=== PATIENT | female | born 1965 | race Two or more races ===

== ENCOUNTER → 2022-06-16 13:52 | Outpatient (BNVA) | payer OTHER, SELFPAY | PROVIDERS: Visit Provider Physician Assistant | DX: E66.9 Obesity, unspecified (principal); Z68.37 Body mass index [BMI] 37.0-37.9, adult; I10 Essential (primary) hypertension; E78.5 Hyperlipidemia, unspecified; E03.9 Hypothyroidism, unspecified; K76.0 Fatty (change of) liver, not elsewhere classified; G47.33 Obstructive sleep apnea (adult) (pediatric) | CPT/HCPCS: 99202 ==

== ENCOUNTER 2022-06-27 09:23 | Outpatient (REF) | payer OTHER, SELFPAY ==
[2022-06-27 09:43] LABS: MANUAL DIFF FLAG NO
[2022-06-27 10:23] LABS: Basophils Percent Auto 0.5 % (0-2); Eosinophils Absolute Auto 0.1 X10*3/uL (0.0-0.4); Eosinophils Percent Auto 1.4 % (0-4); Hematocrit 32.4 % (37.0-47.0); Hemoglobin 10.8 g/dl (12.0-16.0); Imm Gran Abs Auto 0.01 X10*3/uL (0.00-0.03); Imm Gran Pct Auto 0.2 % (0.0-0.4); Lymphocytes Absolute Auto 2.3 X10*3/uL (1.2-4.9); Lymphocytes Percent Auto 39.7 % (20-40); Mean Corpuscular HGB Conc 33.3 g/dl (31.0-35.0); Mean Corpuscular Hemoglobin 30.8 pg (27.0-33.0); Mean Corpuscular Volume 92.3 fL (80.0-98.0); Mean Platelet Volume 9.7 fL (9.4-12.3); Monocytes Absolute Auto 0.4 X10*3/uL (0.1-1.2); Monocytes Percent Auto 7.4 % (2-11); Neutrophils Percent Auto 50.8 % (45-73); Platelet Count 225 X10*3/uL (160-400); Red Blood Count 3.51 X10*6/uL (4.20-5.50); Red Cell Distribution Width 12.3 % (11.0-16.0); White Blood Count 5.8 X10*3/uL (4.8-10.8)
[2022-06-27 10:35] LABS: Estimated Average Glucose 94 mg/dL; Hemoglobin A1c % 4.9 %
[2022-06-27 10:57] LABS: Alanine Aminotransferase 47 U/L (0-31); Albumin Level 4.5 g/dL (3.5-5.0); Alkaline Phosphatase 89 U/L (39-117); Anion Gap 15 (12-20); Aspartate Amino Transferase 40 U/L (5-31); Blood Urea Nitrogen 11 mg/dL (9-16); C Reactive Protein 0.22 mg/dL (< or = 0.50); Calcium 10.1 mg/dL (8.4-10.2); Carbon Dioxide 26 mmol/L (22-29); Chloride 106 mmol/L (96-108); Cholesterol 271 mg/dL; Estimated Glomerular Filt Rate > 60; Glucose Random 92 mg/dL (60-115); HDL Cholesterol 38 mg/dL; Iron 109 mcg/dL (30-160); LDL Cholesterol Calculated 200 mg/dl; Percent Iron Saturation 31 % (15-50); Sodium 143 mmol/L (135-145); Total Iron Binding Capacity 352 mcg/dL (228-428); Triglycerides 167 mg/dL; Unsaturated Iron Binding 243 ug/dL
[2022-06-27 11:30] LABS: Ferritin 322 ng/mL (10-250); TSH reflex Free T4 4.76 uIU/mL (0.32-4.0); Vitamin D 25-OH Total 13.6 ng/mL (>30)
[2022-06-27 11:38] LABS: Folate > 20.0 ng/mL (> or = 4.0); Vitamin B12 380 pg/mL (200-900)
[2022-06-27 12:02] LABS: Free T4 (Free Thyroxine) 0.96 ng/dL (0.71-1.85); Insulin 24 uU/mL (2-29)
[2022-06-29 12:37] LABS: Calcium (PTHI) 10.3 mg/dL (8.6-10.4); PTHI 61 pg/mL (16-77)
[2022-06-30 05:02] LABS: Zinc 102 mcg/dL (60-130)
[2022-07-01 17:36] LABS: Vitamin A 32 mcg/dL (38-98)
[2022-07-02 07:12] LABS: Vitamin B1 9 nmol/L (8-30)
== END 2022-06-27 09:24 | disposition home or self-care (01) ==
LOC: HO.LAB 09:23
PROVIDERS: Visit Provider Physician Assistant
DX: I10 Essential (primary) hypertension (principal); E66.9 Obesity, unspecified; G47.33 Obstructive sleep apnea (adult) (pediatric)
CPT/HCPCS: 36415; 80053; 80061; 82306; 82607; 82728; 82746; 83036; 83525; 83540; 83970; 84425; 84439; 84443; 84590; 84630; 85025; 86140

== ENCOUNTER → 2022-07-25 09:44 | Outpatient (BNVA) | payer OTHER, SELFPAY | PROVIDERS: Visit Provider Physician Assistant | DX: Z11.0 Encounter for screening for intestinal infectious diseases (principal); E66.9 Obesity, unspecified; E78.5 Hyperlipidemia, unspecified; E03.9 Hypothyroidism, unspecified; E50.9 Vitamin A deficiency, unspecified; E55.9 Vitamin D deficiency, unspecified; D64.9 Anemia, unspecified; G47.33 Obstructive sleep apnea (adult) (pediatric) | CPT/HCPCS: 99211; 99212 ==

== ENCOUNTER 2022-07-26 15:09 | Outpatient (REF) | payer OTHER, SELFPAY ==
[2022-07-27 12:16] LABS: H Pylori Breath Test Positive (Negative)
== END 2022-07-26 15:10 | disposition home or self-care (01) ==
LOC: HO.LNP 15:09
PROVIDERS: Visit Provider Physician Assistant
DX: E66.01 Morbid (severe) obesity due to excess calories (principal)
CPT/HCPCS: 83013

== ENCOUNTER → 2022-07-27 10:12 | Outpatient (BNVA) | payer OTHER, SELFPAY | PROVIDERS: Visit Provider Dietitian, Registered | DX: E66.9 Obesity, unspecified (principal) | CPT/HCPCS: 97802 ==

== ENCOUNTER → 2022-08-15 09:41 | Outpatient (BNVA) | payer OTHER, SELFPAY | PROVIDERS: Visit Provider Physician Assistant | DX: Z11.0 Encounter for screening for intestinal infectious diseases (principal); E66.9 Obesity, unspecified; Z68.35 Body mass index [BMI] 35.0-35.9, adult | CPT/HCPCS: 99211; 99212 ==

== ENCOUNTER 2022-08-15 14:36 | Outpatient (REF) | payer OTHER, SELFPAY ==
[2022-08-19 11:04] LABS: H Pylori Breath Test Negative (Negative)
== END 2022-08-15 14:37 | disposition home or self-care (01) ==
LOC: HO.LNP 14:36
PROVIDERS: Visit Provider Physician Assistant
DX: Z01.818 Encounter for other preprocedural examination (principal)
CPT/HCPCS: 83013

== ENCOUNTER → 2022-09-06 15:01 | Outpatient (BNVA) | payer OTHER, SELFPAY | PROVIDERS: Visit Provider Dietitian, Registered | DX: E66.9 Obesity, unspecified (principal); Z68.35 Body mass index [BMI] 35.0-35.9, adult; Z71.3 Dietary counseling and surveillance | CPT/HCPCS: 97803 ==

== ENCOUNTER → 2022-09-12 09:26 | Outpatient (BNVA) | payer OTHER, SELFPAY | PROVIDERS: Visit Provider Physician Assistant | DX: E66.9 Obesity, unspecified (principal); G47.33 Obstructive sleep apnea (adult) (pediatric); I10 Essential (primary) hypertension; Z68.34 Body mass index [BMI] 34.0-34.9, adult | CPT/HCPCS: 99212 ==

== ENCOUNTER → 2022-09-14 12:16 | Outpatient (BNVA) | payer OTHER, SELFPAY | PROVIDERS: Visit Provider Counselor Mental Health | DX: F33.0 Major depressive disorder, recurrent, mild (principal); E66.9 Obesity, unspecified | CPT/HCPCS: 90791 ==

== ENCOUNTER 2022-10-03 11:20 | Outpatient (REF) | payer OTHER, SELFPAY | END 2022-10-03 11:21 | disposition home or self-care (01) | LOC: HO.XRAY 11:20 | PROVIDERS: Visit Provider Physician Assistant | DX: E66.9 Obesity, unspecified (principal); E78.5 Hyperlipidemia, unspecified; E03.9 Hypothyroidism, unspecified; K76.0 Fatty (change of) liver, not elsewhere classified; G47.33 Obstructive sleep apnea (adult) (pediatric); I10 Essential (primary) hypertension; Z79.899 Other long term (current) drug therapy; Z71.3 Dietary counseling and surveillance; Z68.35 Body mass index [BMI] 35.0-35.9, adult | CPT/HCPCS: 99212 ==

== ENCOUNTER → 2022-10-13 09:40 | Outpatient (REF) | payer OTHER, SELFPAY ==
--- NOTE | ~2022-10-13 | XR_ITS ---
EXAMINATION: XR chest 2V CLINICAL INFORMATION: Reason for Exam E66.9 - Obesity, unspecified COMPARISON: None TECHNIQUE: 2 views of the chest FINDINGS: Clear lungs. No pneumothorax or pleural effusion. Normal cardiomediastinal silhouette. XR/XR chest 2V IMPRESSION: * Clear lungs.
--- NOTE | 2022-10-13 10:13 | ECG_ITS ---
Test Reason : E66.9 Obesity Blood Pressure : / mmHG Vent. Rate : 067 BPM Atrial Rate : 067 BPM P-R Int : 162 ms QRS Dur : 086 ms QT Int : 400 ms P-R-T Axes : 030 025 069 degrees QTc Int : 422 ms Normal sinus rhythm Normal ECG No previous ECGs available Referred By: Clary Dietz Electronically Signed By:CLINTON ARANGO MD
== END ==
LOC: HO.CARD 09:40
PROVIDERS: Visit Provider Physician Assistant
DX: E66.9 Obesity, unspecified (principal)
CPT/HCPCS: 71046; 93005; 97803

== ENCOUNTER → 2022-11-03 14:03 | Outpatient (BNVA) | payer OTHER, SELFPAY | PROVIDERS: Visit Provider Physician Assistant | DX: E66.9 Obesity, unspecified (principal); Z68.35 Body mass index [BMI] 35.0-35.9, adult | CPT/HCPCS: 99212 ==

== ENCOUNTER 2022-12-02 09:27 | Outpatient (REF) | payer OTHER, SELFPAY ==
--- NOTE | ~2022-12-02 | US_ITS ---
EXAMINATION: US COMPLETE ABDOMEN WITH LIVER ELASTOGRAPHY CLINICAL INFORMATION: Obesity COMPARISON: None. TECHNIQUE: Real-time imaging of the abdominal viscera. Noninvasive ultrasound liver fibrosis assessment is performed using Yuliya ElastPQ point quantification shear wave elastography (2D-SWE) with a C5-2 MHz transducer. Multiple elastography samples are obtained. FINDINGS: PANCREAS: Normal. The visualized pancreatic head and body are normal in appearance. The remainder of the pancreas is obscured from visualization by the overlying bowel gas. ABDOMINAL AORTA: The proximal, middle, and distal aortic segments are normal in caliber. INFERIOR VENA CAVA: Visualized portions are normal. LIVER: Normal. The liver demonstrates normal size, contour and echogenicity. No focal lesion or intrahepatic biliary duct dilatation. The right lobe measures 15.6 cm in length. The left lobe measures 10.8 cm in length. Portal flow is hepatopedal Shear wave liver elastography median stiffness is 1.86 m/s (reference: normal median stiffness is 1.3 m/s or less). IQR/median stiffness to assess sampling precision is 0.34 (reference: good quality data set is IQR/median stiffness of 0.15 or less). GALLBLADDER: Normal. The gallbladder is physiologically distended without evidence of stones, sludge, polyps, wall thickening or pericholecystic fluid. COMMON BILE DUCT: Normal in caliber measuring 0.6 cm in diameter. RIGHT KIDNEY: Normal. No hydronephrosis. No renal calculi or focal parenchymal lesions. The kidney measures 13.1 cm in maximum dimension. LEFT KIDNEY: Normal. No hydronephrosis. No renal calculi or focal parenchymal lesions. The kidney measures 11.9 cm in maximum dimension. SPLEEN: Normal. The spleen measures 10.2 cm in maximum dimension. FREE FLUID: None. US/US abdomen comp w elastography IMPRESSION: 1. Hepatic steatosis without focal lesion. 2. Liver elastography: Median liver stiffness measures 1.86 m/s corresponding to cACLD (suggestive) REFERENCE: Society of Radiologists in Ultrasound Liver Stiffness Thresholds (2019): LIVER STIFFNESS THRESHOLDS: *Liver Stiffness equal or less than 1.3 m/s: High probability of being normal. *Liver Stiffness less than 1.7 m/s: In the absence of other known clinical signs, rules out compensated advanced chronic liver disease. *Liver Stiffness 1.7-2.1 m/s: Suggestive of compensated advanced chronic liver disease but need further test for confirmation. *Liver Stiffness over 2.1 m/s: Rules in compensated advanced chronic liver disease. *Liver Stiffness over 2.4 m/s: Suggestive of clinically significant portal hypertension. QUALITY OF DATA SET: *IQR/Median value equal or less than 0.15 implies a quality data set. *IQR/Median value over 0.15 implies a poor quality data set. SIGNIFICANT CHANGE FROM PRIOR EXAM: Significant change if liver stiffness measurement is 10% or greater from prior exam. OTHER CONSIDERATIONS: The stage of liver fibrosis may be overestimated in the setting of acute hepatitis, liver inflammation, elevated liver function tests, hepatic vascular congestion, obstructive cholestasis, non-fasting state, and infiltrative diseases such as amyloidosis and lymphoma. In some patients with NAFLD, the liver stiffness thresholds for compensated advanced chronic liver disease may be lower. In causes other than viral hepatitis and NAFLD, liver stiffness thresholds are not well established.
== END 2022-12-02 09:28 | disposition home or self-care (01) ==
LOC: HO.XRAY 09:27
PROVIDERS: Visit Provider Physician Assistant
DX: E66.9 Obesity, unspecified (principal)
CPT/HCPCS: 76705; 76981

== ENCOUNTER 2022-12-13 12:02 | Outpatient (REF) | payer OTHER, SELFPAY ==
[2022-12-13 12:59] LABS: MANUAL DIFF FLAG NO
[2022-12-13 13:18] LABS: Basophils Percent Auto 0.4 % (0-2); Eosinophils Absolute Auto 0.2 X10*3/uL (0.0-0.4); Eosinophils Percent Auto 1.8 % (0-4); Hematocrit 35.1 % (37.0-47.0); Hemoglobin 11.4 g/dl (12.0-16.0); Imm Gran Abs Auto 0.04 X10*3/uL (0.00-0.03); Imm Gran Pct Auto 0.4 % (0.0-0.4); Lymphocytes Absolute Auto 2.7 X10*3/uL (1.2-4.9); Lymphocytes Percent Auto 25.6 % (20-40); Mean Corpuscular HGB Conc 32.5 g/dl (31.0-35.0); Mean Corpuscular Hemoglobin 29.6 pg (27.0-33.0); Mean Corpuscular Volume 91.2 fL (80.0-98.0); Mean Platelet Volume 9.9 fL (9.4-12.3); Monocytes Absolute Auto 0.7 X10*3/uL (0.1-1.2); Monocytes Percent Auto 6.6 % (2-11); Neutrophils Absolute Auto 6.9 x10*3/uL (2.0-8.3); Neutrophils Percent Auto 65.2 % (45-73); Platelet Count 293 X10*3/uL (160-400); Red Blood Count 3.85 X10*6/uL (4.20-5.50); Red Cell Distribution Width 12.2 % (11.0-16.0); White Blood Count 10.5 X10*3/uL (4.8-10.8)
[2022-12-13 14:32] LABS: Vitamin D 25-OH Total 15.7 ng/mL (>30)
== END 2022-12-13 12:03 | disposition home or self-care (01) ==
LOC: HO.LAB 12:02
PROVIDERS: Visit Provider Physician Assistant
DX: E66.9 Obesity, unspecified (principal); I10 Essential (primary) hypertension; E78.5 Hyperlipidemia, unspecified; E03.9 Hypothyroidism, unspecified; K76.0 Fatty (change of) liver, not elsewhere classified; G47.33 Obstructive sleep apnea (adult) (pediatric); D64.9 Anemia, unspecified; E50.9 Vitamin A deficiency, unspecified; E55.9 Vitamin D deficiency, unspecified; Z71.3 Dietary counseling and surveillance; Z68.34 Body mass index [BMI] 34.0-34.9, adult
CPT/HCPCS: 36415; 82306; 84443; 84590; 85025; 99212

== ENCOUNTER → 2022-12-22 12:54 | Outpatient (BNVA) | payer OTHER, SELFPAY | PROVIDERS: Visit Provider Dietitian, Registered | DX: E66.9 Obesity, unspecified (principal); Z68.34 Body mass index [BMI] 34.0-34.9, adult | CPT/HCPCS: 97803 ==

== ENCOUNTER 2023-01-03 10:20 | Outpatient (REF) | payer OTHER, SELFPAY ==
--- NOTE | ~2023-01-03 | FL_ITS ---
PROCEDURE: XR FLUOROSCOPY UPPER GI WITH AIR CLINICAL INFORMATION: Preop. Morbid obesity. COMPARISON: None available. TECHNIQUE: Routine upper GI air-contrast study was performed in upright and lying position. FINDINGS: Following oral administration of thick barium and effervescent granules there is normal propagation of bolus from the oral cavity through the pharynx, esophagus into stomach without any evidence of obstruction, narrowing or stricture. On placing patient lying there is moderate gastroesophageal reflux without hiatal hernia. Rest of the course of the stomach, duodenal bulb and the sweep is normal. The mucosal pattern of stomach and the duodenum is normal. FLUOROSCOPY TIME: 1.2 minutes DOSE AREA PRODUCT: 33.155 uGy-m2 (microgray-meter squared) FL/FL upper GI w air IMPRESSION: Moderate gastroesophageal reflux without hiatal hernia.
== END 2023-01-03 10:21 | disposition home or self-care (01) ==
LOC: HO.XRAY 10:20
PROVIDERS: Visit Provider Physician Assistant
DX: G93.2 Benign intracranial hypertension (principal); E66.9 Obesity, unspecified
CPT/HCPCS: 74246

== ENCOUNTER → 2023-01-16 13:25 | Outpatient (BNVA) | payer OTHER, SELFPAY | PROVIDERS: Visit Provider Physician Assistant | DX: E66.9 Obesity, unspecified (principal); E78.5 Hyperlipidemia, unspecified; E03.9 Hypothyroidism, unspecified; I10 Essential (primary) hypertension; G47.33 Obstructive sleep apnea (adult) (pediatric); Z68.34 Body mass index [BMI] 34.0-34.9, adult | CPT/HCPCS: 99212 ==

== ENCOUNTER → 2023-01-18 14:04 | Outpatient (BNVA) | payer OTHER, SELFPAY | PROVIDERS: Visit Provider Surgery | DX: E66.9 Obesity, unspecified (principal); E55.9 Vitamin D deficiency, unspecified; E50.9 Vitamin A deficiency, unspecified; E78.5 Hyperlipidemia, unspecified; F33.0 Major depressive disorder, recurrent, mild; D64.9 Anemia, unspecified; G47.33 Obstructive sleep apnea (adult) (pediatric); K76.0 Fatty (change of) liver, not elsewhere classified; I10 Essential (primary) hypertension; A04.8 Other specified bacterial intestinal infections; Z68.34 Body mass index [BMI] 34.0-34.9, adult | CPT/HCPCS: 99212 ==

== ENCOUNTER → 2023-01-24 10:49 | Outpatient (BNVA) | payer OTHER, SELFPAY | PROVIDERS: Visit Provider Surgery | DX: E66.9 Obesity, unspecified (principal); D64.9 Anemia, unspecified; I10 Essential (primary) hypertension; E78.5 Hyperlipidemia, unspecified; E03.9 Hypothyroidism, unspecified; K76.0 Fatty (change of) liver, not elsewhere classified; G47.33 Obstructive sleep apnea (adult) (pediatric); A04.8 Other specified bacterial intestinal infections; E50.9 Vitamin A deficiency, unspecified; E55.9 Vitamin D deficiency, unspecified; F33.0 Major depressive disorder, recurrent, mild; Z99.89 Dependence on other enabling machines and devices | CPT/HCPCS: 99211; 99212 ==

== ENCOUNTER 2023-01-24 18:26 | Outpatient (REF) | payer OTHER, SELFPAY ==
[2023-01-27 11:17] LABS: H Pylori Breath Test Negative (Negative)
== END 2023-01-24 18:27 | disposition home or self-care (01) ==
LOC: HO.LNP 18:26
PROVIDERS: Visit Provider Surgery
DX: A04.8 Other specified bacterial intestinal infections (principal)
CPT/HCPCS: 83013

== ENCOUNTER 2023-01-26 08:43 | Outpatient (REF) | payer OTHER, SELFPAY ==
[2023-01-26 09:06] LABS: MANUAL DIFF FLAG NO
[2023-01-26 09:49] LABS: Basophils Absolute Auto 0.1 X10*3/uL (0.0-0.2); Eosinophils Absolute Auto 0.1 X10*3/uL (0.0-0.4); Hematocrit 30.2 % (37.0-47.0); Hemoglobin 10.2 g/dl (12.0-16.0); Imm Gran Abs Auto 0.02 X10*3/uL (0.00-0.03); Imm Gran Pct Auto 0.3 % (0.0-0.4); Lymphocytes Absolute Auto 2.3 X10*3/uL (1.2-4.9); Lymphocytes Percent Auto 37.7 % (20-40); Mean Corpuscular HGB Conc 33.8 g/dl (31.0-35.0); Mean Corpuscular Hemoglobin 30.3 pg (27.0-33.0); Mean Corpuscular Volume 89.6 fL (80.0-98.0); Mean Platelet Volume 9.7 fL (9.4-12.3); Monocytes Absolute Auto 0.5 X10*3/uL (0.1-1.2); Monocytes Percent Auto 8.9 % (2-11); Neutrophils Percent Auto 50.1 % (45-73); Platelet Count 256 X10*3/uL (160-400); Red Blood Count 3.37 X10*6/uL (4.20-5.50); Red Cell Distribution Width 12.8 % (11.0-16.0); White Blood Count 6.1 X10*3/uL (4.8-10.8)
[2023-01-26 09:54] LABS: INTERNATIONAL NORM RATIO 1.1 (0.9-1.1); Prothrombin Time 12.1 SEC (10.0-13.1)
[2023-01-26 09:57] LABS: Partial Thromboplastin Time 35.3 SEC (26.0-36.4)
[2023-01-26 10:01] LABS: Estimated Average Glucose 94 mg/dL; Hemoglobin A1c % 4.9 %
[2023-01-26 10:29] LABS: Alanine Aminotransferase 30 U/L (0-31); Albumin Level 4.1 g/dL (3.5-5.0); Alkaline Phosphatase 94 U/L (39-117); Anion Gap 12 (12-20); Aspartate Amino Transferase 29 U/L (5-31); Bilirubin Total 1.8 mg/dL (0.0-1.0); Blood Urea Nitrogen 12 mg/dL (9-16); C Reactive Protein 0.15 mg/dL (< or = 0.50); Calcium 9.5 mg/dL (8.4-10.2); Carbon Dioxide 24 mmol/L (22-29); Chloride 109 mmol/L (96-108); Cholesterol 182 mg/dL; Estimated Glomerular Filt Rate > 60; Glucose Random 93 mg/dL (60-115); HDL Cholesterol 39 mg/dL; Iron 170 mcg/dL (30-160); LDL Cholesterol Calculated 121 mg/dl; Percent Iron Saturation 63 % (15-50); Potassium 4.2 mmol/L (3.3-5.1); Sodium 141 mmol/L (135-145); Total Iron Binding Capacity 272 mcg/dL (228-428); Total Protein 7.2 g/dL (6.5-8.0); Triglycerides 112 mg/dL; Unsaturated Iron Binding 102 ug/dL
[2023-01-26 10:55] LABS: Ferritin 489 ng/mL (10-250); TSH reflex Free T4 3.06 uIU/mL (0.32-4.0); Vitamin B12 560 pg/mL (200-900); Vitamin D 25-OH Total 15.2 ng/mL (>30)
[2023-01-30 15:24] LABS: Calcium (PTHI) 9.7 mg/dL (8.6-10.4); PTHI 59 pg/mL (16-77)
[2023-01-31 05:39] LABS: Zinc 79 mcg/dL (60-130)
[2023-02-02 01:14] LABS: Vitamin A 32 mcg/dL (38-98)
[2023-02-02 12:03] LABS: Vitamin B1 22 nmol/L (8-30)
== END 2023-01-26 08:44 | disposition home or self-care (01) ==
LOC: HO.LAB 08:43
PROVIDERS: Visit Provider Surgery
DX: I10 Essential (primary) hypertension (principal); A04.8 Other specified bacterial intestinal infections; D64.9 Anemia, unspecified; E03.9 Hypothyroidism, unspecified; E50.9 Vitamin A deficiency, unspecified; E55.9 Vitamin D deficiency, unspecified; E66.9 Obesity, unspecified; E78.5 Hyperlipidemia, unspecified; F33.0 Major depressive disorder, recurrent, mild; G47.33 Obstructive sleep apnea (adult) (pediatric); K76.0 Fatty (change of) liver, not elsewhere classified
CPT/HCPCS: 36415; 80053; 80061; 82306; 82607; 82728; 83036; 83540; 83970; 84425; 84443; 84590; 84630; 85025; 85610; 85730; 86140

== ENCOUNTER → 2023-02-01 12:19 | Outpatient (BNVA) | payer OTHER, SELFPAY | PROVIDERS: Visit Provider Physician Assistant | DX: E66.9 Obesity, unspecified (principal); D64.9 Anemia, unspecified; I10 Essential (primary) hypertension; G47.33 Obstructive sleep apnea (adult) (pediatric); E03.9 Hypothyroidism, unspecified; Z68.33 Body mass index [BMI] 33.0-33.9, adult | CPT/HCPCS: 99212 ==

== ENCOUNTER → 2023-02-08 09:13 | Outpatient (BNVA) | payer OTHER, SELFPAY | PROVIDERS: Visit Provider Physician Assistant | DX: D64.9 Anemia, unspecified (principal); E66.9 Obesity, unspecified; I10 Essential (primary) hypertension; E78.5 Hyperlipidemia, unspecified; E03.9 Hypothyroidism, unspecified; K76.0 Fatty (change of) liver, not elsewhere classified; G47.33 Obstructive sleep apnea (adult) (pediatric); A04.8 Other specified bacterial intestinal infections; F33.0 Major depressive disorder, recurrent, mild; E55.9 Vitamin D deficiency, unspecified; E50.9 Vitamin A deficiency, unspecified ==

== ENCOUNTER → 2023-03-01 12:44 | Outpatient (BNVA) | payer OTHER, SELFPAY | PROVIDERS: Visit Provider Physician Assistant | DX: E66.9 Obesity, unspecified (principal); Z68.34 Body mass index [BMI] 34.0-34.9, adult; D64.9 Anemia, unspecified | CPT/HCPCS: 99212 ==

== ENCOUNTER → 2023-03-29 10:31 | Outpatient (BNVA) | payer OTHER, SELFPAY | PROVIDERS: Visit Provider Physician Assistant | DX: E66.9 Obesity, unspecified (principal); D64.9 Anemia, unspecified; D57.1 Sickle-cell disease without crisis; I10 Essential (primary) hypertension; E78.5 Hyperlipidemia, unspecified; G47.33 Obstructive sleep apnea (adult) (pediatric); E55.9 Vitamin D deficiency, unspecified; Z68.34 Body mass index [BMI] 34.0-34.9, adult; Z99.89 Dependence on other enabling machines and devices | CPT/HCPCS: 99212 ==

== ENCOUNTER 2023-05-25 10:03 | Outpatient (REF) | payer OTHER, SELFPAY ==
[2023-05-25 10:57] LABS: MANUAL DIFF FLAG NO
[2023-05-25 11:30] LABS: Basophils Absolute Auto 0.1 X10*3/uL (0.0-0.2); Basophils Percent Auto 0.7 % (0-2); Eosinophils Absolute Auto 0.1 X10*3/uL (0.0-0.4); Eosinophils Percent Auto 1.5 % (0-4); Hematocrit 32.1 % (37.0-47.0); Hemoglobin 10.7 g/dl (12.0-16.0); Imm Gran Abs Auto 0.02 X10*3/uL (0.00-0.03); Imm Gran Pct Auto 0.3 % (0.0-0.4); Lymphocytes Percent Auto 44.8 % (20-40); Mean Corpuscular HGB Conc 33.3 g/dl (31.0-35.0); Mean Corpuscular Hemoglobin 29.8 pg (27.0-33.0); Mean Corpuscular Volume 89.4 fL (80.0-98.0); Mean Platelet Volume 9.3 fL (9.4-12.3); Monocytes Absolute Auto 0.4 X10*3/uL (0.1-1.2); Monocytes Percent Auto 6.6 % (2-11); Neutrophils Absolute Auto 3.1 x10*3/uL (2.0-8.3); Neutrophils Percent Auto 46.1 % (45-73); Platelet Count 252 X10*3/uL (160-400); Red Blood Count 3.59 X10*6/uL (4.20-5.50); Red Cell Distribution Width 12.6 % (11.0-16.0); White Blood Count 6.7 X10*3/uL (4.8-10.8)
[2023-05-25 12:55] LABS: Vitamin D 25-OH Total 39.3 ng/mL (>30)
== END 2023-05-25 10:04 | disposition home or self-care (01) ==
LOC: HO.LAB 10:03
PROVIDERS: Visit Provider Physician Assistant
DX: E66.9 Obesity, unspecified (principal); G47.33 Obstructive sleep apnea (adult) (pediatric); I10 Essential (primary) hypertension; E55.9 Vitamin D deficiency, unspecified; D64.9 Anemia, unspecified; Z90.3 Acquired absence of stomach [part of]
CPT/HCPCS: 36415; 82306; 85025; 99212

== ENCOUNTER 2023-05-25 10:03 | Outpatient (AMB) | payer OTHER, SELFPAY ==
--- NOTE | 2023-05-25 10:09 | A.OFFVIS_ITS ---
Intake VS Expanded 05/25/23 10:22 Height 5 ft 1 in Weight 187 lb 12.8 oz BMI 35.5 BP 110/54 L Blood Pressure Location Rt radial Blood Pressure Position Sitting Pulse 82 Pulse Source Pulse Oximeter Temp 96.2 F L Temperature Source Tympanic Pulse Oximetry 96 Oxygen Delivery Method Room Air Body Fat 86.0 Body Fat Percentage 45.8 Free Fat Mass 101.6 Muscle Mass 96.6 Visceral Mass 13.0 Water Mass 72.0 BMR 1,433 Intake Visit Reasons: (OV) F/U SWL Allergies No Known Allergies Allergy (Verified 05/25/23 10:25) HPI HPI Comments History of Present Illness Details SWL follow up, has finished all pre-operative work up but was found to be anemic (10.2, despite po iron therapy) in January on repeat lab studies. Vit D level was 14.4 - given 50, k uints weekly for 3 months. No retest done yet. 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 Colonoscopy - normal in February 2017. Saw hematolgoist in April for iron therapy treatment. Labs drawn 2 times - no iron therapy ordered. Follow up in September - [phone]. Nelson has gained 7 lbs since last appt in February - stopped exercise. Will restart doing videos. Living at her daughters house now and harder to stick with the meal plan. PFSH Surgical History Hx of section Family History Mother High cholesterol Father No problems noted. Social History Alcohol intake: never Patient Tobacco Use Status: Never used Tobacco Assessment & Plan Assessment & Plan (1) Obesity: Code(s): E66.9 - Obesity, unspecified Plan: We still do not have an answer regarding the etiology behnd her anemia. Will call the hematology office today to obtain the office notes. Will get repeat Vit D today. Once I have this (GI notes in chart from February) will discuss next steps with Dr Esposito. She will restart her exercise videos. Meal plan of 2 shake, 1 meal and either 1 bar or yogurt or 2 hb eggs per day. Next appt with me in 1 month. Patient is morbidly obese and is not considered stable at this time. I spent 20 minutes in total with patient reviewing/updating records, examining the patient and counseling the patient on weight management as detailed above. (2) Vitamin D deficiency: Code(s): E55.9 - Vitamin D deficiency, unspecified (3) Anemia: Code(s): D64.9 - Anemia, unspecified Orders: Orders Vitamin D 25-OH Total Today Z90.3 - Acquired absence of stomach [part of] Coding Level of Care Code Est Pt Level 3 (76177) Diagnoses Obesity E66.9 Vitamin D deficiency E55.9 Anemia D64.9
[2023-05-25 10:22] VITALS: BP 110/54; PULSE 82; TEMP 35.7; O2SAT 96; BMI 35.5
== END 2023-05-25 10:38 | disposition home or self-care (01) ==
PROVIDERS: Visit Provider Physician Assistant
DX: E66.9 Obesity, unspecified (principal); Z68.35 Body mass index [BMI] 35.0-35.9, adult; E55.9 Vitamin D deficiency, unspecified; D64.9 Anemia, unspecified
CPT/HCPCS: 99213

== ENCOUNTER 2023-06-13 11:37 | Outpatient (AMB) | payer OTHER, SELFPAY ==
--- NOTE | 2023-06-13 11:37 | MHC.OFFVISWM ---
Intake VS Expanded 06/13/23 11:43 Height 5 ft 1 in Weight 187 lb 9.6 oz BMI 35.4 BP 113/53 L Blood Pressure Location Rt brachial Blood Pressure Position Sitting Pulse 80 Pulse Source Pulse Oximeter Temp 96.3 F L Temperature Source Tympanic Pulse Oximetry 96 Oxygen Delivery Method Room Air Body Fat 86.2 Body Fat Percentage 46.0 Free Fat Mass 101.2 Muscle Mass 96.2 Visceral Mass 13.0 Water Mass 71.6 BMR 1,428 Intake Visit Reasons: (OV) F/U SWL (Clary) Allergies No Known Allergies Allergy (Verified 05/25/23 10:25) HPI HPI Comments History of Present Illness Details The patient is a 57-year-old woman who began experiencing obesity and comorbidities later in life after giving to her children. She reports a history of obstructive sleep apnea requiring CPAP, hypertension, hyperlipidemia and had previously been enrolled at [facility]'s surgical weight loss program. Limited records from [facility] GI indicate h/o cirrhosis & Sickle Cell trait. She reports trying different diets, unsuccessfully and has always experienced weight regain after transitioning back to her regular diet. Today, the patient has a weight of 187.6 lb/BMI 35.4 and notes over 10 lb of weight gain. She is having difficulty with the current diet due to living with her daughter. The patient has required iron therapy due to ongoing anemia from unclear etiology. Colonoscopy record from [facility] indicates a history of cirrhosis and follow-up with colonoscopy was recommended in 10 years. Unfortunately, I do not have all of the [facility] records on her anemia workup. At this time, the patient notes that due to family/life stressors she is not currently following the diet and not exercising. Previously, her extent of exercise includes walking around the block occasionally. Patient transferred her care from [facility] and entered the surgical weight loss program May, with a weight of 199 lb/BMI 37.7. During her workup, she was noted to have H pylori in addition to vitamin-A and vitamin-D deficiency. ROMA 1 ESS 10 GERD 1 QOL 106 Pre op work up completed as follows: SWL classes -? 05/02 appts - 08/01 - rescheduled to 08/24 , now initial appt is on , cleared? ? ? RD appts? - 07/27, seen twice, recommends more time in program, now cleared H pylori - negative Labs - anemia, Vit A and D deficiency, elevated TSH and hypercholesteremia CXR, ECG - both normal UGI - ordered on October 03, done 01/03 - moderate reflux, no HH ULS - done at [facility] [place], records reviewed and scanned into chart, steatosis only. Liver elastography done Oct 2022 - steatosis only. [facility] Surgical History Hx of section Family History Mother High cholesterol Father No problems noted. Social History Alcohol intake: never Patient Tobacco Use Status: Never used Tobacco Review of Systems Const All systems reviewed & are unremarkable except as noted in HPI and below Reports as per HPI Physical Exam On exam, she is anicteric and nontoxic She is in no acute respiratory distress Abdomen is soft with no tenderness Results Reviewed Results Reviewed: Repeat urease breath test is neegative Labs from 05/25/2023 Slight anemia at Hb 10.7 noted; white blood cell count 6.7, platelet count 252K Chemistries 06/27/2022 Vitamin-A and vitamin-D deficiency is noted Liver function tests show AST elevated at 40, ALT elevated at 47 Hemoglobin A1c 4.9 Patient's H pylori was positive on 07/26/2022 Retest H pylori negative on 08/15/2022 Diagnostic imaging UGI: no HH, Moderate GERD Abd U/S: NAFLD & hepatic fibrosis CXR: NAD Assessment & Plan Assessment & Plan (1) Obesity: Code(s): E66.9 - Obesity, unspecified (2) Steatosis, liver: Code(s): K76.0 - Fatty (change of) liver, not elsewhere classified (3) HTN (hypertension), benign: Code(s): I10 - Essential (primary) hypertension (4) Hyperlipidemia: Code(s): E78.5 - Hyperlipidemia, unspecified (5) Anemia: Code(s): D64.9 - Anemia, unspecified (6) Obstructive sleep apnea: Comment: uses CPAP nightly Code(s): G47.33 - Obstructive sleep apnea (adult) (pediatric) (7) Major depressive disorder, recurrent, mild: Code(s): F33.0 - Major depressive disorder, recurrent, mild (8) Sickle cell anemia: Code(s): D57.1 - Sickle-cell disease without crisis Plan The importance of healthy diet and increased activity/exercise to the augment surgical weight loss was reviewed with the patient. She noted that she has a follow-up with Clary Dietz PA-C next month and is trying to focus on making healthy lifestyle changes. Patient has requested that we obtain information regarding her anemia workup from [facility]. Explained that at this time, I do not have enough information regarding her anemia or other possible comorbidities to recommend operative intervention. Addition, explained that she would likely have weight regain based on her current diet and lack of exercise, consequently, she will refocus her efforts. Coding Level of Care Code Est Pt Level 4 (29860) Diagnoses Obesity E66.9 Steatosis, liver K76.0 HTN (hypertension), benign I10 Hyperlipidemia E78.5 Anemia D64.9 Obstructive sleep apnea G47.33 Major depressive disorder, recurrent, mild F33.0 Sickle cell anemia D57.1
[2023-06-13 11:43] VITALS: BP 113/53; PULSE 80; TEMP 35.7; O2SAT 96; BMI 35.4
== END 2023-06-13 12:08 | disposition home or self-care (01) ==
LOC: HO.HBS 11:37
PROVIDERS: Visit Provider Surgery
DX: E66.9 Obesity, unspecified (principal); Z68.35 Body mass index [BMI] 35.0-35.9, adult
CPT/HCPCS: 99213

== ENCOUNTER → 2023-06-13 11:37 | Outpatient (BNVA) | payer OTHER, SELFPAY | PROVIDERS: Visit Provider Surgery ==

== ENCOUNTER 2023-06-20 15:31 | Outpatient (AMB) | payer OTHER, SELFPAY ==
--- NOTE | 2023-06-20 15:32 | MHC.OFFVISWM ---
Intake VS Expanded 06/20/23 15:37 Height 5 ft 1 in Weight 181 lb 9.6 oz BMI 34.3 BP 119/64 Blood Pressure Location Rt brachial Blood Pressure Position Sitting Pulse 86 Pulse Source Pulse Oximeter Temp 96.7 F L Temperature Source Tympanic Pulse Oximetry 95 Oxygen Delivery Method Room Air Body Fat 83.8 Body Fat Percentage 46.2 Free Fat Mass 97.6 Muscle Mass 92.6 Visceral Mass 12.0 Water Mass 69.2 BMR 1,383 Intake Visit Reasons: follow up Allergies No Known Allergies Allergy (Verified 06/20/23 15:40) HPI HPI Comments History of Present Illness Details The patient is a 57-year-old woman who began experiencing obesity and comorbidities later in life after giving to her children. She reports a history of obstructive sleep apnea requiring CPAP, hypertension, hyperlipidemia and had previously been enrolled at [facility]'s surgical weight loss program. Limited records from [facility] GI indicate h/o cirrhosis & Sickle Cell trait. She reports trying different diets, unsuccessfully and has always experienced weight regain after transitioning back to her regular diet. Today, the patient has a weight of 181.6 lb/BMI 34.3. She was having difficulty with the current diet due to living with her daughter, but notes she is living with her son and her diet is improved.. The patient has required iron therapy due to ongoing anemia from unclear etiology. Colonoscopy record from [facility] indicates a history of cirrhosis and follow-up with colonoscopy was recommended in 10 years. Unfortunately, I do not have all of the [facility] records on her anemia workup. At this time, the patient notes that due to family/life stressors she is trying to follow her diet but is not regularly exercising. Previously, her extent of exercise includes walking around the block occasionally. She was congratulated on her interval weight loss since last appointment with me. I was able to obtain hematology notes from Dianna Fisher NP dated 03/07/23 & Robin George MD from 05/03/23 from Hematology at [facility]. I explained to the patient that the February note indicated the patient may not follow through with bariatric surgery if it would make her anemia worse; Dr. George's note from 05/03/2023 indicates that the patient is likely at risk, but up to a 3 fold worsening of anemia can occur after bariatric surgery. The possible need for ongoing supplementation and possible iron infusion was discussed with the patient. She requested some time to consider this and is unsure whether she should have surgery. She is in agreement to follow-up with me in 1 month and will see Clary Dietz PA-C net week. Patient transferred her care from [facility] and entered the surgical weight loss program May, with a weight of 199 lb/BMI 37.7. During her workup, she was noted to have H pylori in addition to vitamin-A and vitamin-D deficiency. ROMA 1 ESS 10 GERD 1 QOL 106 Pre op work up completed as follows: SWL classes -? 05/02 [facility] appts - 08/01 - rescheduled to 08/24 , now initial appt is on , cleared? ? ? RD appts? - 07/27, seen twice, recommends more time in program, now cleared H pylori - negative Labs - anemia, Vit A and D deficiency, elevated TSH and hypercholesteremia CXR, ECG - both normal UGI - ordered on October 03, done 01/03 - moderate reflux, no HH ULS - done at [facility] [place], records reviewed and scanned into chart, steatosis only. Liver elastography done Oct 2022 - steatosis only. [facility] Surgical History Hx of section Family History Mother High cholesterol Father No problems noted. Social History Alcohol intake: never Patient Tobacco Use Status: Never used Tobacco Review of Systems Const All systems reviewed & are unremarkable except as noted in HPI and below Reports as per HPI Physical Exam Vital Signs: Last Vital Signs Temp 96.7 F L 06/20/23 15:37 Pulse 86 06/20/23 15:37 BP 119/64 06/20/23 15:37 Pulse Ox 95 06/20/23 15:37 Oxygen Delivery Method Room Air 06/20/23 15:37 BMI result Body Mass Index 34.3 On exam, she is anicteric and nontoxic She is in no acute respiratory distress Abdomen is soft with no tenderness Results Reviewed Results Reviewed: Repeat urease breath test is neegative Labs from 05/25/2023 Slight anemia at Hb 10.7 noted; white blood cell count 6.7, platelet count 252K Chemistries 06/27/2022 Vitamin-A and vitamin-D deficiency is noted Liver function tests show AST elevated at 40, ALT elevated at 47 Hemoglobin A1c 4.9 Patient's H pylori was positive on 07/26/2022 Retest H pylori negative on 08/15/2022 Diagnostic imaging UGI: no HH, Moderate GERD Abd U/S: NAFLD & hepatic fibrosis CXR: NAD Assessment & Plan Assessment & Plan (1) Obesity: Code(s): E66.9 - Obesity, unspecified (2) HTN (hypertension), benign: Code(s): I10 - Essential (primary) hypertension (3) Hyperlipidemia: Code(s): E78.5 - Hyperlipidemia, unspecified (4) Hypothyroidism (acquired): Code(s): E03.9 - Hypothyroidism, unspecified (5) Steatosis, liver: Code(s): K76.0 - Fatty (change of) liver, not elsewhere classified (6) Obstructive sleep apnea: Comment: uses CPAP nightly Code(s): G47.33 - Obstructive sleep apnea (adult) (pediatric) (7) Anemia: Code(s): D64.9 - Anemia, unspecified (8) Vitamin A deficiency: Code(s): E50.9 - Vitamin A deficiency, unspecified (9) Vitamin D deficiency: Code(s): E55.9 - Vitamin D deficiency, unspecified (10) Major depressive disorder, recurrent, mild: Code(s): F33.0 - Major depressive disorder, recurrent, mild (11) Sickle cell anemia: Code(s): D57.1 - Sickle-cell disease without crisis Plan The patient requested some time to process the information. It is unclear that she understands the importance of follow-up based on today's conversation. She states that she was unaware she had follow-up appointments with [facility] hematology but would like to follow-up with medical/surgical weight loss options while she considers whether not she wishes to proceed with surgery. No changes were made to her meal plan in the importance of following the meal plan and exercising to augment surgical weight loss was again reviewed. Patient notes ongoing difficulty but has made improvements over the past few weeks. Patient will follow-up with me in 1 month. Coding Level of Care Code Est Pt Level 4 (22390) Diagnoses Obesity E66.9 HTN (hypertension), benign I10 Hyperlipidemia E78.5 Hypothyroidism (acquired) E03.9 Steatosis, liver K76.0 Obstructive sleep apnea G47.33 Anemia D64.9 Vitamin A deficiency E50.9 Vitamin D deficiency E55.9 Major depressive disorder, recurrent, mild F33.0 Sickle cell anemia D57.1
[2023-06-20 15:37] VITALS: BP 119/64; PULSE 86; TEMP 35.9; O2SAT 95; BMI 34.3
== END 2023-06-20 16:45 | disposition home or self-care (01) ==
PROVIDERS: Visit Provider Surgery
DX: E66.9 Obesity, unspecified (principal); Z68.34 Body mass index [BMI] 34.0-34.9, adult; E78.5 Hyperlipidemia, unspecified; E03.9 Hypothyroidism, unspecified; K76.0 Fatty (change of) liver, not elsewhere classified; G47.33 Obstructive sleep apnea (adult) (pediatric); D64.9 Anemia, unspecified; E50.9 Vitamin A deficiency, unspecified; E55.9 Vitamin D deficiency, unspecified; F33.0 Major depressive disorder, recurrent, mild; D57.1 Sickle-cell disease without crisis
CPT/HCPCS: 99214

== ENCOUNTER → 2023-06-20 15:31 | Outpatient (BNVA) | payer OTHER, SELFPAY | PROVIDERS: Visit Provider Surgery | DX: E66.9 Obesity, unspecified (principal); K76.0 Fatty (change of) liver, not elsewhere classified; I10 Essential (primary) hypertension; E03.9 Hypothyroidism, unspecified; E78.00 Pure hypercholesterolemia, unspecified; E50.9 Vitamin A deficiency, unspecified; E55.9 Vitamin D deficiency, unspecified; D64.9 Anemia, unspecified; D57.1 Sickle-cell disease without crisis; F33.0 Major depressive disorder, recurrent, mild; G47.33 Obstructive sleep apnea (adult) (pediatric); Z68.34 Body mass index [BMI] 34.0-34.9, adult; Z99.89 Dependence on other enabling machines and devices | CPT/HCPCS: 99212 ==

== ENCOUNTER 2023-06-28 10:17 | Outpatient (AMB) | payer OTHER, SELFPAY ==
--- NOTE | 2023-06-28 10:22 | MHC.OFFVISWM ---
Intake VS Expanded 06/28/23 10:32 BP 105/56 L Blood Pressure Location Rt brachial Blood Pressure Position Sitting Pulse 74 Pulse Source Pulse Oximeter Temp 96.4 F L Temperature Source Tympanic Pulse Oximetry 97 Oxygen Delivery Method Room Air Height 5 ft 1 in Weight 186 lb 6.4 oz BMI 35.2 Body Fat % 46.2 Body Fat Mass 86.0 Fat Free Mass 100.4 Visceral Fat Rating 13.0 Body Water % 38.2 Body Water Mass 71.2 Muscle Mass/Score 95.2 Basal Metabolic Rate/Score 1,418 Intake Visit Reasons: (OV) F/U SWL Communication Assistant Required: No Allergies No Known Allergies Allergy (Verified 06/28/23 10:23) Medication List - Last Reconciled 06/28/23 by JESSE Davis-Yuan aspirin 81 mg PO DAILY B complex-vitamin C-folic acid 400 mcg ER 1 tab PO DAILY bupropion HCl 150 mg PO DAILY cholecalciferol (vitamin D3) 25 mcg PO DAILY docusate sodium (Colace) 100 mg PO BID ferrous sulfate 325 mg PO DAILY fluoxetine 40 mg PO DAILY levothyroxine 300 mcg PO DAILY topiramate 25 mg PO QPM HPI HPI Comments History of Present Illness Details SWL follow up. Pt has been seeing Dr Esposito also re: work up of chronic anemia. Unsure is she is appropriate surgical candidate but wants ot continue with weight loss. [employer] weigh of 201.8 lbs, lowest weight in our program was 178 lbs, with recent 8 lb weight gain. Appt with hematology at [facility] [place] in September for follow up. Only takes iron supplements 3d/week due to constipation. Finished bottle 1 week ago. Normally takes in the morning. Has not been consistent with her meal plan. Stopped exercising a few weeks ago due to being tired. She can not tell me the name of the videos she used to do. [facility] Surgical History Hx of section Family History Mother High cholesterol Father No problems noted. Social History Alcohol intake: never Patient Tobacco Use Status: Never used Tobacco Physical Exam Vital Signs: Last Vital Signs Temp 96.4 F L 06/28/23 10:32 Pulse 74 06/28/23 10:32 BP 105/56 L 06/28/23 10:32 Pulse Ox 97 06/28/23 10:32 Oxygen Delivery Method Room Air 06/28/23 10:32 BMI result Body Mass Index 35.2 Assessment & Plan Assessment & Plan (1) Obesity: Code(s): E66.9 - Obesity, unspecified Plan: Has gained 8 lbs recently from her original weight loss of 23 lbs. We discussed her restarting regular exercise and adherence to our meal plan for continued weight loss. Meal plan: 10 am - shake 1 pm - shake 4pm - yogurt or bar 7 pm- chicken or pork with beans and salad or vegetables Exercise - LS 2 miles or TBP videos - 5d/ week Next appt with Dr Esposito later this month. (2) Anemia: Code(s): D64.9 - Anemia, unspecified Plan: Sickle cell trait Not using iron supplements regualry - refilled today. Reminded to take at bedtime with Vit C. (3) HTN (hypertension), benign: Code(s): I10 - Essential (primary) hypertension (4) Hyperlipidemia: Code(s): E78.5 - Hyperlipidemia, unspecified (5) Hypothyroidism (acquired): Code(s): E03.9 - Hypothyroidism, unspecified (6) Steatosis, liver: Code(s): K76.0 - Fatty (change of) liver, not elsewhere classified (7) Obstructive sleep apnea: Comment: uses CPAP nightly Code(s): G47.33 - Obstructive sleep apnea (adult) (pediatric) Medications: New ascorbic acid (vitamin C) 500 mg PO BEDTIME 30 caps 5RF Refilled ferrous sulfate 325 mg PO DAILY 30 tabs 6RF Coding Level of Care Code Est Pt Level 4 (93708) Diagnoses Obesity E66.9 Anemia D64.9 HTN (hypertension), benign I10 Hyperlipidemia E78.5 Hypothyroidism (acquired) E03.9 Steatosis, liver K76.0 Obstructive sleep apnea G47.33
[2023-06-28 10:32] VITALS: BP 105/56; PULSE 74; TEMP 35.8; O2SAT 97; BMI 35.2
== END 2023-06-28 11:00 | disposition home or self-care (01) ==
PROVIDERS: Visit Provider Physician Assistant
DX: E66.9 Obesity, unspecified (principal); Z68.35 Body mass index [BMI] 35.0-35.9, adult; D64.9 Anemia, unspecified; I10 Essential (primary) hypertension; E78.5 Hyperlipidemia, unspecified; E03.9 Hypothyroidism, unspecified; K76.0 Fatty (change of) liver, not elsewhere classified; G47.33 Obstructive sleep apnea (adult) (pediatric)
CPT/HCPCS: 99214

== ENCOUNTER → 2023-06-28 10:17 | Outpatient (BNVA) | payer OTHER, SELFPAY | PROVIDERS: Visit Provider Physician Assistant | DX: E66.9 Obesity, unspecified (principal); K76.0 Fatty (change of) liver, not elsewhere classified; D64.9 Anemia, unspecified; I10 Essential (primary) hypertension; E03.9 Hypothyroidism, unspecified; E78.5 Hyperlipidemia, unspecified; G47.33 Obstructive sleep apnea (adult) (pediatric); Z68.35 Body mass index [BMI] 35.0-35.9, adult; Z90.3 Acquired absence of stomach [part of] | CPT/HCPCS: 99212 ==

== ENCOUNTER 2023-08-09 07:57 | Outpatient (AMB) | payer OTHER, SELFPAY ==
[2023-08-09 07:57] VITALS: BP 122/59; PULSE 83; TEMP 35.8; O2SAT 96; BMI 35.5
--- NOTE | 2023-08-09 07:57 | A.OFFVIS_ITS ---
Intake VS Expanded 08/09/23 07:57 BP 122/59 L Blood Pressure Location Rt brachial Blood Pressure Position Sitting Pulse 83 Pulse Source Pulse Oximeter Temp 96.5 F L Temperature Source Tympanic Pulse Oximetry 96 Oxygen Delivery Method Room Air Height 5 ft 1 in Weight 187 lb 12.8 oz BMI 35.5 Body Fat % 47.1 Body Fat Mass 88.4 Fat Free Mass 99.2 Visceral Fat Rating 13.0 Body Water % 37.5 Body Water Mass 88.4 Muscle Mass/Score 94.2 Basal Metabolic Rate/Score 1,409 Intake Visit Reasons: F/U SWL Allergies No Known Allergies Allergy (Verified 08/09/23 08:00) HPI HPI Comments History of Present Illness Details The patient is a 57-year-old woman who began experiencing obesity and comorbidities later in life after giving to her children. She reports a history of obstructive sleep apnea requiring CPAP, hypertension, hyperlipidemia and had previously been enrolled at [facility]'s surgical weight loss program. Limited records from [facility] indicate h/o cirrhosis & Sickle Cell trait. She reports trying different diets, unsuccessfully and has always experienced weight regain after transitioning back to her regular diet. Today, the patient reports a weight of 181.6 lb/BMI 34.3. She was having difficulty with the current diet due to living with her daughter, but notes she is living with her son and her diet is improved. Televisit to [phone] was performed today. Pt reports 10 lb weight gain since she was last seen in the office and intermittent, inconsistent exercise. She is trying to follow the meal plan recommended but notes difficulty. Patient expressed concerns regarding finances of purchasing exercise equipment. The patient has required iron therapy due to ongoing anemia from unclear etio logy. Colonoscopy record from [facility] indicates a history of cirrhosis and follow-up with colonoscopy was recommended in 10 years. Unfortunately, I do not have all of the [facility] records on her anemia workup. At this time, the patient notes that due to family/life stressors she is trying to follow her diet but is not regularly exercising. Previously, her extent of exercise includes walking around the block occasionally. She was congratulated on her interval weight loss since last appointment with me. I was able to obtain hematology notes from Dianna Fisher NP dated 03/07/23 & Robin George MD from 05/03/23 from Hematology at [facility]. I explained to the patient that the February note indicated the patient may not follow through with bariatric surgery if it would make her anemia worse; Dr. George's note from 05/03/2023 indicates that the patient is likely at risk, but up to a 3 fold worsening of anemia can occur after bariatric surgery. The possible need for ongoing supplementation and possible iron infusion was discussed with the patient. She requested some time to consider this and is unsure whether she should have surgery. She is in agreement to follow-up with me in 1 month and will see Clary Dietz PA-C net week. Patient transferred her care from [facility] and entered the surgical weight loss program May, with a weight of 199 lb/BMI 37.7. During her workup, she was noted to have H pylori in addition to vitamin-A and vitamin-D deficiency. ROMA 1 ESS 10 GERD 1 QOL 106 Pre op work up completed as follows: SWL classes -? 05/02 appts - 08/01 - rescheduled to 08/24 , now initial appt is on , cleared? ? ? RD appts? - 07/27, seen twice, recommends more time in program, now cleared H pylori - negative Labs - anemia, Vit A and D deficiency, elevated TSH and hypercholesteremia CXR, ECG - both normal UGI - ordered on October 03, done 01/03 - moderate reflux, no HH ULS - done at [facility], records reviewed and scanned into chart, steatosis only. Liver elastography done Oct 2022 - steatosis only. [facility] Surgical History Hx of section Family History Mother High cholesterol Father No problems noted. Social History Alcohol intake: never Patient Tobacco Use Status: Never used Tobacco Physical Exam Vital Signs: Last Vital Signs Temp 96.5 F L 08/09/23 07:57 Pulse 83 08/09/23 07:57 BP 122/59 L 08/09/23 07:57 Pulse Ox 96 08/09/23 07:57 Oxygen Delivery Method Room Air 08/09/23 07:57 BMI result Body Mass Index 35.5 televisit Results Reviewed Results Reviewed: Repeat urease breath test is negative Labs from 05/25/2023 Slight anemia at Hb 10.7 noted; white blood cell count 6.7, platelet count 252K Chemistries 06/27/2022 Vitamin-A and vitamin-D deficiency is noted Liver function tests show AST elevated at 40, ALT elevated at 47 Hemoglobin A1c 4.9 Patient's H pylori was positive on 07/26/2022 Retest H pylori negative on 08/15/2022 Diagnostic imaging UGI: no HH, Moderate GERD Abd U/S: NAFLD & hepatic fibrosis CXR: NAD Assessment & Plan Assessment & Plan (1) Obesity: Code(s): E66.9 - Obesity, unspecified (2) HTN (hypertension), benign: Code(s): I10 - Essential (primary) hypertension (3) Hyperlipidemia: Code(s): E78.5 - Hyperlipidemia, unspecified (4) Hypothyroidism (acquired): Code(s): E03.9 - Hypothyroidism, unspecified (5) Steatosis, liver: Code(s): K76.0 - Fatty (change of) liver, not elsewhere classified (6) Obstructive sleep apnea: Comment: uses CPAP nightly Code(s): G47.33 - Obstructive sleep apnea (adult) (pediatric) (7) Anemia: Code(s): D64.9 - Anemia, unspecified (8) Vitamin A deficiency: Code(s): E50.9 - Vitamin A deficiency, unspecified (9) Vitamin D deficiency: Code(s): E55.9 - Vitamin D deficiency, unspecified (10) Major depressive disorder, recurrent, mild: Code(s): F33.0 - Major depressive disorder, recurrent, mild (11) H. pylori infection: Code(s): A04.8 - Other specified bacterial intestinal infections (12) Sickle cell anemia: Code(s): D57.1 - Sickle-cell disease without crisis Plan The patient voiced concerns regarding her weight gain, and in conversation with her, it is not clear that she is consistently exercising. She is not tracking calories. During review of her meal plan, she noted she has trying to follow it but stated that she is not sure why she is gaining weight. We discussed her anemia and the fact that it could be worse by bariatric surgery. She remains interested in trying to commit to weight loss and qualifying for surgery. She requested an office visit in August which will be done with Clary Dietz PA-C. The importance of following the meal plan and tracking calories burned with exercise was reviewed, however I am not clear that the patient understands. Telehealth Telehealth Location of provider rendering services: practice address Location of patient: address on file Patient Identification confirmed using: Name, : Yes Telehealth method: voice only Patient verbally consented to treatment: Yes Patient verbally consented to billing insurance company: Yes Minutes spent on Phone/Video with Pt.: 18 Coding Level of Care Code Tele Est Pt Level 3 (70245) Diagnoses Obesity E66.9 HTN (hypertension), benign I10 Hyperlipidemia E78.5 Hypothyroidism (acquired) E03.9 Steatosis, liver K76.0 Obstructive sleep apnea G47.33 Anemia D64.9 Vitamin A deficiency E50.9 Vitamin D deficiency E55.9 Major depressive disorder, recurrent, mild F33.0 H. pylori infection A04.8 Sickle cell anemia D57.1
== END 2023-08-09 12:58 | disposition home or self-care (01) ==
LOC: HO.HBS 07:57
PROVIDERS: Visit Provider Surgery
DX: E66.9 Obesity, unspecified (principal); I10 Essential (primary) hypertension; E78.5 Hyperlipidemia, unspecified; E03.9 Hypothyroidism, unspecified; K76.0 Fatty (change of) liver, not elsewhere classified; G47.33 Obstructive sleep apnea (adult) (pediatric); D64.9 Anemia, unspecified; E50.9 Vitamin A deficiency, unspecified; E55.9 Vitamin D deficiency, unspecified; F33.0 Major depressive disorder, recurrent, mild; A04.8 Other specified bacterial intestinal infections; D57.1 Sickle-cell disease without crisis
CPT/HCPCS: 99213

== ENCOUNTER → 2023-08-09 07:57 | Outpatient (BNVA) | payer OTHER, SELFPAY | PROVIDERS: Visit Provider Surgery ==

== ENCOUNTER → 2023-12-11 11:01 | Outpatient (BNVA) | payer OTHER, SELFPAY | PROVIDERS: Visit Provider Physician Assistant | DX: E66.9 Obesity, unspecified (principal); Z68.35 Body mass index [BMI] 35.0-35.9, adult | CPT/HCPCS: 99212 ==

== ENCOUNTER 2023-12-11 11:02 | Outpatient (AMB) | payer OTHER, SELFPAY ==
--- NOTE | 2023-12-11 11:06 | A.OFFVIS_ITS ---
Intake VS Expanded 12/11/23 11:13 BP 112/57 L Blood Pressure Location Rt brachial Blood Pressure Position Sitting Pulse 86 Pulse Source Pulse Oximeter Temp 95.3 F L Pulse Oximetry 96 Oxygen Delivery Method Room Air Height 5 ft 1 in Weight 188 lb 12.8 oz BMI 35.7 Body Fat % 47.0 Body Fat Mass 88.6 Fat Free Mass 100.0 Visceral Fat Rating 13.0 Body Water % 37.6 Body Water Mass 71.0 Muscle Mass/Score 95.0 Basal Metabolic Rate/Score 1,420 Intake Visit Reasons: (OV) F/U SWL Allergies No Known Allergies Allergy (Verified 12/11/23 11:09) HPI HPI Comments History of Present Illness Details 58 yo woman who started our SWL program at 201.8 lbs and lowest weight was 178 lbs, she had surgical consultation with Dr Esposito and due to her chronic anemia was asked to have hematology follow up before bariatric surgery. All pre operative work up has been completed. Pt was last seen by me June 2023, then by Dr Esposito 08/09/23 and at that time she was not following our meal or exercise plans anymore and was still considering bariatric surgery. She was supposed to follow up with me in August. After regain her TBWL is now 13 lbs or 6.4%. She says she saw her artificial breeding distributor (does not know name) in October and had repeat CBC at [facility]. She states that they told her everything is OK and she could have bariatric surgery. Patients wants to continue with SWL. Meal plan: stopped for one month. Restarted 2 weeks ago. 11 am - Visual IQ shake- protein 16 gra ms and 325 calories. 2 pm - 2 eggs with 2 slices wheat bread dry.water 4 pm - - snack bar doesnt' know name, p rotein or calories. 6pm - salad with chicken breast and singleton s, water 9pm - yogurt (does not know brand or nut rition) before bed. Exercise - none PFSH Surgical History Hx of section Family History Mother High cholesterol Father No problems noted. Social History Alcohol intake: never Patient Tobacco Use Status: Never used Tobacco Assessment & Plan Assessment & Plan (1) Obesity: Code(s): E66.9 - Obesity, unspecified Plan: Weight gain pre op. Not sure if she is an appropriate candidate fro bariatric surgery - may switch to MWL as needed. 1, Need hematology note and CBC result from [facility]. Anselmo in obtaining these. 2 Needs to redo the SWL claseses -does not know how to read nutrition labels or buy appropriate products 3. Meal plan: 8am - powdered 30 gram shake with water 12 pm- same shake 3pm - bar from our list 6pm - 4 oz (8 forks) each protein and vegetable 4. Exercise - restart LS videos 2 miles - 4d/week Next appt with Kristy in [address] Esposito returns. Patient is obese and is not considered stable at this time. I spent 30 minutes in total with patient reviewing/updating records, examining the patient and counseling the patient on weight management as detailed above. Coding Level of Care Code Est Pt Level 4 (16064) Diagnoses Obesity E66.9
[2023-12-11 11:13] VITALS: BP 112/57; PULSE 86; TEMP 35.2; O2SAT 96; BMI 35.7
== END 2023-12-11 11:42 | disposition home or self-care (01) ==
PROVIDERS: Visit Provider Physician Assistant
DX: E66.9 Obesity, unspecified (principal); Z68.35 Body mass index [BMI] 35.0-35.9, adult
CPT/HCPCS: 99214

== ENCOUNTER 2024-02-01 11:21 | Outpatient (AMB) | payer OTHER, SELFPAY ==
--- NOTE | 2024-02-01 11:25 | MHC.OFFVISWM ---
VS Expanded 02/01/24 11:32 BP 119/59 L Blood Pressure Location Rt brachial Blood Pressure Position Sitting Pulse 98 Pulse Source Pulse Oximeter Temp 96.9 F Temperature Source Temporal Artery Scan Pulse Oximetry 95 Oxygen Delivery Method Room Air Height 5 ft 1 in Weight 192 lb 6.4 oz BMI 36.3 Body Fat % 47.9 Body Fat Mass 92.2 Fat Free Mass 100.0 Visceral Fat Rating 14.0 Body Water % 36.9 Body Water Mass 71.0 Muscle Mass/Score 95 Basal Metabolic Rate/Score 1,426 Intake Visit Reasons: (OV) f/u SWL Allergies No Known Allergies Allergy (Verified 02/01/24 11:28) Medication List - Last Reconciled 02/01/24 by JESSE Le ascorbic acid (vitamin C) 500 mg PO BEDTIME aspirin 81 mg PO DAILY B complex-vitamin C-folic acid 400 mcg ER 1 tab PO DAILY bupropion HCl XL 150 mg PO DAILY cholecalciferol (vitamin D3) 25 mcg PO DAILY docusate sodium (Colace) 100 mg PO BID ferrous sulfate 325 mg PO DAILY fluoxetine 40 mg PO DAILY levothyroxine 300 mcg PO DAILY topiramate 25 mg PO QPM HPI Comments Details: 58 yo woman who started our SWL program at 201.8 lbs and lowest weight was 178 lbs, she had surgical consultation with Dr Esposito and due to her chronic anemia was asked to have hematology follow up before bariatric surgery. All pre operative work up has been completed. Finished SWL classes. After regain her TBWL is now 8.6 lbs or 4.7%. Gained 3.6lbs since last OV. Pt reports I'm going through a lot right now. Had some family deaths, brother was diagnosed with cancer. She says she saw her cooker pie filling (does not know name) in October and had repeat CBC at [facility]. She states that they told her everything is OK and she could have bariatric surgery. Patients wants to continue with SWL. Meal plan: 8am- powdered 30 gram shake with water 12 pm- same shake 3pm- bar from our list 6pm- 4 oz (8 forks) each protein and vegetable Exercise- restart LS videos 2 miles - 4d/week sometimes does the videos PFSH Surgical History Hx of section Family History Mother High cholesterol Father No problems noted. Social History Alcohol intake: never Patient Tobacco Use Status: Never used Tobacco Physical Exam Vital Signs: Last Vital Signs Temp 96.9 F 02/01/24 11:32 Pulse 98 02/01/24 11:32 BP 119/59 L 02/01/24 11:32 Pulse Ox 95 02/01/24 11:32 Oxygen Delivery Method Room Air 02/01/24 11:32 BMI result Body Mass Index 36.3 Assessment & Plan Assessment & Plan (1) Obesity: Code(s): E66.9 - Obesity, unspecified Category: Medical (2) HTN (hypertension), benign: Code(s): I10 - Essential (primary) hypertension Category: Medical (3) Hyperlipidemia: Code(s): E78.5 - Hyperlipidemia, unspecified Category: Medical (4) Hypothyroidism (acquired): Code(s): E03.9 - Hypothyroidism, unspecified Category: Medical (5) Steatosis, liver: Code(s): K76.0 - Fatty (change of) liver, not elsewhere classified Category: Medical (6) Obstructive sleep apnea: Comment: uses CPAP nightly Code(s): G47.33 - Obstructive sleep apnea (adult) (pediatric) Category: Medical (7) Anemia: Code(s): D64.9 - Anemia, unspecified Category: Medical (8) Vitamin A deficiency: Code(s): E50.9 - Vitamin A deficiency, unspecified Category: Medical (9) Vitamin D deficiency: Code(s): E55.9 - Vitamin D deficiency, unspecified Category: Medical (10) Major depressive disorder, recurrent, mild: Code(s): F33.0 - Major depressive disorder, recurrent, mild Category: Medical (11) H. pylori infection: Code(s): A04.8 - Other specified bacterial intestinal infections Category: Medical (12) Sickle cell anemia: Code(s): D57.1 - Sickle-cell disease without crisis Category: Medical Plan Pt to focus on meal plan and exercise, finances sometimes an issue, she will text me if she finds less expensive protein powder or bar options and we can adjust meal plan. I recommended Pure protein bars at [employer] as an option. We discussed the importance of adherence to meal plan after surgery as she will not have the option to cook/eat whatever I have at the house. RTC 1 month, texted pt and encouraged her to reach out between visits with any questions. Patient is obese and is not considered stable at this time. I spent a total of 30 minutes reviewing/updating records, examining the patient and counseling the patient on weight management as detailed above.
[2024-02-01 11:32] VITALS: BP 119/59; PULSE 98; TEMP 36.1; O2SAT 95; BMI 36.3
== END 2024-02-01 12:00 | disposition home or self-care (01) ==
PROVIDERS: Visit Provider Physician Assistant Surgical
DX: E66.9 Obesity, unspecified (principal); Z68.36 Body mass index [BMI] 36.0-36.9, adult; D57.1 Sickle-cell disease without crisis; A04.8 Other specified bacterial intestinal infections
CPT/HCPCS: 99214

== ENCOUNTER → 2024-02-01 11:21 | Outpatient (BNVA) | payer OTHER, SELFPAY | PROVIDERS: Visit Provider Physician Assistant Surgical | DX: E66.9 Obesity, unspecified (principal); E78.5 Hyperlipidemia, unspecified; I10 Essential (primary) hypertension; E03.9 Hypothyroidism, unspecified; K76.0 Fatty (change of) liver, not elsewhere classified; G47.33 Obstructive sleep apnea (adult) (pediatric); D64.9 Anemia, unspecified; E50.9 Vitamin A deficiency, unspecified; E55.9 Vitamin D deficiency, unspecified; F33.0 Major depressive disorder, recurrent, mild; A04.8 Other specified bacterial intestinal infections; D57.1 Sickle-cell disease without crisis; Z68.36 Body mass index [BMI] 36.0-36.9, adult | CPT/HCPCS: 99212 ==

== ENCOUNTER 2024-03-07 13:00 | Outpatient (AMB) | payer OTHER, SELFPAY ==
--- NOTE | 2024-03-07 13:03 | MHC.OFFVISWM ---
VS Expanded 03/07/24 13:05 Height 5 ft 1 in Weight 190 lb BMI 35.9 Intake Visit Reasons: (TV) F/U SWL Allergies No Known Allergies Allergy (Verified 02/01/24 11:28) Medication List - Last Reconciled 03/07/24 by JESSE Le ascorbic acid (vitamin C) 500 mg PO BEDTIME aspirin 81 mg PO DAILY B complex-vitamin C-folic acid 400 mcg ER 1 tab PO DAILY bupropion HCl XL 150 mg PO DAILY cholecalciferol (vitamin D3) 25 mcg PO DAILY docusate sodium (Colace) 100 mg PO BID ferrous sulfate 325 mg PO DAILY fluoxetine 40 mg PO DAILY levothyroxine 300 mcg PO DAILY topiramate 25 mg PO QPM HPI Comments Details: 58 yo woman who started our SWL program at 201.8 lbs and lowest weight was 178 lbs, she had surgical consultation with Dr Esposito and due to her chronic anemia was asked to have hematology follow up before bariatric surgery. All pre operative work up has been completed. Finished SWL classes. After regain her TBWL is now 9.8 lbs or 4.9%. Lost 2lbs since last OV. She previously reported she saw her supervisor fabrication and assembly (does not know name) in October and had repeat CBC at [facility]. She states that they told her everything is OK and she could have bariatric surgery. Patients wants to continue with SWL. Meal plan: 8am- powdered Premier 1 scoop with 8oz UAM 12 pm- same shake 3pm- bar (last visit I suggested Pure as pt was looking for something more affordable)- pt using [employer] which has lower protein 6pm- 4 oz (8 forks) each protein and vegetable takes a shake at 9am and 2pm, 1 scoop each; 4pm takes a [employer] bar, 6pm has dinner- veg/salad, beans, sometimes will have pork chop or shrimp Exercise- videos 30 minutes - reports doing 5x/week PFSH Surgical History Hx of section Family History Mother High cholesterol Father No problems noted. Social History Alcohol intake: never Patient Tobacco Use Status: Never used Tobacco Telehealth Telehealth Telehealth Platform: Telephone Location of provider rendering services: practice address Location of patient: address on file Patient Identification confirmed using: Name, : Yes Telehealth method: voice only Patient verbally consented to treatment: Yes Patient verbally consented to billing insurance company: Yes Patient informed of any privacy concerns related to visit: Yes Minutes spent on Phone/Video with Pt.: 15 Assessment & Plan Assessment & Plan (1) Obesity: Code(s): E66.9 - Obesity, unspecified Category: Medical (2) HTN (hypertension), benign: Code(s): I10 - Essential (primary) hypertension Category: Medical (3) Hyperlipidemia: Code(s): E78.5 - Hyperlipidemia, unspecified Category: Medical (4) Hypothyroidism (acquired): Code(s): E03.9 - Hypothyroidism, unspecified Category: Medical (5) Steatosis, liver: Code(s): K76.0 - Fatty (change of) liver, not elsewhere classified Category: Medical (6) Obstructive sleep apnea: Comment: uses CPAP nightly Code(s): G47.33 - Obstructive sleep apnea (adult) (pediatric) Category: Medical (7) Anemia: Code(s): D64.9 - Anemia, unspecified Category: Medical (8) Vitamin A deficiency: Code(s): E50.9 - Vitamin A deficiency, unspecified Category: Medical (9) Vitamin D deficiency: Code(s): E55.9 - Vitamin D deficiency, unspecified Category: Medical (10) Major depressive disorder, recurrent, mild: Code(s): F33.0 - Major depressive disorder, recurrent, mild Category: Medical (11) Sickle cell anemia: Code(s): D57.1 - Sickle-cell disease without crisis Category: Medical Plan Pt likely not getting the appropriate amount of protein, using wrong bars, not getting adequate protein at dinner. Texted her the following plan: 9am- powdered Premier 1 scoop with 8oz UAM 12 pm- same shake 3pm- protein bar with 18-20g protein, recommended Pure- sent photo of protein bar options, circled Pure option 6pm- 4 oz (8 forks) each protein and vegetable RTC 1 month. Encouraged her to reach out between visits with any questions. Patient is obese and is not considered stable at this time. I spent a total of 30 minutes reviewing/updating records, examining the patient and counseling the patient on weight management as detailed above.
[2024-03-07 13:05] VITALS: BMI 35.9
== END 2024-03-07 13:30 | disposition home or self-care (01) ==
LOC: HO.HBS 13:40
PROVIDERS: Visit Provider Physician Assistant Surgical
DX: E66.9 Obesity, unspecified (principal); I10 Essential (primary) hypertension; E78.5 Hyperlipidemia, unspecified; E03.9 Hypothyroidism, unspecified; K76.0 Fatty (change of) liver, not elsewhere classified; G47.33 Obstructive sleep apnea (adult) (pediatric); D64.9 Anemia, unspecified; E50.9 Vitamin A deficiency, unspecified; E55.9 Vitamin D deficiency, unspecified; F33.0 Major depressive disorder, recurrent, mild; D57.1 Sickle-cell disease without crisis
CPT/HCPCS: 99214

== ENCOUNTER → 2024-03-07 13:00 | Outpatient (BNVA) | payer OTHER, SELFPAY | PROVIDERS: Visit Provider Physician Assistant Surgical | DX: E66.9 Obesity, unspecified (principal); I10 Essential (primary) hypertension; E78.5 Hyperlipidemia, unspecified; E03.9 Hypothyroidism, unspecified; K76.0 Fatty (change of) liver, not elsewhere classified; G47.33 Obstructive sleep apnea (adult) (pediatric); D64.9 Anemia, unspecified; E50.9 Vitamin A deficiency, unspecified; E55.9 Vitamin D deficiency, unspecified; F33.0 Major depressive disorder, recurrent, mild; D57.1 Sickle-cell disease without crisis ==

== ENCOUNTER 2024-04-09 15:00 | Outpatient (AMB) | payer OTHER, SELFPAY ==
--- NOTE | 2024-04-09 15:01 | MHC.OFFVISWM ---
VS Expanded 04/09/24 15:07 BP 129/87 Blood Pressure Location Rt brachial Blood Pressure Position Sitting Pulse 87 Pulse Source Pulse Oximeter Temp 96.1 F L Temperature Source Tympanic Pulse Oximetry 96 Oxygen Delivery Method Room Air Height 5 ft 1 in Weight 190 lb 12.8 oz BMI 36.0 Body Fat % 47.2 Body Fat Mass 90.0 Fat Free Mass 100.8 Visceral Fat Rating 13.0 Body Water % 47.2 Body Water Mass 71.4 Muscle Mass/Score 95.6 Basal Metabolic Rate/Score 1,430 Intake Visit Reasons: F/U MWL Allergies No Known Allergies Allergy (Verified 04/09/24 15:02) Medication List - Last Reconciled 04/09/24 by JESSE Le ascorbic acid (vitamin C) 500 mg PO BEDTIME aspirin 81 mg PO DAILY B complex-vitamin C-folic acid 400 mcg ER 1 tab PO DAILY bupropion HCl XL 150 mg PO DAILY cholecalciferol (vitamin D3) 25 mcg PO DAILY docusate sodium (Colace) 100 mg PO BID ferrous sulfate 325 mg PO DAILY fluoxetine 40 mg PO DAILY levothyroxine 300 mcg PO DAILY topiramate 25 mg PO QPM HPI Comments Details: 58 yo woman who started our SWL program at 201.8 lbs and lowest weight was 178 lbs, she had surgical consultation with Dr Esposito and due to her chronic anemia was asked to have hematology follow up before bariatric surgery. All pre operative work up has been completed. Finished SWL classes. After regain her TBWL is now 9 lbs with gain of 0.8lbs since last OV. She previously reported she saw her negative cleaner (does not know name) in October and had repeat CBC at [facility]. She states that they told her everything is OK and she could have bariatric surgery. Patients wants to continue with SWL. Meal plan: 9am- powdered Premier 1 scoop with 8oz UAM 12 pm- same shake 3pm- protein bar with 18-20g protein, recommended Pure 6pm- 4 oz (8 forks) each protein and vegetable Pt reports she has struggled to get the appropriate items for her meal plan. She has the shake powder but has not had the finances to get bars or some meat/veg items. Exercise- LS videos 30 minutes - reports doing 5x/week was exercising less recently [facility] Surgical History Hx of section Family History Mother High cholesterol Father No problems noted. Social History Alcohol intake: never Patient Tobacco Use Status: Never used Tobacco Assessment & Plan Assessment & Plan (1) Obesity: Code(s): E66.9 - Obesity, unspecified Category: Medical (2) HTN (hypertension), benign: Code(s): I10 - Essential (primary) hypertension Category: Medical (3) Hyperlipidemia: Code(s): E78.5 - Hyperlipidemia, unspecified Category: Medical (4) Steatosis, liver: Code(s): K76.0 - Fatty (change of) liver, not elsewhere classified Category: Medical (5) Obstructive sleep apnea: Comment: uses CPAP nightly Code(s): G47.33 - Obstructive sleep apnea (adult) (pediatric) Category: Medical Plan Meal plan adjusted, will use primarily protein powder rather than bars: 9-11am Premier shake 2 scoop 12-2pm Premier shake 1 scoop 3-5pm Premier shake 1 scoop 6pm meal with ~20g protein (can be 3oz meat or 3 eggs); can have veg/salad but does not need to, focus on protein Continue home exercise videos. RTC 1 month. I spent a total of 30 minutes reviewing/updating records, examining the patient and counseling the patient on weight management as detailed above.
[2024-04-09 15:07] VITALS: BP 129/87; PULSE 87; TEMP 35.6; O2SAT 96; BMI 36.0
== END 2024-04-09 15:24 | disposition home or self-care (01) ==
PROVIDERS: Visit Provider Physician Assistant Surgical
DX: E66.9 Obesity, unspecified (principal); Z68.36 Body mass index [BMI] 36.0-36.9, adult; E78.5 Hyperlipidemia, unspecified; I10 Essential (primary) hypertension
CPT/HCPCS: 99214

== ENCOUNTER → 2024-04-09 15:00 | Outpatient (BNVA) | payer OTHER, SELFPAY | PROVIDERS: Visit Provider Physician Assistant Surgical | DX: E66.9 Obesity, unspecified (principal); I10 Essential (primary) hypertension; E78.5 Hyperlipidemia, unspecified; K76.0 Fatty (change of) liver, not elsewhere classified; G47.33 Obstructive sleep apnea (adult) (pediatric); Z71.3 Dietary counseling and surveillance; Z68.36 Body mass index [BMI] 36.0-36.9, adult | CPT/HCPCS: 99212 ==

== ENCOUNTER 2024-06-19 09:43 | Outpatient (AMB) | payer OTHER, SELFPAY ==
--- NOTE | 2024-06-19 10:04 | MHC.OFFVISWM ---
VS Expanded 06/19/24 10:10 Height 5 ft 1 in Weight 187 lb BMI 35.3 Intake Visit Reasons: TV F/U SWL Allergies No Known Allergies Allergy (Verified 04/09/24 15:02) Medication List - Last Reconciled 06/19/24 by JESSE Le ascorbic acid (vitamin C) 500 mg PO BEDTIME aspirin 81 mg PO DAILY B complex-vitamin C-folic acid 400 mcg ER 1 tab PO DAILY bupropion HCl XL 150 mg PO DAILY cholecalciferol (vitamin D3) 25 mcg PO DAILY docusate sodium (Colace) 100 mg PO BID ferrous sulfate 325 mg PO DAILY fluoxetine 40 mg PO DAILY levothyroxine 300 mcg PO DAILY topiramate 25 mg PO QPM HPI Comments Details: 58 yo woman who started our SWL program at 201.8 lbs and lowest weight was 178 lbs, she had surgical consultation with Dr Esposito and due to her chronic anemia was asked to have hematology follow up before bariatric surgery. All pre operative work up has been completed. Finished SWL classes. After regain her TBWL is now 14.8 lbs with loss of 3.8 since last OV (190.8), 7.33% TBWL. She previously reported she saw her poultry farm manager (does not know name) in October and had repeat CBC at [facility]. She states that they told her everything is OK and she could have bariatric surgery. Patients wants to continue with SWL. Meal plan: 9-11am Premier shake 2 scoop 12-2pm Premier shake 1 scoop 3-5pm Premier shake 1 scoop 6pm meal with ~20g protein (can be 3oz meat or 3 eggs); can have veg/salad but does not need to, focus on protein adjusted at last visit due to finances and having difficulty getting bars I have kids in the house, they have their snacks, it's hard Exercise- videos 30 minutes - reports doing 5x/week was exercising less recently- was busy with her mom helping after surgery, who lives in [facility] Surgical History Hx of section Family History Mother High cholesterol Father No problems noted. Social History Alcohol intake: never Patient Tobacco Use Status: Never used Tobacco Telehealth Telehealth Telehealth Platform: Telephone Location of provider rendering services: other Location of patient: address on file Patient Identification confirmed using: Name, : Yes Telehealth method: voice only Patient verbally consented to treatment: Yes Patient verbally consented to billing insurance company: Yes Patient informed of any privacy concerns related to visit: Yes Minutes spent on Phone/Video with Pt.: 15 Assessment & Plan Assessment & Plan (1) Obesity: Code(s): E66.9 - Obesity, unspecified Category: Medical Plan Pt likes new meal plan. Increase exercise. Will forward me email from hematology that she has received, clearing her for surgery. Will discuss whether any workup needs to be repeated with Dr. Shah, once pt gets closer to 10% TBWL. RTC 6-8 weeks. I spent a total of 30 minutes reviewing/updating records, examining the patient and counseling the patient on weight management as detailed above.
[2024-06-19 10:10] VITALS: BMI 35.3
== END 2024-06-19 10:23 | disposition home or self-care (01) ==
LOC: HO.HBS 09:43
PROVIDERS: Visit Provider Physician Assistant Surgical
DX: E66.9 Obesity, unspecified (principal); Z68.35 Body mass index [BMI] 35.0-35.9, adult
CPT/HCPCS: 99214; G2211

== ENCOUNTER → 2024-06-19 09:43 | Outpatient (BNVA) | payer OTHER, SELFPAY | PROVIDERS: Visit Provider Physician Assistant Surgical ==

== ENCOUNTER 2024-08-16 08:18 | Outpatient (AMB) | payer OTHER, SELFPAY ==
--- NOTE | 2024-08-16 11:20 | A.OFFVIS_ITS ---
VS Expanded 08/16/24 11:22 Height 5 ft 1 in Weight 196 lb BMI 37.0 Intake Visit Reasons: TV Follow Up SWL/Consult Kristy Allergies No Known Allergies Allergy (Verified 08/16/24 11:23) Medication List - Last Reconciled 08/16/24 by Moe Paris MD ascorbic acid (vitamin C) 500 mg PO BEDTIME aspirin 81 mg PO DAILY atorvastatin 40 mg PO DAILY B complex-vitamin C-folic acid 400 mcg ER 1 tab PO DAILY bupropion HCl XL 150 mg PO DAILY cholecalciferol (vitamin D3) 25 mcg PO DAILY docusate sodium (Colace) 100 mg PO BID ferrous sulfate 325 mg PO DAILY fluoxetine 40 mg PO DAILY levothyroxine 300 mcg PO DAILY HPI HPI TV Follow Up SWL/Consult Kristy: Details: Start time: 11am, End time: 11.55am ?I spent 50 minutes speaking with the patient on the phone plus an additional 5 minutes reviewing and updating records for a total of 55 minutes HPI Comments Details: Wakes up: 8am, sleeps: 10pm Is using the Premier powder shake [facility] Medical History (Updated 08/16/24 @ 11:45 by Moe Paris MD) Back pain Depression Obstructive sleep apnea on CPAP Hypothyroidism BMI 38.0-38.9,adult Surgical History Hx of section Family History Mother High cholesterol Father No problems noted. Social History Alcohol intake: never Patient Tobacco Use Status: Never used Tobacco Telehealth Telehealth Telehealth Platform: Telephone Location of provider rendering services: practice address Location of patient: address on file Patient Identification confirmed using: Name, : Yes Telehealth method: voice only Patient verbally consented to treatment: Yes Patient verbally consented to billing insurance company: Yes Patient informed of any privacy concerns related to visit: Yes Minutes spent on Phone/Video with Pt.: 55 Assessment & Plan Assessment & Plan (1) Obesity: Code(s): E66.9 - Obesity, unspecified Category: Medical Qualifiers: Obesity type: due to excess calories Obesity classification: adult class 2 (BMI 35 - 39.9) Serious obesity comorbidity presence: with serious comorbidity Body mass index: BMI 38.0-38.9 Qualified Code(s): E66.812 - Obesity, class 2; E66.01 - Morbid (severe) obesity due to excess calories; Z68.38 - Body mass index [BMI] 38.0-38.9, adult Plan 1.? Plan for lap sleeve gastrectomy. If diaphragmatic or ventral hernias are present at time of surgery, these will be repaired laparoscopically as well. Risks and complications include possible conversion to an open procedure, anastomotic leak, bleeding requiring transfusion, small bowel obstruction, , DVT and pulmonary embolism, cardiac, or pulmonary complications, as shelter complications such as anastomotic ulcer, insufficient weight loss and vitamin deficiencies. I emphasized the importance of close follow-up, adherence to instructions and good communication. 2. Nutritional counseling. Start with one Premier powdered protein shake (HALF scoop in 8oz low fat unsweetened almond milk each) at 9am-11am, one Celebrate protein bar ( buy at [facility]) at 12pm-2pm, another Premier shake (HALF scoop in 8oz almond milk) at 3pm-5pm, dinner at 6pm (8 forks of protein and 8 forks of salad/vegetables) AND one more protein bar after dinner at 8pm-1 0pm. So you do 2 protein shakes, 2 protein bars and one meal per day. Meal to include lean meat (beef, fish, pork, turkey, chicken), or luxembourgish yogurt, or egg whites, or beans with a salad with olive oil and fruits (berries, pears, apples, kiwi). Avoid salt, breads, potatoes, rice, pasta, desserts. 3. Each shake would be drunk slowly, like coffee in a period of 2 hours. 4. Cut each bar in 4 pieces and eat each piece in 30min ?to make each bar last 2 hours. 5. I emphasized the importance of measuring accurately the food portion and measure it when serving the food in plate 6. The meal portions include 8 full-size forks of meat and 8 full-size forks of salad. You always eat the meat portion but you can replace up to 4 forks for salad/vegetables with rice, potatoes or pasta, or a fruit ?if you like. The less you do it the better weight loss will be. 7. One full-size fork is what it can be scooped on the fork without falling aside and not what can be bit with the fork. Use regular forks like those you find in a typical restaurant. 8.? Please send me weight measurements as soon as possible and then once a week. Always include your diet and exercise plan. 9. Start walking outside daily, tracking calories with a goal of 300 calories per day, daily. Goal is to burn 2000 calories per week on exercise, which means either 300 calories daily, or 400 calories 5 days per week, or 500 calories 4 days per week, or 650 calories 3 days per week. 10. The best choice would be to purchase a stationary bike at home that can track calories. Let me know if you do so I can give you an exercise plan. 11.?Goal is to lose at least 1.5-2lbs per week 12. Goal to lose 10% of your weight before surgery, which is about 20lbs. Ultimate weight goal: 180lbs before surgery 13. Please follow the diet plan exactly without any change. If you don't like something about the plan or you feel hungry you need to communicate with me so I can help you revise the plan. You should not change the plan yourself.
[2024-08-16 11:22] VITALS: BMI 37.0
== END 2024-08-16 11:57 | disposition home or self-care (01) ==
LOC: HO.HBS 08:18
PROVIDERS: Visit Provider Surgery
DX: E66.01 Morbid (severe) obesity due to excess calories (principal); E66.812 Obesity, class 2; Z68.38 Body mass index [BMI] 38.0-38.9, adult
CPT/HCPCS: 99215

== ENCOUNTER → 2024-08-19 13:23 | Outpatient (AMB) | payer OTHER, SELFPAY ==
--- NOTE | 2024-08-19 13:15 | A.OFFWM_ITS ---
Intake Intake Visit Reasons: VIDEO Intake *See Comments* Allergies No Known Allergies Allergy (Verified 08/16/24 11:23) [facility] Medical History (Updated 08/16/24 @ 11:45 by Moe Paris MD) Back pain Depression Obstructive sleep apnea on CPAP Hypothyroidism BMI 38.0-38.9,adult Surgical History Hx of section Family History Mother High cholesterol Father No problems noted. Social History Alcohol intake: never Patient Tobacco Use Status: Never used Tobacco Behavioral Health Assessment Weight Management Therapy Therapy Notes Details PT is a 59 years old female, who presents for a visit to complete BH assessment as part of surgical weight loss program. PT had BH assessment back in 08/2022 however she has been on and off the program and is still interested in bariatric surgery. She needs a new assessment now since it's been almost 2 years since last seen by provider at this facility. PT started program in 05/2022 at 201Lbs, with initial goal to lose 20Lbs before surgery. She is currently 196Lbs and reports she is interested in having her surgery due to her health issues triggered by obesity. She would like not to continue using the CPAP machine for sleep apnea and to have overall less back pain. PT is aware she needs to eat healthy, learn to control urges for food and be consistent with exercise. Presenting Concerns Referral Source [facility]-Provider (Dr Shah) PT was seen by Dr Bello 08/16/2024. Reason for referral Completion of behavioral health assessment as part of process for weight-loss surgery. Precipitating Event Obesity. Struggles losing weight . Living Situation Current Living Situation Rent (Section 8.) At risk of losing current housing? No Satisfied with current living situation? No (Looking to move as rent is too expensive. ) Comments PT lives alone. Food/Weight/Diet Expectations of change PT started the program on at 199Lbs, at that time she had to consult with pass worker before moving forward with bariatric surgery. since then she has been on and off attending the program but interested in surgical weight-loss/ on 06/19/2024 she was 197lbs and at most recent visit with Dr Bello she reported to be 196Lbs. PT was expected to lose 20Lbs before bariatric surgery (ultimate weight before surgery: 181Lbs). PT reports she has not maintained a steady weight-loss due to multiple life and financial circumstances impeding her to buy the products or be consistent with exercise and/or meal plan. Current meal plan: 2 protein shakes, 2 protein bars and one meal per day. Exercise plan: Youtube videos. 3-4 days at week about 30 min. PT doesn't have how to keep track of calories. History/Relationship with food PT reports that when she feels stressed she tends to eat sweets Example of meals: Breakfast: Social History Family history and relationship PT is several years ago and has 3 adult children. Mother is alive, father . She has 7 siblings. PT reports she has good family relationships. 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 Developmental history and status None reported. Currently WNL. Social support Children, mother. Community support PCP. Quaker/Spirituality Protestant. Cultural/Ethnic information PT is from [facility]. Moved to the at age 16. PT is bi-lingual. Legal Involvement and History Current or historical involvement with the legal system? None reported. Education Highest grade completed 9th grade. Obtained a certificate in early education. Preferred learning style Written Currently enrolled in educational program? No Interested in further educational program? 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 Employment Employment Status Unemployed Wants help to find employment? No Meaningful activities Music, family time. Financial Situation Describe current financial situation Financial struggles are a major source of stress Financial assistance? Food [place], Contributions from your family/friends and [facility] Service Service? No Mental Health and Addiction Treatment Current/Past substance abuse? No Comments Alcohol: None. Cigarettes/Tobacco: none Cannabis/Edibles: None. Current/Past addictive behavior concerns? No Psychiatric history Couple years ago she was in counseling due to depression and anxiety. PT reports her PCP prescribes her with medication for depression. She takes bupropion 150mg, 1 at day and fluoxetine 40mg, 1 at day. PT reports she started having depression as a teen after moving out of the country she was born. She reports never been depressed for more than 3 consecutive days. She tends to feel depressed every 2-3 months, and it comes in waves and lapse are more than 3 days but less than 14 days at the time for 2 or 3 weeks (not consecutive). When feeling depressed she isolates, cries, doesn't want to talk to people and has no energy. When she is anxious she tends to feel with worry and stressed, this has been happening every couple weeks an can last 3 days. These sensations are triggered by stressful life events. PT denies ever been in crisis or inpatient for mental health. There is no history and/or current concern about SI/Sa and self-harm or other harm. Medical and Physical Health Summary Additional Medical History not covered in history None aditional Sexual History concerns None reported. Physical exam in the last year? Yes Pain Screening Current pain? Yes Pain in the last few months? Yes Comments back pain. Medications Is the patient compliant with medications? Yes Does the patient have Guzman Guardian in place? Not applicable Does the patient use complimentary health approaches? No Trauma/Abuse History History of trauma? No Questionnaires PHQ-9 Over the last 2 weeks, how often have you been bothered by any of the following problems? 1. Little interest or pleasure in doing things: several days 2. Feeling down, depressed, or hopeless: several days 3. Trouble falling or staying asleep, or sleeping too much: several days 4. Feeling tired or having little energy: several days 5. Poor appetite or overeating: not at all 6. Feeling bad about yourself - or that you are a failure or have let yourself or your family down: several days 7. Trouble concentrating on things, such as reading the newspaper or watching television: not at all 8. Moving or speaking so slowly that other people could have noticed. Or the opposite - being so fidgety or restless that you have been moving around a lot more than usual: several days 9. Thoughts that you would be better off or of hurting yourself in some way: not at all Total score: 6 Depression Screening Interpretation: Positive Depression Screening Done: Yes [id number] - PHQ-9 Billing: Yes Source: Developed by Drs. Mateus Stout, Tori Luis, Kvng Montiel and colleagues, with an educational maria m from [employer]. Assessment & Plan Assessment & Plan (1) Depression: Code(s): F32.A - Depression, unspecified Plan PT will be seen again in 3 weeks to complete assessment. She will also need support with habit building and decision making around stress eating. PT also, appeared to be in need to clarification and wuld benefit from written instructions in Maltese. Next roberta: 09/09/2024 at 12pm. Telehealth Telehealth Telehealth Platform: [employer] Location of provider rendering services: practice address Location of patient: address on file Patient Identification confirmed using: Name, : Yes Telehealth method: voice only Patient verbally consented to treatment: Yes Patient verbally consented to billing insurance company: Yes Patient informed of any privacy concerns related to visit: Yes Minutes spent on Phone/Video with Pt.: 75 Coding Level of Care Code New Pt Tele Psy Diag Eval (12769) Patient Type New Diagnoses Depression F32.A Additional Codes PHQ-9 - 28499 - PHQ-9 Billing: Yes ([id number]) Time Spent (min) 75
== END ==
PROVIDERS: Visit Provider Counselor Mental Health
DX: F32.1 Major depressive disorder, single episode, moderate (principal)
CPT/HCPCS: 90791

== ENCOUNTER → 2024-08-19 13:23 | Outpatient (BNVA) | payer OTHER, SELFPAY | PROVIDERS: Visit Provider Counselor Mental Health ==

== ENCOUNTER → 2024-09-06 12:21 | Outpatient (AMB) | payer OTHER, SELFPAY ==
--- NOTE | 2024-09-06 12:15 | MHC.WMTHER ---
Intake Intake Visit Reasons: VIDEO BH F/U Allergies No Known Allergies Allergy (Verified 08/16/24 11:23) [facility] Medical History (Updated 08/16/24 @ 11:45 by Moe Paris MD) Back pain Depression Obstructive sleep apnea on CPAP Hypothyroidism BMI 38.0-38.9,adult Surgical History Hx of section Family History Mother High cholesterol Father No problems noted. Social History Alcohol intake: never Patient Tobacco Use Status: Never used Tobacco Behavioral Health Assessment Weight Management Therapy Therapy Notes Details Patient is a 59-year-old female presenting for a behavioral health (BH) assessment as part of the surgical weight loss program. She previously completed a BH assessment in August 2022 but has had intermittent participation in the program. She remains interested in pursuing bariatric surgery and requires an updated assessment, as it has been nearly two years since her last visit with a BH provider at this facility. The patient re-engaged with the program in May 2022 at 201 lbs, with an initial goal of losing 20 lbs prior to surgery. She currently weighs 196 lbs and is motivated to proceed with surgery due to health issues associated with obesity. Specifically, she wishes to discontinue the use of her CPAP machine for sleep apnea and alleviate back pain. She recognizes the importance of healthy eating, controlling food urges, and maintaining consistency with exercise. The patient reports a history of depression and anxiety, for which she is currently taking prescribed medication from her primary care provider (PCP). She denies any history of mental health crises or inpatient care. There are no current concerns regarding suicidal ideation, self-harm, or harm to others, and substance use. The patient disclosed a history of stress eating but denies it being a significant issue at present. Her Binge Eating Scale (BES) scores suggest a low risk for binge eating behavior, and her PHQ-9 scores indicate no active symptoms of depression. The mental status exam was unremarkable, with no signs of impaired functioning. From a behavioral health perspective, the patient is cleared to proceed with the bariatric surgery process. She will be monitored post-surgery, with follow-up scheduled. However, the patient needs to discuss financial concerns with her provider, particularly regarding the cost of required products and her ability to continue the program if she is unable to purchase them regularly. Presenting Concerns Referral Source [facility]-Provider (Dr Shah) PT was seen by Dr Bello 08/16/2024. Reason for referral Completion of behavioral health assessment as part of process for weight-loss surgery. Precipitating Event Obesity. Struggles losing weight . Living Situation Current Living Situation Rent ([address] At risk of losing current housing? No Satisfied with current living situation? No (Looking to move as rent is too expensive. ) Comments PT lives alone. Food/Weight/Diet Expectations of change PT started the program on at 199Lbs, at that time she had to consult with prepared foods service team member before moving forward with bariatric surgery. since then she has been on and off attending the program but interested in surgical weight-loss/ on 06/19/2024 she was 197lbs and at most recent visit with Dr Bello she reported to be 196Lbs. PT was expected to lose 20Lbs before bariatric surgery (ultimate weight before surgery: 181Lbs). PT reports she has not maintained a steady weight-loss due to multiple life and financial circumstances impeding her to buy the products or be consistent with exercise and/or meal plan. . -Current meal plan: 2 protein shakes, 2 protein bars and one meal per day. - PT reports she is not always following the meal plan due to finances or transportation to come and get bars at the hospital. -Exercise plan: Youtube videos. 3-4 days at week about 30 min. PT doesn't have how to keep track of calories. History/Relationship with food PT reports that when she feels stressed she tends to eat sweets. She likes to drink juice, coffee and soda. PT reports she used to snack on candy/chocolate/cookies during the day and also she believes her thyroid issues makes her gain weight faster. At times she was finding herself eating when not hungry, specially when others were eating around her or offered food. And when skipped breakfast then portions at dinner were bigger or would snack more. . Example of meals: Breakfast: 1 cup of coffee. w/ sugar. Sometimes w/ milk. Lunch: @12 - Hodge sandwich, tuna fish, cereal w/ milk or oatmeal. pm Snack: yogurt. Dinner: style. Rice, beans, meat, salad. pm Snacks: crackers. Beverages: 1 cup of coffee. 1 can of soda at day. 1 glass of juice at day. History/Relationship with weight PT reports she always was skinny in childhood. Never had weight issues. Started gaining weight after pregnancies. PT doesn't remember the last time she was under 150mg. In the last 10 years, the patient's Lowest weight was 190Lbs and highest 20Lbs History/Relationship with dieting Self-diets. P in 2021 changes on eating choices, buying alternative foods like oils, sugars, organic options etc. Binge Eating Do you frequently eat large amounts of food in short periods of time, not feeling physically hungry? Yes Do you feel out of control when you eat a large amount of food in a short period of time? No Do you eat large amounts of food rapidly and typically alone? No Night Eating Do you wake up at least once during the night to eat? No If you wake up in the night, do you find that it is necessary to eat something in order to fall back asleep? No Do you have little or no appetite in the morning and feel very hungry in the evening, often overeating between dinner and when you go to bed? Yes Social History Family history and relationship PT is several years ago and has 3 adult children. Mother is alive, father . She has 7 siblings. PT reports she has good family relationships. 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 Developmental history and status None reported. Currently WNL. Social support Children, mother. Community support PCP. Restorationism/Spirituality Congregational. Cultural/Ethnic information PT is from [place]. [place]oved [place] the [place] at age 16. PT is bi-lingual. Legal Involvement and History Current or historical involvement with the legal system? None reported. Education Highest grade completed 9th grade. Obtained a certificate in early education. Preferred learning style Written Currently enrolled in educational program? No Interested in further educational program? 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 Employment Employment Status Unemployed Wants help to find employment? No Meaningful activities Music, family time. Financial Situation Describe current financial situation Financial struggles are a major source of stress Financial assistance? Food [place], Contributions from your family/friends and [facility] Service Service? No Mental Health and Addiction Treatment Current/Past substance abuse? No Comments Alcohol: None. Cigarettes/Tobacco: none Cannabis/Edibles: None. Current/Past addictive behavior concerns? No Psychiatric history Couple years ago she was in counseling due to depression and anxiety. PT reports her PCP prescribes her with medication for depression. She takes bupropion 150mg, 1 at day and fluoxetine 40mg, 1 at day. PT reports she started having depression as a teen after moving out of the country she was born. She reports never been depressed for more than 3 consecutive days. She tends to feel depressed every 2-3 months, and it comes in waves and lapse are more than 3 days but less than 14 days at the time for 2 or 3 weeks (not consecutive). When feeling depressed she isolates, cries, doesn't want to talk to people and has no energy. When she is anxious she tends to feel with worry and stressed, this has been happening every couple weeks an can last 3 days. These sensations are triggered by stressful life events. PT denies ever been in crisis or inpatient for mental health. There is no history and/or current concern about SI/Sa and self-harm or other harm. Medical and Physical Health Summary Additional Medical History not covered in history None aditional Sexual History concerns None reported. Physical exam in the last year? Yes Pain Screening Current pain? Yes Pain in the last few months? Yes Comments back pain. Medications Is the patient compliant with medications? Yes Does the patient have Guzman Guardian in place? Not applicable Does the patient use complimentary health approaches? No Trauma/Abuse History History of trauma? No Questionnaires PHQ-9 Over the last 2 weeks, how often have you been bothered by any of the following problems? 1. Little interest or pleasure in doing things: not at all 2. Feeling down, depressed, or hopeless: not at all 3. Trouble falling or staying asleep, or sleeping too much: not at all 4. Feeling tired or having little energy: several days 5. Poor appetite or overeating: several days (hungry at times. ) 6. Feeling bad about yourself - or that you are a failure or have let yourself or your family down: not at all 7. Trouble concentrating on things, such as reading the newspaper or watching television: more than half the days 8. Moving or speaking so slowly that other people could have noticed. Or the opposite - being so fidgety or restless that you have been moving around a lot more than usual: not at all 9. Thoughts that you would be better off or of hurting yourself in some way: not at all Total score: 4 Depression Screening Interpretation: Negative Depression Screening Done: Yes 06623 - PHQ-9 Billing: Yes Source: Developed by Drs. Mateus Stout, Tori Luis, Kvng Montiel and colleagues, with an educational maria m from [employer]. Binge Eating Scale Group 1 A. I don't feel self-conscious about my wt. or body size when I'm with others. B. I feel concerned about how I look to others, but it normally does not make me fell disappointed with myself C. I do get self-conscious about my appearance and wt. which makes me feel disappointed in myself. D. I feel very self-conscious about my wt. and frequently I feel intense shame and disgust for myself. I try to avoid social contacts because of my self-consciousness. Response Group 1: C Group 2 A. I don't have any difficulty eating slowly in the proper manner. B. Although I seem to gobble down foods, I don't end up feeling stuffed because of eating to much. C. At times, I tend to eat quickly and then, I feel uncomfortably full afterwards. D. I have the habit of bolting down my food, without really chewing it. When this happens I usually feel uncomfortably stuffed because I've eaten to much. Response Group 2: C Group 3 A. I feel capable to control my eating urges when I want to. B. I feel like I have failed to control my eating more than the average person. C. I feel utterly helpless when it comes to feeling in control of my eating urges. D. Because I feel so helpless about controlling my eating I have become very desperate about trying to get control. Response Group 3: A Group 4 A. I don't have the habit of eating when I'm bored. B. I sometimes eat when I'm bored, but often I'm able to get busy and get my mind off food. C. I have a regular habit of eating when I'm bored, but occasionally, I can use some other activity to get my mind off eating. D. I have a strong habit of eating when I'm bored. Nothing seems to help me breath the habit. Response Group 4: B Group 5 A. I'm usually physically hungry when I eat something. B. Occasionally, I eat something on impulse even though I really am not hungry. C. I have the regular habit of eating foods, that I might not really enjoy, to satisfy a hungry feeling even though physically, I don't need the food. D. Although I'm not physically hungry, I get a hungry feeling in my mouth that only seems to be satisfied when I eat a food, like sandwich, that fills my mouth. Sometimes, when I eat the food to satisfy my mouth hunger, I then spit the food out so I won't gain weight. Response Group 5: C Group 6 A. I don't feel any guilt or self-hate after I overeat. B. After I overeat, occasionally I feel guilt or self-hate. C. Almost all the time I experience strong guilt or self-hate after I overeat. Response Group 6: B Group 7 A. I don't lose total control of my eating when dieting even after periods when I overeat. B. Sometimes when I eat a forbidden food on a diet, I feel like I blew it and eat even more. C. Frequently, I have the habit of saying to myself, I've blown it now, why not go all the way, when I overeat on a diet. When that happens I eat more. D. I have a regular habit of starting a strict diets for myself but I break the diets by going on an eating binge. My life seems to be either a feast or famine. Response Group 7: B Group 8 A. I rarely eat so much food that I feel uncomfortably stuffed afterwards. B. Usually about once a month, I each such a quantity of food, I end up feeling very stuffed. C. I have regular periods during the month when I eat large amounts of food, either at mealtime or at snacks. D. I eat so much food that I regularly feel quite uncomfortable after eating and sometimes a bit nauseous. Response Group 8: C Group 9 A. My level of calorie intake does not go up very high or go down very low on a regular basis. B. Sometimes after I overeat, I will try to reduce my caloric intake to almost nothing to compensate for the excess calories I've eaten. C. I have a regular habit of overeating during the night. It seems that my routine is not to be hungry in the morning but overeat in the evening. D. In my adult years, I have had week-long periods where I practically starve myself. This follows periods when I overeat. It seems I live a life of either feast or famine. Response Group 9: B Group 10 A. I usually am able to stop eating when I want to. I know when enough is enough. B. Every so often, I experience a compulsion to eat which I can't seem to control. C. Frequently, I experience strong urges to eat which I seem unable to control, but at other times I can control my eating urges. D. I feel incapable of controlling urges to eat. I have a fear of not being able to stop eating voluntarily. Response Group 10: A Group 11 A. I don't have any problem stopping eating when I feel full. B. I usually can stop eating when I feel full but occasionally overeat leaving me feeling uncomfortably stuffed. C. I have a problem stopping eating once I start and usually I feel uncomfortably stuffed after I eat a meal. D. Because I have a problem not being able to stop eating when I want, I sometimes have to induce vomiting to relieve my stuffed feeling. Response Group 11: B Group 12 A. I seem to eat just as much when I'm with others, Family social gatherings as when I'm by myself. B. Sometimes, when I'm with other persons, I don't eat as much as I want to eat because I'm self-conscious about my eating. C. Frequently, I eat only a small amount of food when others are present, because I'm very embarrassed about my eating. D. I feel so ashamed about overeating that I pick times to overeat when I know no one will see me. I feel like a closet eater. Response Group 12: A Group 13 A. I eat three meals a day with only an occasional between meal snack. B. I eat 3 meals a day, but I also normally snack between meals. C. When I am snacking heavily, I get in the habit of skipping regular meals. D. There are regular periods when I seem to be continually eating, with no planned meals. Response Group 13: A Group 14 A. I don't think much about trying to control unwanted eating urges. B. At least some of the time, I feel my thoughts are pre-occupied with trying to control my eating urges. C. I feel that frequently I spend much time thinking about how much I ate or about trying not to eat anymore. D. It seems to me that most of my waking hours are pre-occupied by thoughts about eating or not eating. I feel like I'm constantly struggling not to eat. Response Group 14: A Group 15 A. I don't think about food a great deal. B. I have strong craving for food but they last only for brief periods of time. C. I have days when I can't seem to think about anything else but food. D. Most of my days seem to be pre-occupied with thoughts about food. I feel like I live to eat. Response Group 15: A Group 16 A. I usually know whether or not I'm physically hungry. I take the right portion of food to satisfy me. B. Occasionally, I feel uncertain about knowing whether or not I'm physically hungry. A these times it's hard to know how much food I should take to satisfy me. C. Even though I might know how many calories I should eat, I don't have any idea what is a normal amount of food for me. Response Group 16: A Binge Eating Score: 13 Score less than 17 Minimal Risk Score between 18-26 Moderate Risk Score between 27-46 High Risk Assessment & Plan Assessment & Plan (1) Depression: Code(s): F32.A - Depression, unspecified Plan From a behavioral health perspective, the patient is cleared to proceed with the bariatric surgery process. She will be monitored post-surgery, with follow-up scheduled. However, the patient needs to discuss financial concerns with her provider, particularly regarding the cost of required products and her ability to continue the program if she is unable to purchase them regularly. The patient requested a follow-up after the holidays for continued support. The next appointment is scheduled for 10/02/2024 at 9:00 AM. Telehealth Telehealth Telehealth Platform: [facility] Location of provider rendering services: practice address Location of patient: address on file Patient Identification confirmed using: Name, : Yes Telehealth method: voice only Patient verbally consented to treatment: Yes Patient verbally consented to billing insurance company: Yes Patient informed of any privacy concerns related to visit: Yes Minutes spent on Phone/Video with Pt.: 45 Coding Level of Care Code Established Pt Tele Psytx 45 mins ([id number]) Patient Type Established Diagnoses Depression F32.A Additional Codes PHQ-9 - 02902 - PHQ-9 Billing: Yes ([id number]) Time Spent (min) 45
== END ==
LOC: HO.HBST 12:21
PROVIDERS: Visit Provider Counselor Mental Health
DX: F32.1 Major depressive disorder, single episode, moderate (principal)
CPT/HCPCS: 90834

== ENCOUNTER 2024-10-02 09:25 | Outpatient (AMB) | payer OTHER, SELFPAY ==
--- NOTE | 2024-10-02 09:10 | A.OFFWM_ITS ---
Intake Intake Visit Reasons: VIDEO BH F/U Allergies No Known Allergies Allergy (Verified 10/24/24 16:22) [facility] Medical History (Updated 11/01/24 @ 00:01 by Background Daemon) H. pylori infection GERD (gastroesophageal reflux disease) Sickle cell trait Elevated cholesterol Back pain Depression Obstructive sleep apnea on CPAP Hypothyroidism BMI 38.0-38.9,adult Surgical History (Updated 11/01/24 @ 00:01 by Background Daemon) Hx of section Family History Mother High cholesterol Father No problems noted. Social History Household Members: Children Housing: House Are you a primary career specialist to a significant other at home: No Do you presently have visiting nurse or other home services: No Alcohol intake: never Patient Tobacco Use Status: Never used Tobacco Second Hand Smoke Exposure: No service: No Behavioral Health Assessment Weight Management Therapy Therapy Notes Details Subjective: PT reports she has bought new products and has been consistent at following meal plan and excercise routine. PT shared some sources of stress. Objective: PT presents for a follow up visit via Telehealth. The session focused on strengthening habit-building strategies and preparing the patient for surgery. Explored current stressors and collaborated on utilizing her support system and applying problem-solving techniques. Provided tailored coping strategies and offered feedback on making long-term lifestyle changes to support her weight-loss goals. Assessment/Response: * Mental status: WNL * Risk reported/identified: None The patient is making progress toward her weight loss goals and has shown commitment to the prescribed lifestyle changes. The patient appeared stable and active during the session. She responded well to interventions and demonstrated engagement in the therapeutic process. Functioning appeared intact, with no signs of impairment. Food/Weight/Diet Expectations of change Start weight - 08/16/2024: 196Lbs Most recent weight - 10/01/2024: 191Lbs Target weight before surgery: 181Lbs. . -Current meal plan: 2 protein shakes, 2 protein bars, and one meal per day. - Doing pure protein powder and quest mini bars, not using [employer] site. -Exercise plan: Youtube videos. 3-4 days at week about 30 min. PT doesn't have how to keep track of calories. Assessment & Plan Assessment & Plan (1) Depression: Code(s): F32.A - Depression, unspecified Plan PT has been submitted to insurance for approval. She was informed Maggie BoldenCyn will reach out to her once we get the response. She was given this provider # in case she wants an roberta before surgery, Otherwise she will be seen post-op 3-7 days post-op. Next roberta: Pre-op is PT requests OR 3-7 Days PO. Telehealth Telehealth Telehealth Platform: [facility] Location of provider rendering services: other Location of patient: address on file Patient Identification confirmed using: Name, : Yes Telehealth method: voice only Patient verbally consented to treatment: Yes Patient verbally consented to billing insurance company: Yes Patient informed of any privacy concerns related to visit: Yes Minutes spent on Phone/Video with Pt.: 45 Coding Level of Care Code Established Pt Tele Psytx 45 mins ([id number]) Patient Type Established Diagnoses Depression F32.A Time Spent (min) 45
--- NOTE | 2024-10-02 09:10 | MHC.WMTHER ---
Intake Intake Visit Reasons: VIDEO BH F/U Allergies No Known Allergies Allergy (Verified 08/16/24 11:23) [facility] Medical History (Updated 08/16/24 @ 11:45 by Moe Paris MD) Back pain Depression Obstructive sleep apnea on CPAP Hypothyroidism BMI 38.0-38.9,adult Surgical History Hx of section Family History Mother High cholesterol Father No problems noted. Social History Alcohol intake: never Patient Tobacco Use Status: Never used Tobacco Behavioral Health Assessment Weight Management Therapy Therapy Notes Details PT presents for a follow up visit. PT reports she has bought new products Food/Weight/Diet Expectations of change Start weight - 08/16/2024: 196Lbs Most recent weight - 10/01/2024: 191Lbs Target weight before surgery: 181Lbs. . -Current meal plan: 2 protein shakes, 2 protein bars, and one meal per day. - Doing pure protein powder and quest mini bars, not using [employer] site. -Exercise plan: Youtube videos. 3-4 days at week about 30 min. PT doesn't have how to keep track of calories. Assessment & Plan Assessment & Plan Plan PT has been submitted to insurance for approval. She was informed Maggie BoldenCyn will reach out to her once we get the response. She was given this provider # in case she wants an roberta before surgery, Otherwise she will be seen post-op 3-7 days post-op. Next roberta: Pre-op is PT requests OR 3-7 Days PO. Coding Level of Care Code Established Pt Tele Psytx 45 mins ([id number]) Patient Type Established Time Spent (min) 45
== END 2024-10-02 10:01 | disposition home or self-care (01) ==
LOC: HO.HBST 09:25
PROVIDERS: Visit Provider Counselor Mental Health
CPT/HCPCS: 90834

== ENCOUNTER → 2024-10-02 09:25 | Outpatient (BNVA) | payer OTHER, SELFPAY | PROVIDERS: Visit Provider Counselor Mental Health ==

== ENCOUNTER 2024-10-24 10:13 | Outpatient (REF) | payer OTHER, SELFPAY ==
[2024-10-24 12:33] LABS: MANUAL DIFF FLAG NO
[2024-10-24 13:10] LABS: Basophils Percent Auto 0.8 % (0-2); Eosinophils Absolute Auto 0.1 X10*3/uL (0.0-0.4); Eosinophils Percent Auto 1.2 % (0-4); Hematocrit 28.7 % (37.0-47.0); Hemoglobin 9.6 g/dl (12.0-16.0); Imm Gran Abs Auto 0.01 X10*3/uL (0.00-0.03); Imm Gran Pct Auto 0.2 % (0.0-0.4); Lymphocytes Absolute Auto 2.4 X10*3/uL (1.2-4.9); Lymphocytes Percent Auto 45.9 % (20-40); Mean Corpuscular HGB Conc 33.4 g/dl (31.0-35.0); Mean Corpuscular Hemoglobin 30.4 pg (27.0-33.0); Mean Corpuscular Volume 90.8 fL (80.0-98.0); Mean Platelet Volume 9.8 fL (9.4-12.3); Monocytes Absolute Auto 0.4 X10*3/uL (0.1-1.2); Monocytes Percent Auto 7.6 % (2-11); Neutrophils Absolute Auto 2.3 x10*3/uL (2.0-8.3); Neutrophils Percent Auto 44.3 % (45-73); Platelet Count 207 X10*3/uL (160-400); Red Blood Count 3.16 X10*6/uL (4.20-5.50); Red Cell Distribution Width 13.5 % (11.0-16.0); White Blood Count 5.1 X10*3/uL (4.8-10.8)
[2024-10-24 13:23] LABS: Prothrombin Time 11.2 SEC (10.9-12.4)
[2024-10-24 13:25] LABS: Partial Thromboplastin Time 33.1 SEC (26.0-36.8)
[2024-10-24 13:29] LABS: Estimated Average Glucose 94 mg/dL; Hemoglobin A1C 77.5701 umol/L; Hemoglobin A1c % 4.9 % (<6.0); Total Hemoglobin (HGBA1C) 2577.2882 umol/L
[2024-10-24 14:49] LABS: Alanine Aminotransferase 39 U/L (0-31); Albumin Level 4.4 g/dL (3.5-5.0); Alkaline Phosphatase 75 U/L (39-117); Anion Gap 9 (12-20); Aspartate Amino Transferase 35 U/L (5-31); Bilirubin Total 1.1 mg/dL (0.0-1.0); Blood Urea Nitrogen 12 mg/dL (9-16); Calcium 9.1 mg/dL (8.4-10.2); Carbon Dioxide 26 mmol/L (22-29); Chloride 110 mmol/L (96-108); Cholesterol 227 mg/dL (<200); Estimated Glomerular Filt Rate > 60; Glucose Random 85 mg/dL (60-115); HDL Cholesterol 43 mg/dL (>40); LDL Cholesterol Calculated 155 mg/dL (<100); Potassium 3.8 mmol/L (3.3-5.1); Sodium 141 mmol/L (135-145); Total Protein 7.7 g/dL (6.5-8.0); Triglycerides 148 mg/dL (<150)
[2024-10-24 14:50] LABS: Insulin 15 uU/mL (2-29)
[2024-10-24 18:06] LABS: Free T4 (Free Thyroxine) 0.53 ng/dL (0.71-1.85)
== END 2024-10-24 10:14 | disposition home or self-care (01) ==
LOC: HO.LAB 10:13
PROVIDERS: Visit Provider Surgery
DX: E66.812 Obesity, class 2 (principal); E66.01 Morbid (severe) obesity due to excess calories; Z68.38 Body mass index [BMI] 38.0-38.9, adult; E03.9 Hypothyroidism, unspecified; I10 Essential (primary) hypertension; E78.5 Hyperlipidemia, unspecified
CPT/HCPCS: 36415; 80053; 80061; 83036; 83525; 84439; 84443; 85025; 85610; 85730; 86140

== ENCOUNTER 2024-10-24 10:13 | Outpatient (AMB) | payer OTHER, SELFPAY ==
[2024-10-24 16:18] VITALS: BMI 35.2
--- NOTE | 2024-10-24 16:18 | A.OFFVIS_ITS ---
VS Expanded 10/24/24 16:18 Height 5 ft 1 in Weight 186 lb 8 oz BMI 35.2 Body Fat % 46.4 Body Fat Mass 86.6 Fat Free Mass 100 Visceral Fat Rating 17 Body Water % 36.8 Body Water Mass 86.7 Basal Metabolic Rate/Score 1,345 Intake Visit Reasons: TV Pre Op LSG 10/29/2024 Allergies No Known Allergies Allergy (Verified 10/24/24 16:22) Medication List - Last Reconciled 10/24/24 by Moe Paris MD ascorbic acid (vitamin C) 500 mg PO BEDTIME aspirin 81 mg PO DAILY atorvastatin 40 mg PO DAILY B complex-vitamin C-folic acid 400 mcg ER 1 tab PO DAILY bupropion HCl XL 150 mg PO DAILY cholecalciferol (vitamin D3) 25 mcg PO DAILY docusate sodium (Colace) 100 mg PO BID ferrous sulfate 325 mg PO DAILY fluoxetine 40 mg PO DAILY levothyroxine 300 mcg PO DAILY ondansetron 4 mg PO Q6H PRN pantoprazole 40 mg PO DAILY polyethylene glycol 3350 17 grams PO DAILY sucralfate 10 mL PO BID HPI HPI TV Pre Op LSG 10/29/2024: Details: Start time: 3.10pm, End time 3.40pm I spent 25 minutes discussing with the patient and 5 minutes to prepare my note HPI Comments Details: Overall weight loss: 13lbs, or 6.51% TBWL This is her preoperative appointment for the upcoming sleeve gastrectomy [facility] Medical History (Updated 10/23/24 @ 19:14 by Moe Paris MD) Back pain Depression Obstructive sleep apnea on CPAP Hypothyroidism BMI 38.0-38.9,adult Surgical History Hx of section Family History Mother High cholesterol Father No problems noted. Social History Alcohol intake: never Patient Tobacco Use Status: Never used Tobacco Telehealth Telehealth Telehealth Platform: Telephone Location of provider rendering services: practice address Location of patient: address on file Patient Identification confirmed using: Name, : Yes Telehealth method: voice only Patient verbally consented to treatment: Yes Patient verbally consented to billing insurance company: Yes Patient informed of any privacy concerns related to visit: Yes Minutes spent on Phone/Video with Pt.: 30 Assessment & Plan Assessment & Plan (1) Obesity: Code(s): E66.9 - Obesity, unspecified Category: Medical Qualifiers: Obesity type: due to excess calories Obesity classification: adult class 2 (BMI 35 - 39.9) Serious obesity comorbidity presence: with serious comorbidity Body mass index: BMI 38.0-38.9 Qualified Code(s): E66.812 - Obesity, class 2; E66.01 - Morbid (severe) obesity due to excess calories; Z68.38 - Body mass index [BMI] 38.0-38.9, adult Plan: 1. Plan for lap sleeve gastrectomy including upper GI endoscopy. All tests has been completed and reviewed and the patient is cleared for the surgery. If diaphragmatic or ventral hernias are present at time of surgery, these will be repaired laparoscopically as well. Risks and complications were discussed in detail including possible conversion to an open procedure, anastomotic leak, bleeding requiring transfusion, small bowel obstruction, , DVT and pulmon rocio embolism, cardiac, or pulmonary complications, as usp complications such as anastomotic ulcer, insufficient weight loss and vitamin deficiencies. I emphasized the importance of close follow-up, adherence to instructions and good communication. So far she has proven to be an excellent communicator and very compliant with all our directions accomplishing a great weight loss. I believe that she is an excellent candidate and she is ready. 2. Preop prescriptions were provided and explained the purpose of each one. Need to be purchased preop. Start Pantoprazole now as you get it from the pharmacy, 1 pill per day. Sucralfate and Zofran are for after surgery as needed. 3. Bowel prep: please do 7 packets of Miralax mixing each one with a an 8oz glass of water, crystal light, gatorade zero, or propel on 10/27/24 and the same amount on 10/28/24. The Miralax you begin with one packet at a time in 8oz water or crystal light, gatorade zero, or propel as early in the day as you can and you do them back to back until you finish them. Continue the protein shakes during the bowel prep. 4. Needs to purchase 1oz medicine cups . 5. Needs to purchase Children's liquid Tylenol for postop pain control. 6. She needs to stop the aspirin as of today. Avoid aspirin, motrin, Advil, Aleve, Ibuprofen, Naproxyn. Tylenol is OK. 7. She needs to purchase the Celebrate multivitamins from the hospital's gift shop. 8. Will do basic preop blood work-up by tomorrow Monday10/25/24 fasting for 12 hours and is scheduled to see the Anesthesiologist prior to the day of surgery. 9. Importance of adherence to postop folllow-up and recommendations was underscored and she understands that. 10. Continue to avoid food and bars and continue with 4 PREMIER protein shakes (mix 4oz of Premier with 4oz almond milk) at 9am-11am, 12pm-2pm, 3pm-5pm, 6pm- 8pm and one more Premier protein shake (mix 2oz Premier with 6oz of almond milk) at 8pm-10pm 11. No soups, broths or V8 12. The patient's medical history has been reviewed and they are considered low risk for post op DVT and therefore DVT prophylaxis is not considered necessary. Travel after surgery was reviewed. The patient has not disclosed any travel plans during the first 30 days after surgery and they have been advised that within the first 30 days after surgery any bus, plane, train or car travel over 2 hours in duration is contraindicated due to the possibility of developing blood clots from immobility. Any travel, needs to include periods of ambulation of 10 minutes in duration every 2 hours. Patient was instructed to discuss any plans for travel during this period with their bariatric surgeon. 13. Use your CPAP daily and bring it to the hospital with your mask 14. Please take at the day of surgery the following medications: NONE 15. Stop any control pills and don't use them for one month after surgery 16. Absolutely no smoking or vaping, or marijuana until the surgery and for at least the first 4 weeks. Only nicotine patches are allowed. 17. Send me weight measurements DAILY until the day of surgery before you go to the hospital. 18. Avoid any steroids by mouth for any reason. Let me know if someone prescrib es them to you 19. These instructions supersede anything else you read in the handbook, anything you watched in videos or classes or you were told by any other provider. If there is any conflict, you follow the above instructions and nothing else.
== END 2024-10-24 16:26 | disposition home or self-care (01) ==
PROVIDERS: Visit Provider Surgery
DX: E66.812 Obesity, class 2 (principal); E66.01 Morbid (severe) obesity due to excess calories; Z68.38 Body mass index [BMI] 38.0-38.9, adult
CPT/HCPCS: 99499

== ENCOUNTER 2024-10-29 06:17 | Inpatient (IN) | payer OTHER, SELFPAY ==
[2024-10-25 13:59] VITALS: BMI 36.1
--- NOTE | 2024-10-28 08:42 | P.CONAN_ITS ---
Documented by User: Alicia Wolf NP 10/28/24 08:43 HPI - Anesthesia Eval Consult details Narrative: 59yo F for Gastrectomy Sleeve - EGD, possible diaphragmatic hernia, possible ventral hernia, possible open PMFSH Active Problems Active Problems: All Active Problems BMI 35.0-35.9,adult (Acute) Sickle cell anemia (Acute) H. pylori infection (Acute) Major depressive disorder, recurrent, mild (Acute) Vitamin D deficiency (Acute) Vitamin A deficiency (Acute) Anemia (Acute) Obstructive sleep apnea (Acute) Steatosis, liver (Acute) Hypothyroidism (acquired) (Acute) Hyperlipidemia (Acute) HTN (hypertension), benign (Acute) Obesity (Acute) Back pain (Acute) Depression (Acute) Obstructive sleep apnea on CPAP (Acute) Hypothyroidism (Acute) BMI 38.0-38.9,adult (Acute) Past Medical History Medical History Sickle cell trait Elevated cholesterol Back pain Depression Obstructive sleep apnea on CPAP Hypothyroidism BMI 38.0-38.9,adult Family History Family History Mother High cholesterol Father No problems noted. 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 If so, by whom?: No Are you DNR?: No Advance Directives: No Advance Directives Information Provided: Yes Advance Directives on File: No Recently lost weight without trying: No Eating poorly because of decreased appetite: No Nutrition Risks: No Nutritional Risk Patient : No : No Poor oral hygiene: Yes (missing teeth, ? bridge) Meds Allergies Allergy/AdvReac Type Severity Reaction Status Date / Time No Known Allergies Allergy Verified 10/24/24 16:22 Home Medications ?Medication ?Instructions ?Recorded ?Confirmed ?Last Taken ?Type docusate sodium 100 mg capsule 100 mg PO BID 06/16/22 10/25/24 10/28/24 History (Colace) levothyroxine 300 mcg tablet 300 mcg PO DAILY 06/16/22 10/25/24 10/28/24 History bupropion HCl 150 mg 24 hr tablet, 150 mg PO DAILY 08/15/22 10/25/24 10/28/24 History extended release cholecalciferol (vitamin D3) 25 25 mcg PO DAILY 10/03/22 10/25/24 10/28/24 History mcg (1,000 unit) capsule fluoxetine 40 mg capsule 40 mg PO DAILY 10/03/22 10/25/24 10/28/24 History atorvastatin 40 mg tablet 40 mg PO DAILY 08/16/24 10/25/24 10/28/24 History Exam Height,Weight and Vital Signs: Height 5 ft 1 in Weight 86.636 kg Pertinent Lab Results Pertinent Lab Results: Laboratory Tests 10/24/24 12:21 Blood Type B Positive Antibody Screen NEGATIVE Laboratory Tests 10/24/24 12:31 WBC 5.1 Hgb 9.6 L Hct 28.7 L Plt Count 207 Sodium 141 Potassium 3.8 Chloride 110 H Carbon Dioxide 26 BUN 12 Creatinine 0.58 Narrative Narrative: EKG 2022 Vent. Rate : 067 BPM Atrial Rate : 067 BPM P-R Int : 162 ms QRS Dur : 086 ms QT Int : 400 ms P-R-T Axes : 030 025 069 degrees QTc Int : 422 ms Normal sinus rhythm Normal ECG No previous ECGs available Assessment and Plan Assessment Anesthesia Assessment: Chart Reviewed Documented by User: Guerda Guillen MD 10/29/24 07:37 [facility] Past Medical History Medical History Sickle cell trait Elevated cholesterol Back pain Depression Obstructive sleep apnea on CPAP Hypothyroidism BMI 38.0-38.9,adult Family History Family History Mother High cholesterol Father No problems noted. 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 If so, by whom?: No Are you DNR?: No Advance Directives: No Advance Directives Information Provided: Yes Advance Directives on File: No Recently lost weight without trying: No Eating poorly because of decreased appetite: No Nutrition Risks: No Nutritional Risk Patient : No : No Poor oral hygiene: Yes (missing teeth, ? bridge) Meds Allergies Allergy/AdvReac Type Severity Reaction Status Date / Time No Known Allergies Allergy Verified 10/24/24 16:22 Home Medications ?Medication ?Instructions ?Recorded ?Confirmed ?Last Taken ?Type docusate sodium 100 mg capsule 100 mg PO BID 06/16/22 10/25/24 10/28/24 History (Colace) levothyroxine 300 mcg tablet 300 mcg PO DAILY 06/16/22 10/25/24 10/28/24 History bupropion HCl 150 mg 24 hr tablet, 150 mg PO DAILY 08/15/22 10/25/24 10/28/24 History extended release cholecalciferol (vitamin D3) 25 25 mcg PO DAILY 10/03/22 10/25/24 10/28/24 History mcg (1,000 unit) capsule fluoxetine 40 mg capsule 40 mg PO DAILY 10/03/22 10/25/24 10/28/24 History atorvastatin 40 mg tablet 40 mg PO DAILY 08/16/24 10/25/24 10/28/24 History Exam Airway Mallampati Class: III TM Dist: >3cm Neck ROM: Full Loose/Missing/Broken Teeth: No Heart: RRR Lungs: CTA Assessment and Plan Final Anesthetic Review History of Problems with Anesthesia: No NPO: Yes ASA Class: III Final Preanesthetic Review: Meds/Allgs Chart Reviewed, Consent Obtained/Reviewed and Anes Risks/Benef Reviewed Patient Risk: Intermediate Procedure Risk: Intermediate Anesthetic Plan Anesthetic Plan: GA Disposition: Standard PACU
[2024-10-29] VITALS (12 sets, daily range): BP systolic 113–130; BP diastolic 62–76; PULSE 79–95; RESP 12–18; TEMP 36.1–37.2; O2SAT 93–100; BMI 35.6
[2024-10-29] MEDS: Aprepitant 32 MG/4.4 ML VIAL IVPUSH (06:51)
[2024-10-29] MEDS: Lactated Ringers 1,000 ML 999 ML IV (06:51)
--- NOTE | 2024-10-29 07:28 | MHC.SHP ---
Pre-Procedural Eval Section A - 24 Hr Update-Section A only Date of Service: 10/29/24 The patient is an INPATIENT: Yes The patient has been examined within 24 hours of the surgical procedure. The History & Physical has been completed within 30 days and I have reviewed it.: Yes Section B - Complete if H&P > 30 days Chief Complaint: Obesity Relevant Family History (Specify if Yes): No Relevant Social History: None Present Medications: None Medical History: No relevant PMH History of Previous Operations: No relevant previous surgery Allergies: Allergies Allergy/AdvReac Type Severity Reaction Status Date / Time No Known Allergies Allergy Verified 10/24/24 16:22 Review of Systems Sugical H&P ROS: Negative: Constitution, Cardiovascular, Respiratory, Neurological, Psychiatric, Hem-Onc, Allergic/Immunologic, Gastrointestinal, Genitourinary, Musculoskeletal, Integumentary, Endocrine and Eyes/Ears/Nose/Throat Exam Surgical H&P Exam: Normal: HEENT, Normal: Heart, Normal: Lungs, Normal: Extremities, Normal: Abdomen, Normal: Skin and Normal: Neurological Plan Diagnosis/Plan: Unchanged I have reviewed the history and physical and performed a pertinent physical examination on my patient. No changes have occurred unless specified. Time Spent With Patient Time: Total time managing care of this patient today ____ minutes.
--- NOTE | 2024-10-29 07:28 | PHA.MEDREC ---
Pharmacy Consult ? Medication Reconciliation Pharmacy has completed the medication reconciliation. Spoke with patient at bedside, she had a list on her phone. She confirmed her meds with that, but had a capsaicin cream, diclofenac gel, and flonase that haven't been filled. Left these off the list for now. Last taken yesterday.
--- NOTE | 2024-10-29 07:30 | PM.OP ---
Brief Operative Note Date of Service: 10/29/24 Pre-op diagnosis: Severe obesity with comorbidities (see below) Post-op diagnosis: same Procedure: INITIAL PATIENT BMI ON PRESENTATION AT OUR OFFICE: 37.7 kg/m2 LAST BMI BEFORE SURGERY: 34.3 kg/m2 COMORBIDITIES: sleep apnea on CPAP, depression, anxiety, hypothyroidism, hyperlipidemia, back pain, GERD, liver fibrosis ?The patient presented to the Weight Management Program with significant obesity that was negatively impacting the patient's comorbidities as listed above.? The program is a phased program with a special focus on preoperative medical weight management to promote substantial weight loss and prepare the patients for the second phase of the program: bariatric surgery. The patient participated in an intensive weekly lifestyle ?intervention and exercise program during which the patient ?has lost between the initial office visit and the last preoperative visit 14lbs, or 6% of initial actual body weight. It was deemed appropriate for the patient to now have bariatric surgery. In light of the current Covid-19 pandemic and the well documented strong association of obesity and increased risk of worse outcomes if infected with Covid-19 (REFERENCES:https://pubmed.ncbi.nlm.nih.gov/69858008/,?https://pubmed.ncbi.nlm.nih.gov/52911524/), any delay in undergoing bariatric surgery may lead to the patient's worsening health condition and increased?risk of more severe Covid-19 disease if infected. In addition a recent?study from [facility] published in [facility]ELAN[facility] Surgery on 09/20/2021 ([email or web address]) found that, among patients with obesity, substantial weight loss achieved with surgery was associated with improved outcomes of COVID-19 infection. The findings suggest that obesity can be a modifiable risk factor for the severity of COVID-19 infection. In addition, the patient met the BMI-criteria for bariatric surgery based on the BMI on initial presentation. The patient should not be penalized for achieving such weight loss because ?it is not sustainable long-term without surgical intervention and it was achieved in preparation for bariatric surgery ?under my direction and based on my published research ([email or web address] and?https://www.soard.org/article/[email or web address](11)65230-X/pdf) ?that a 10% preoperative weight loss improves long-term weight loss after surgery and reduces perioperative complications.? Insurance carriers such as [facility] have endorsed my recommendations ?and have included in their policies criteria to include a 10% preoperative weight loss requirement. PROCEDURE: Esophago-gastroscopy, laparoscopic sleeve gastrectomy and laparoscopic gastropexy INDICATIONS: This is a 59 year-old female who was electively scheduled for laparoscopic, possibly open sleeve gastrectomy. The risks and complications of the procedure were discussed with the patient in advance, particularly the possibility of ; pulmonary embolism; staple line leak; bleeding; GERD; cardiac, pulmonary, or renal complications; as well as long-term problems such as insufficient weight loss, vitamin deficiency, strictures, or ulcers. The patient understood all the risks, and was in agreement to proceed with surgery. DESCRIPTION OF PROCEDURE: After informed consent was obtained from the patient, the patient was given preoperative antibiotics, and was transferred to the operating room. After successful induction of general anesthesia, pneumatic compression devices were placed on both lower extremities. An upper endoscopy was performed next. The oropharynx and esophagus appeared to be within normal limits. There was no diaphragmatic hernia present. The stomach was entered. Then after all fluid and air were suctioned and the stomach was fully decompressed, the scope was withdrawn and secured in the mid esophagus. The patient was then prepped and draped in the usual sterile manner, and abdominal access was established at the right upper quadrant with the Christos technique. A 12 mm blunt port was inserted, and the abdomen was insufflated with CO2 to a pressure of 15 mmHg. Under direct visualization, additional ports were placed, specifically two 5 mm Versi-step ports to the left upper quadrant, and a 5 mm Versi-Step port to the right upper quadrant. 1% lidocaine plain was used to infiltrate all port sites as well as all fascia defects. Following that, the patient was placed in a steep reverse Trendelenburg position. An additional 5 mm port was placed to the right flank for the Mediflex retractor that was used to retract the left lobe of the liver. The gastro-esophageal fat pad was opened with the ultrasonic device (Thjulienneerbeat, Olympus) and the anterior esophagus and hiatus were exposed. The angle of His was opened with the ultrasonic device the fundus of the stomach from any diaphragmatic and splenic attachments. I then opened the gastrocolic ligament between the transverse colon and the greater curvature of the stomach with the ultrasonic device to enter the lesser sac and facilitate the ligation of the short gastric vessels. I started at a mid-point along the greater curvature and using the Thunderbeat, all short gastric vessels were divided all the way to the angle of His until the left per was completely dissected at its entirety. I then divided the gastro-colic ligament distally to a distance of about 3-4 cm proximal to the pylorus. The stomach was then divided transversely with four Endo WAYNE-45 purple and two WAYNE-60 articulating purple loads using the BIO-NEMS stapler and loads. Every effort was made that the gastric sleeve had a tubular shape and an even caliber throughout. Once the sleeve resection was completed, the staple line of the gastric sleeve was reinforced with Hemoclips. The resected stomach was retrieved without difficulty from the Christos port. A gastropexy was then performed in order to prevent postoperative GERD and partial gastric volvulus. Several interrupted 2.0 Surgidac sutures were placed between the sleeve's staple line and the previously divided greater omentum and gastro-colic ligament using the Endo-Stitch device. ?An upper endoscopy was performed. There was no narrowing at the GE junction. The scope was easily advanced all the way to the pylorus which was clearly visualized. There was no narrowing anywhere and the sleeve's caliber was even throughout. The sleeve's staple line was inspected and there was no evidence of ischemia, bleeding or dehiscence. At that point the gastroscope was withdrawn from the patient?s mouth while we were decompressing the bowel and the stomach from any remaining air. I looked into the lesser sac to see how the sleeve was situating and it was situating well. There was no bleeding from the staple line, spleen, or short gastric vessels. The Mediflex retractor was removed, and the undersurface of the liver was inspected and there was no bleeding. The patient was placed in supine position. I closed the fascial defect of the 12 mm port site with a figure of eight #1 Polysorb suture. Then 30cc Ropivacaine plain with 10 mg of Dexamethasone were used to infiltrate the fascial closure as well as all skin incisions. At this point, the abdomen was deflated, all ports were removed under direct vision, and no bleeding was noted from any of the port sites. The skin incisions were irrigated with saline and were closed with 4-0 absorbable monofilament sutures. Steri-Strips and OpSites were used to cover all incisions. The patient was extubated and was transferred in stable condition to the recovery room for further care. I was present and performed all orellana parts of the procedure. Mr. Rea was the first aid officer. There were no residents to assist with this case. Gibson Paris MD, PhD, FACS Surgeon: Moe Paris MD Anesthesia: GETA, local and other (TAP block) Was an Leaf Stamper used for this Procedure?: Yes Leaf Stamper: Julio Rea Estimated blood loss (mL): 10 IV fluids (mL): 2,000 Urine output (mL): 0 (No Avery to record output) Pathology: other (1) Stomach, 2) Gastro-esophageal fat pad) Condition: stable Disposition: PACU
--- NOTE | 2024-10-29 07:33 | P.PNGS_ITS ---
Subjective Subjective Date of Service: 10/30/24 Interval history: Feels well. Mild incisional pain. She is tolerating phase 1 bariatric diet Physical Exam 2 Vital Signs: Vital Signs: Last Vital Signs Temp 97.3 F 10/29/24 06:36 Pulse 84 10/29/24 06:36 Resp 16 10/29/24 06:36 BP 125/76 10/29/24 06:36 Pulse Ox 93 10/29/24 06:36 O2 Del Method Room Air 10/29/24 06:36 BMI result Body Mass Index 35.6 GI: Inspection: Yes normal to inspection and Yes incision (clean, dry and intact) Palpation (GI): Soft to palpation Extrem: Right lower extremity: normal to inspection (no calf tenderness) L eft lower extremity: normal to inspection (no calf tenderness) Objective Data Active Medications Albuterol Sulfate (Albuterol Sulfate (0.083%) 2.5 Mg/3 Ml Vial.Neb) 2.5 mg INHALE ONCE PRN PRN Reason: Shortness of Breath/Wheezing Lactated Ringer's (Lr) 1,000 mls @ 100 mls/hr IVCONT .Q10H UDAY Lactated Ringer's (Lr) 1,000 mls @ 999 mls/hr IV .Q1H1M UDAY Stop: 10/29/24 08:30 Last Admin: 10/29/24 06:51 Dose: 999 mls/hr Documented By: DEANC Labs 10/30/24 05:54 10/30/24 05:54 Procedures Date of Service Date of Service: 10/30/24 Progress Note: A&P Assessment and plan (1) Obesity: Status: Acute Assessment and Plan: s/p laparoscopic sleeve gastrectomy and gastropexy Doing well Will check am labs and if OK the patient will be discharged home (2) BMI 35.0-35.9,adult: Status: Acute (3) Steatosis, liver: Status: Acute (4) Obstructive sleep apnea on CPAP: Status: Acute (5) Liver fibrosis: Status: Acute (6) Hypothyroidism: Status: Acute (7) Hyperlipidemia: Status: Acute (8) GERD (gastroesophageal reflux disease): Status: Acute (9) S/P laparoscopic sleeve gastrectomy: Status: Acute Time Spent With Patient Time: Total time managing care of this patient today ____ minutes. Quality Stroke Does the patient have a stroke diagnosis?: No VTE Prior VTE?: No VTE Risk Level:: Surgical - moderate VTE Device Contraindication: N/A - Device Ordered VTE Drug Contraindication: Treatment Not Indicated
[2024-10-29] MEDS: ceFAZolin Sodium/Dextrose,Iso 2 GM/50 ML PIGGYBACK IV ×2 (07:55→14:25)
[2024-10-29] MEDS: Acetaminophen 1,000 MG/100 ML PIGGYBACK 400 MG IV (09:40)
--- NOTE | 2024-10-29 10:52 | PM.DS ---
DS: Providers Provider Date of Service: 10/30/24 Date of admission: 10/29/24 06:17 Date of discharge: 10/30/24 Primary care physician: Unknown Physician DS: Diagnosis Discharge Diagnosis (1) Obesity: Status: Acute (2) BMI 35.0-35.9,adult: Status: Acute (3) Steatosis, liver: Status: Acute (4) Obstructive sleep apnea on CPAP: Status: Acute (5) Liver fibrosis: Status: Acute (6) Hypothyroidism: Status: Acute (7) Hyperlipidemia: Status: Acute (8) GERD (gastroesophageal reflux disease): Status: Acute (9) S/P laparoscopic sleeve gastrectomy: Status: Acute DS: Summary Hospital Course Hospital Course: ADMITTING DIAGNOSIS: obesity, oas, depression, hypothyroid, htn ? DISCHARGE DIAGNOSIS: same, s/p laparoscopic sleeve gastrectomy ? PAST SURGICAL HISTORY: cesarian section ? PROCEDURE: upper endoscopy, laparoscopic sleeve gastrectomy ? DISCHARGE SUMMARY: ? History of Present Illness: ? The patient is a?59 year-old woman with a BMI of?38 kg/m2 and associated co-morbidities as described above. The patient had extensive work-up,lost?11.3 lbs preoperatively and was electively scheduled for laparoscopic, possible open sleeve gastrectomy and gastropexy. Risks and complications of the surgery were discussed with the patient in advance, particularly the possibility of , pulmonary embolism, anastomotic leak, bleeding, bowel injury, GERD, cardiac, renal or pulmonary complications. The patient understood all the risks and was in agreement with the surgical plan. ? Hospital Course: ? The patient underwent an uneventful laparoscopic sleeve gastrectomy with gastropexy on the day of admission. Postoperatively, the patient was transferred to the surgical floor. The patient received IV Acetaminophen and IV dilaudid for pain control. Patient was started on bariatric phase 1 diet POD #0. On postoperative day one, the patient was feeling well without nausea, vomiting, fevers, or tachycardia. The patient had some mild incisional pain and the abdomen was soft. ? On the morning of postoperative day one, the patient was continued on 1 ounce of water or ice every half hour. During the day, the patient did fairly well, having some incisional pain, but able to ambulate adequately and to tolerate liquids well. ? Since the patient is doing well, we decided that the patient was ready to be discharged. The patient was given instructions to follow-up with me next week and to call my office for any fever over 101, persistent abdominal pain, nausea, vomiting, GERD, symptoms of DVT such as calf tenderness, or leg swelling, or pulmonary embolism such as chest pain or shortness of breath. The patient was also instructed to drink 40-60 ounces of liquids per day using the 1-ounce cups. The patient had been given prescriptions for Tylenol for pain, Zofran prn for nausea, and pantoprazole and carafate previously. The patient was encouraged to ambulate and use the incentive spirometer. The patient was allowed to shower, but no baths, and encouraged to stay active at home. All of these instructions were given to the patient personally. All questions were answered and the patient understood all instructions, the instructions were also given to the patient in print. Time Attestation Total time managing care of this patient today: 25 mintues. Discharge Coordination Time (in mins): 25 Quality: Safe Use of Opioids Does Pt have an Active Cancer Diagnosis on the Problem List?: No Quality: Stroke Does the patient have a stroke diagnosis?: No Physical Exam Vital Signs: Vital Signs: Last Vital Signs Temp 97.5 F 10/29/24 10:35 Pulse 86 10/29/24 10:50 Resp 18 10/29/24 10:50 BP 123/72 10/29/24 10:50 Pulse Ox 99 10/29/24 10:50 O2 Del Method Simple Mask 10/29/24 10:50 O2 Flow Rate 3 10/29/24 10:50 BMI result Body Mass Index 35.6 DS: Data Data Completed and Pending Pending studies at discharge: Pending at discharge 10/29/24 09:26 Surgical [PTH] Routine Discharge Plan Discharge Anticipated Discharge Date/Time: 10/30/24 10:00 Patient Disposition: Home, Self-Care Discharge Diagnosis: s/p laparoscopic sleeve gastrectomy Referrals: Physician,Unknown J [Primary Care Provider] - 1 Week Discharge Medications: Continued pantoprazole 40 mg tablet,delayed release (DR/EC) 40 mg PO DAILY Qty: 90 0RF sucralfate 100 mg/mL suspension 10 ml PO BID Qty: 600 2RF ondansetron 4 mg tablet,disintegrating 4 mg PO Q6H PRN (Reason: nausea and vomiting) Qty: 20 0RF levothyroxine 300 mcg tablet 300 mcg PO DAILY docusate sodium [Colace] 100 mg capsule 100 mg PO BID bupropion HCl 150 mg tablet extended release 24 hr 150 mg PO DAILY fluoxetine 40 mg capsule 40 mg PO DAILY atorvastatin 40 mg tablet 40 mg PO DAILY Discontinued cholecalciferol (vitamin D3) 25 mcg (1,000 unit) capsule 25 mcg PO DAILY ferrous sulfate 325 mg (65 mg iron) tablet 325 mg PO DAILY Qty: 30 6RF Discharge Orders: Discharge Order (Routine); Ordered 10/30/24 Ordered By: Moe Paris Activity on Discharge: No heavy lifting Stand Alone Forms: Patient Portal Discharge page Print Language: Tajik Care Plan Goals: weight loss Health Concerns: obesity Plan of Treatment: No tub baths, sex or returning to work until discussed at first post op appointment. No exercise, alcohol, tobacco or illegal drug use. Continue to use incentive spirometer hourly while awake. Walk in home for 5- 10 minutes every 2 hours during the first week. Follow all instructions in the bariatric handbook and call with any questions.Discharge Instructions 1. Please call your doctor or come back to the emergency room should any new symptoms arise. 2. You will receive a courtesy call from [facility] 24-48 hours after discharge. 3. Activity: abstain from alcohol, practice limited stair climbing, no bending, no driving, no exercise, no illicit substances, no lifting, no sex, no tub bath, no work. 4. Diet: continue as discussed with Dr. Paris. 5. Dressing Change/Wound Care: Your incision is covered by clear bandages and guaze underneath. If the area is tender, you may apply an ice pack for short intervals (no more than 20 minutes on, followed by at least 20 minutes off). Do not apply heat. Do not use creams, lotions, or topical antibiotics unless instructed to do so by your surgeon. These can cause infection or allergic reaction. 6. Call your doctor if: - Your temperature exceeds 101.5 F - You experience excessive pain or swelling - You have an unexpected reaction to medication - You have excessive bleeding - You experience continued vomiting/nausea - Your incision begins to separate - Your incision shows signs of infection such as increased redness, swelling, excessive pain, heat, or drainage (light blood or clear fluid is normal) 7. General instructions: No lifting greater than 5 lbs for 1 week and not more than 20lbs the next 3?weeks. No driving until seen at the office in 5-7 days after surgery. If you do not move your bowels in the next 2 days, please tell?Dr. Paris. Please walk around your home every hour or two to prevent blood clots from forming in your legs. You do not need to wake from sleeping to walk. Please sleep in a bed or couch to prevent kinking at the hips and knees. Please take your incentive spirometer (your lung youth accommodation support worker) home with you and use it for the next few days to prevent pneumonia. You may shower, no hot tubs, baths or swimming pools.?Please follow the post op diet instructions you are?given by Dr Paris? and text me daily at 5-6pm for an update.?If you have any issues or concerns or questions please communicate this to him via text.? The Celebrate shakes have all of the bariatric vitamins you need if you consume these shakes. If you are drinking other protein shakes, you will need to purchase the Celebrate multivitamins and calcium that are available in the hospital gift shop on the first [facility] of the [facility].??Do not take anything without first discussing with Dr Paris. Please make sure you are consuming at least 40 ounces of fluids per day starting the?day AFTER your discharge from the hospital. Always drink 1-2 ml per minute using the 5ml?syringe. If you drink faster you may experience?bloating,?gas pain, burping, nausea or heartburn. In that case please slow down your pace and use the syringe to?understand better the?proper?pace and volume of drinking. Do not hesitate to contact the office with any questions at . The patient's medical history has been reviewed and they are considered low risk for post op DVT and therefore DVT prophylaxis is not considered necessary. Travel after surgery was reviewed. The patient has not disclosed any travel plans during the first 30 days after surgery and they have been advised that within the first 30 days after surgery any bus, plane, train or car travel over 2 hours in duration is contraindicated due to the possibility of developing blood clots from immobility. Any travel, needs to include periods of ambulation of 10 minutes in duration every 2 hours.? The patient was instructed to discuss any plans for travel during this period with their bariatric surgeon. Assessment: stable s/p laparoscopic sleeve gastrectomy Discharge Date/Time: 10/30/24 11:57
[2024-10-29 11:10] LABS: Hematocrit 26.3 % (37.0-47.0)
[2024-10-29 11:20] LABS: Anion Gap 12 (12-20); Blood Urea Nitrogen 14 mg/dL (9-16); Calcium 8.9 mg/dL (8.4-10.2); Carbon Dioxide 24 mmol/L (22-29); Chloride 107 mmol/L (96-108); Estimated Glomerular Filt Rate > 60; Glucose Random 155 mg/dL (60-115); Potassium 3.5 mmol/L (3.3-5.1); Sodium 139 mmol/L (135-145)
[2024-10-29] MEDS: Lactated Ringers 1,000 ML 100 ML IVCONT ×2 (12:13→21:21)
[2024-10-29] MEDS: HYDROmorphone HCl 0.5 MG/0.5 ML SYRINGE 0.25 MG IVPUSH (12:24)
[2024-10-29] MEDS: Acetaminophen 1,000 MG/100 ML PIGGYBACK 16.7 MG IV ×2 (15:34→21:18)
[2024-10-30] MEDS: Acetaminophen 1,000 MG/100 ML PIGGYBACK 16.7 MG IV ×2 (03:23→09:32)
[2024-10-30 03:24] VITALS: BP 109/57; PULSE 90; RESP 18; TEMP 37.2; O2SAT 94
[2024-10-30] MEDS: Levothyroxine Sodium 150 MCG TABLET 300 MCG PO (05:42)
[2024-10-30] MEDS: Pantoprazole Sodium 40 MG/10 ML VIAL IVPUSH (05:42)
[2024-10-30 06:11] LABS: MANUAL DIFF FLAG NO
[2024-10-30 06:25] LABS: Hematocrit 25.8 % (37.0-47.0); Hemoglobin 8.7 g/dl (12.0-16.0); Imm Gran Abs Auto 0.05 X10*3/uL (0.00-0.03); Imm Gran Pct Auto 0.8 % (0.0-0.4); Lymphocytes Absolute Auto 0.7 X10*3/uL (1.2-4.9); Lymphocytes Percent Auto 10.5 % (20-40); Mean Corpuscular HGB Conc 33.7 g/dl (31.0-35.0); Mean Corpuscular Hemoglobin 31.1 pg (27.0-33.0); Mean Corpuscular Volume 92.1 fL (80.0-98.0); Mean Platelet Volume 9.3 fL (9.4-12.3); Monocytes Absolute Auto 0.2 X10*3/uL (0.1-1.2); Monocytes Percent Auto 3.7 % (2-11); Neutrophils Absolute Auto 5.3 x10*3/uL (2.0-8.3); Platelet Count 197 X10*3/uL (160-400); Red Cell Distribution Width 13.4 % (11.0-16.0); White Blood Count 6.2 X10*3/uL (4.8-10.8)
[2024-10-30 06:36] LABS: Anion Gap 11 (12-20); Blood Urea Nitrogen 10 mg/dL (9-16); Calcium 9.1 mg/dL (8.4-10.2); Carbon Dioxide 25 mmol/L (22-29); Chloride 106 mmol/L (96-108); Creatinine Clr Calc Pharmacy 94.7; Estimated Glomerular Filt Rate > 60; Glucose Random 114 mg/dL (60-115); Potassium 3.8 mmol/L (3.3-5.1); Sodium 138 mmol/L (135-145)
[2024-10-30] MEDS: Lactated Ringers 1,000 ML 100 ML IVCONT (06:49)
[2024-10-30 07:16] VITALS: BP 118/55; PULSE 86; RESP 16; TEMP 37.1; O2SAT 94
[2024-10-30] MEDS: FLUoxetine HCl 20 MG CAPSULE 40 MG PO (07:28)
[2024-10-30] MEDS: buPROPion HCl XL 150 MG TAB.ER.24H PO (07:28)
--- NOTE | 2024-10-30 08:02 | HO.POSTANES ---
Post Anesthesia Evaluation Post Anesthesia Evaluation Date of Service: 10/30/24 Vital Signs: Vital Signs Temp Pulse Resp BP Pulse Ox O2 Del Method 10/30/24 07:16 98.8 F 86 16 118/55 L 94 Room Air 10/30/24 03:24 98.9 F 90 18 109/57 L 94 Room Air 10/29/24 23:00 98.9 F 95 18 125/64 96 Room Air Anesthesia: General Endotracheal-GETA Mental Status: Awake Pain Control: Satisfactory Nausea/Vomiting: None Hydration: Adequate Anesthesia-Related Issues: No Anes. Related Issues
--- NOTE | 2024-10-30 11:42 | MHC.CM.PN ---
S/P Gastric sleeve Patient lives with her dtr. She is independent with all functional mobility. DP home self care. Patient brother will provide transportation home. Patient is discharged to home self care with family transport.
[2024-10-30 11:47] VITALS: BP 125/58; PULSE 99; RESP 14; TEMP 36.7; O2SAT 94
== END 2024-10-30 11:57 | disposition home or self-care (01) | DRG 403 ==
LOC: HO.SSSA 06:48 → HO.S3 11:18
PROVIDERS: Physician Assistant Surgical; Admitting Provider Pathology Anatomic Pathology & Clinical Pathology; PCP Student in an Organized Health Care Education/Training Program; Visit Provider Surgery
PROC: 0DB64Z3 Excision of Stomach, Percutaneous Endoscopic Approach, Vertical (ICD-10-PCS; CPT 43845; principal; 2024-10-29 07:30)
DX: E66.01 Morbid (severe) obesity due to excess calories (principal); K74.00 Hepatic fibrosis, unspecified; E03.9 Hypothyroidism, unspecified; G47.33 Obstructive sleep apnea (adult) (pediatric); F32.A Depression, unspecified; F41.9 Anxiety disorder, unspecified; E78.5 Hyperlipidemia, unspecified; K21.9 Gastro-esophageal reflux disease without esophagitis; M54.9 Dorsalgia, unspecified; Z79.890 Hormone replacement therapy; Z79.899 Other long term (current) drug therapy
CPT/HCPCS: 36415; 80048; 85014; 85018; 85025; 86850; 86900; 86901; 88304; 88307; 88342; A4649; C9145; J0131; J0690; J1100; J1171; J2003; J2250; J2310; J2371; J2405; J2470; J2598; J2704; J2795; J3010; J7120

== ENCOUNTER 2024-11-05 10:48 | Outpatient (AMB) | payer OTHER, SELFPAY ==
--- NOTE | 2024-11-05 11:13 | MHC.OFFVISWM ---
VS Expanded 11/05/24 11:22 BP 109/53 L Blood Pressure Location Rt brachial Blood Pressure Position Sitting Pulse 96 Pulse Source Pulse Oximeter Temp 98.3 F Temperature Source Temporal Artery Scan Pulse Oximetry 98 Oxygen Delivery Method Room Air Height 5 ft 1 in Weight 178 lb 6.4 oz BMI 33.7 Body Fat % 48.1 Body Fat Mass 85.8 Fat Free Mass 92.6 Visceral Fat Rating 13.0 Body Water % 36.8 Body Water Mass 65.6 Muscle Mass/Score 88.0 Basal Metabolic Rate/Score 1,327 Intake Visit Reasons: (OV) PO LSG 10/29/2024 President And Chief Executive Officer Required: No Allergies No Known Allergies Allergy (Verified 11/05/24 11:23) Medication List - Last Reconciled 11/05/24 by JESSE Jimenez atorvastatin 40 mg PO DAILY bupropion HCl XL 150 mg PO DAILY docusate sodium (Colace) 100 mg PO BID fluoxetine 40 mg PO DAILY levothyroxine 300 mcg PO DAILY ondansetron 4 mg PO Q6H PRN pantoprazole 40 mg PO DAILY sucralfate 10 mL PO BID HPI Comments Details: 59-year-old female returns to the office today in follow-up. She is 7 days post sleeve gastrectomy performed on 10/29/2024. She is tolerating 3 Premier protein shakes per day with 1 scoop each and approximately 20-30 oz of additional fluids. She has not yet moved her bowels. No complaints of pain, nausea, vomiting. [facility] Medical History (Updated 11/01/24 @ 00:01 by Leatha Coello) H. pylori infection GERD (gastroesophageal reflux disease) Sickle cell trait Elevated cholesterol Back pain Depression Obstructive sleep apnea on CPAP Hypothyroidism BMI 38.0-38.9,adult Surgical History (Updated 11/05/24 @ 11:24 by Alexa Farris CMA) S/P laparoscopic sleeve gastrectomy Hx of section Family History Mother High cholesterol Father No problems noted. Social History Household Members: Children Housing: House Are you a primary critical care specialist to a significant other at home: No Do you presently have visiting nurse or other home services: No Alcohol intake: never Patient Tobacco Use Status: Never used Tobacco Second Hand Smoke Exposure: No service: No Physical Exam GI Inspection: Yes incision (Clean, dry, intact.) Assessment & Plan Assessment & Plan (1) S/P laparoscopic sleeve gastrectomy: Code(s): Z98.84 - Bariatric surgery status Category: Surgical Plan: POD 7 s/p LSG on 10/29/[address] Paris Weight loss prior to surgery was 9.3 pounds or 4.6 % TBWL. Original weight on 06/16/2022 was 199.8 pounds and op weight was 190.5 pounds. Be sure to text Dr Paris exactly 1 week after surgery your weight from your home scale so he can adjust your meal plan. Continue meal plan until f/u w Kristy in 2 weeks May shower, no submersion in bath for another week Continue abdominal binder with activity and exercise for the next 2 weeks. Exercise prior to surgery was stationary bike and may resume No abdominal exercises for 6 weeks post operatively Will be emailed link to post op video for review Reminded of the pace of drinking, 2 mL per minute, 1 oz/15 min.
[2024-11-05 11:22] VITALS: BP 109/53; PULSE 96; TEMP 36.8; O2SAT 98; BMI 33.7
== END 2024-11-05 11:38 | disposition home or self-care (01) ==
PROVIDERS: Visit Provider Physician Assistant Surgical
DX: Z98.84 Bariatric surgery status (principal)
CPT/HCPCS: 99024

== ENCOUNTER → 2024-11-05 10:48 | Outpatient (BNVA) | payer OTHER, SELFPAY | PROVIDERS: Visit Provider Physician Assistant Surgical | DX: Z98.84 Bariatric surgery status (principal) | CPT/HCPCS: 99212 ==

== ENCOUNTER → 2024-11-06 11:08 | Outpatient (AMB) | payer OTHER, SELFPAY ==
--- NOTE | 2024-11-06 11:05 | A.OFFWM_ITS ---
Intake Intake Visit Reasons: VIDEO PO LSG 10/29/2024 Allergies No Known Allergies Allergy (Verified 11/05/24 11:23) PFSH Medical History (Updated 11/01/24 @ 00:01 by Leatha Coello) H. pylori infection GERD (gastroesophageal reflux disease) Sickle cell trait Elevated cholesterol Back pain Depression Obstructive sleep apnea on CPAP Hypothyroidism BMI 38.0-38.9,adult Surgical History (Updated 11/05/24 @ 11:24 by Alexa Farris CMA) S/P laparoscopic sleeve gastrectomy Hx of section Family History Mother High cholesterol Father No problems noted. Social History Household Members: Children Housing: House Are you a primary residential child care counselor to a significant other at home: No Do you presently have visiting nurse or other home services: No Alcohol intake: never Patient Tobacco Use Status: Never used Tobacco Second Hand Smoke Exposure: No service: No Behavioral Health Assessment Weight Management Therapy Therapy Notes Details Subjective: The patient underwent bariatric surgery last week on 10/29/2024. She reports a positive surgical experience and a smooth recovery with no pain. Tolerating well meal plan. Her daughter has been helping her. Sleeping well, good energy. Objective: The patient presents for a post-operative telehealth visit. We discussed her overall recovery and progress thus far. A PHQ-9 was administered, showing no concerns or active Sx of depression. We focused on habit building, cultivating a positive mindset, and maintaining consistency. Constructive feedback was provided to support her ongoing progress. Assessment/Response: * Mental status: Euthymic * Risk reported/identified: Food/Weight/Diet Expectations of change Start weight - 08/16/2024: 196Lbs Surgery day weight 10/29/2024: 190Lbs PO weight on 11/05/2024:178Lbs PT target's weight: . -Current meal plan: 3 shakes and 20-30 o z of additional fluids - Pace of drinkin mL per minute, 1 oz/15 min. -Exercise plan: None yet. Questionnaires PHQ-9 Over the last 2 weeks, how often have you been bothered by any of the following problems? 1. Little interest or pleasure in doing things: not at all 2. Feeling down, depressed, or hopeless: not at all 3. Trouble falling or staying asleep, or sleeping too much: not at all 4. Feeling tired or having little energy: several days 5. Poor appetite or overeating: not at all 6. Feeling bad about yourself - or that you are a failure or have let yourself or your family down: not at all 7. Trouble concentrating on things, such as reading the newspaper or watching television: not at all 8. Moving or speaking so slowly that other people could have noticed. Or the opposite - being so fidgety or restless that you have been moving around a lot more than usual: not at all 9. Thoughts that you would be better off or of hurting yourself in some way: not at all Total score: 1 Depression Screening Interpretation: Negative Depression Screening Done: Yes 04707 - PHQ-9 Billing: Yes Source: Developed by Drs. Mateus Stout, Tori Luis, Kvng Montiel and colleagues, with an educational maria m from [employer]. Assessment & Plan Assessment & Plan (1) Depression: Code(s): F32.A - Depression, unspecified Plan F/up in 2 weeks for Post-op BH support. Next roberta: 11/21/2024 at 11am, PV Telehealth Telehealth Telehealth Platform: Telephone Location of provider rendering services: other Location of patient: address on file Patient Identification confirmed using: Name, : Yes Telehealth method: voice only Patient verbally consented to treatment: Yes Patient verbally consented to billing insurance company: Yes Patient informed of any privacy concerns related to visit: Yes Minutes spent on Phone/Video with Pt.: 35 Coding Level of Care Code Established Pt Tele Psytx 30 mins (23590) Patient Type Established Diagnoses Depression F32.A Additional Codes PHQ-9 - 87199 - PHQ-9 Billing: Yes ([id number]) Time Spent (min) 35
== END ==
PROVIDERS: Visit Provider Counselor Mental Health
DX: F32.1 Major depressive disorder, single episode, moderate (principal)
CPT/HCPCS: 90832

== ENCOUNTER → 2024-11-21 11:22 | Outpatient (AMB) | payer OTHER, SELFPAY ==
--- NOTE | 2024-11-21 11:05 | MHC.WMTHER ---
Intake Intake Visit Reasons: (TV) PO LSG 10/29/2024 Allergies No Known Allergies Allergy (Verified 11/05/24 11:23) PFSH Medical History (Updated 11/01/24 @ 00:01 by Leatha Coello) H. pylori infection GERD (gastroesophageal reflux disease) Sickle cell trait Elevated cholesterol Back pain Depression Obstructive sleep apnea on CPAP Hypothyroidism BMI 38.0-38.9,adult Surgical History (Updated 11/05/24 @ 11:24 by Alexa Farris CMA) S/P laparoscopic sleeve gastrectomy Hx of section Family History Mother High cholesterol Father No problems noted. Social History Household Members: Children Housing: House Are you a primary manager of care to a significant other at home: No Do you presently have visiting nurse or other home services: No Alcohol intake: never Patient Tobacco Use Status: Never used Tobacco Second Hand Smoke Exposure: No service: No Behavioral Health Assessment Weight Management Therapy Therapy Notes Details Subjective: PT reports she has been doing well, however feeling very thirsty with the shakes. PT reports her children has been helping her and so far her mood is good. she is aware of the need to start exercising. Objective: The patient presents for a post-op f/up telehealth visit. She had surgery little over 3 weeks ago. PT reports she has been following meal plan as instructed (3 shakes, 1 bar at day). Reminded importance of following meal plan as instructed. Worked on habit building, compliance w/ instructions to prevent any PO complications and mindset PO. Brainstormed options for physical activity to meet weekly/daily goal. Provided community resources (wellness center) for access to free wellness room with exercise machines. Assessment/Response: Mental status: Euthymic. Risk reported/identified: None Food/Weight/Diet Expectations of change Start weight - 08/16/2024: 196Lbs Surgery day weight 10/29/2024: 190Lbs PO weight on 11/05/2024:178Lbs PO weight as of 11/19/24: 174Lbs. PT target's weight: 130 Lbs. . -Current meal plan: 3 shakes (each has 8oz milk and 1 scoop protein), 1 bar and 20-30 oz. of additional fluids (water and Gatorade) - Pace of drinkin mL per minute, 1 oz/15 min. -Exercise plan: stationary Bicycle, her goal is to do 300 calories a day. However is not fully assembled. Assessment & Plan Assessment & Plan (1) Depression: Code(s): F32.A - Depression, unspecified Plan F/up in 1 weeks for Post-op BH support. Next roberta: 11/28/2024 9:30am via [employer]. Telehealth Telehealth Telehealth Platform: [employer] Location of provider rendering services: other Location of patient: address on file Patient Identification confirmed using: Name, : Yes Telehealth method: voice only Patient verbally consented to treatment: Yes Patient verbally consented to billing insurance company: Yes Patient informed of any privacy concerns related to visit: Yes Minutes spent on Phone/Video with Pt.: 45 Coding Level of Care Code Established Pt Tele Psytx 45 mins (24746) Patient Type Established Diagnoses Depression F32.A Time Spent (min) 45
== END ==
LOC: HO.HBST 11:22
PROVIDERS: Visit Provider Counselor Mental Health
DX: F32.A Depression, unspecified (principal)
CPT/HCPCS: 90834

== ENCOUNTER → 2024-11-21 11:22 | Outpatient (BNVA) | payer OTHER, SELFPAY | PROVIDERS: Visit Provider Counselor Mental Health ==

== ENCOUNTER 2024-11-27 11:45 | Outpatient (AMB) | payer OTHER, SELFPAY ==
--- NOTE | 2024-11-27 11:49 | A.OFFVIS_ITS ---
VS Expanded 11/27/24 12:00 BP 106/54 L Blood Pressure Location Rt brachial Blood Pressure Position Sitting Pulse 80 Pulse Source Pulse Oximeter Temp 97.3 F Temperature Source Temporal Artery Scan Pulse Oximetry 99 Oxygen Delivery Method Room Air Height 5 ft 1 in Weight 170 lb BMI 32.1 Body Fat % 46.6 Body Fat Mass 79.2 Fat Free Mass 90.8 Visceral Fat Rating 12.0 Body Water % 37.9 Body Water Mass 64.4 Muscle Mass/Score 86.2 Basal Metabolic Rate/Score 1,295 Intake Visit Reasons: (OV) PO LSG 10/29/2024 Allergies No Known Allergies Allergy (Verified 11/27/24 11:58) Medication List - Last Reconciled 11/27/24 by JESSE Le atorvastatin 40 mg PO DAILY bupropion HCl XL 150 mg PO DAILY cholecalciferol (vitamin D3) 25 mcg PO DAILY docusate sodium (Colace) 100 mg PO BID fluoxetine 40 mg PO DAILY levothyroxine 300 mcg PO DAILY ondansetron 4 mg PO Q6H PRN pantoprazole 40 mg PO DAILY sucralfate 10 mL PO BID HPI Comments Details: This?is a?59?yo female who is s/p LSG 10/29/2024. Presents for 1 month post op visit. Weight at last visit 1 week postop was 178.4 pounds; weight today is 170 pounds, representing a 8.4 pound weight loss with a BMI today of 32.1.? No com plaints of nausea, abdominal pain or reflux, or constipation. Reports 2 episodes of vomiting since last visit. Thinks this was due perhaps to Gatorade. Reports she believes she is staying hydrated. Happy that her back pain has improved. Present meal plan includes: 3 Premier shakes- 1 scoop each 1 protein bar tried chewable vitamin but did not tolerate well Exercise routine includes: bought a machine but hasn't put together yet [facility] Medical History (Updated 11/01/24 @ 00:01 by Leatha Coello) H. pylori infection GERD (gastroesophageal reflux disease) Sickle cell trait Elevated cholesterol Back pain Depression Obstructive sleep apnea on CPAP Hypothyroidism BMI 38.0-38.9,adult Surgical History (Updated 11/05/24 @ 11:24 by Alexa Farris CMA) S/P laparoscopic sleeve gastrectomy Hx of section Family History Mother High cholesterol Father No problems noted. Social History Household Members: Children Housing: House Are you a primary healthcare management to a significant other at home: No Do you presently have visiting nurse or other home services: No Alcohol intake: never Patient Tobacco Use Status: Never used Tobacco Second Hand Smoke Exposure: No service: No Assessment & Plan Assessment & Plan (1) S/P laparoscopic sleeve gastrectomy: Code(s): Z98.84 - Bariatric surgery status Category: Surgical (2) Obesity: Code(s): E66.9 - Obesity, unspecified Category: Medical Qualifiers: Obesity type: due to excess calories Obesity classification: adult class 2 (BMI 35 - 39.9) Serious obesity comorbidity presence: with serious comorbidity Body mass index: BMI 38.0-38.9 Qualified Code(s): E66.812 - Obesity, class 2; E66.01 - Morbid (severe) obesity due to excess calories; Z68.38 - Body mass index [BMI] 38.0-38.9, adult Plan Continue to follow meal plan per Dr. Shah, text weekly weights. Encouraged exercise to facilitate weight loss. Gave home exercise handout. Try MVI capsules instead of chewables, can mix granules into drinks. RTC 1 month. I spent a total of 30 minutes reviewing/updating records, examining the patient and counseling the patient on weight management as detailed above. Medications: New calcium citrate-vitamin D3 315 mg-5 mcg (200 unit) 1 tab PO BID 90 tabs 3RF
[2024-11-27 12:00] VITALS: BP 106/54; PULSE 80; TEMP 36.3; O2SAT 99; BMI 32.1
== END 2024-11-27 12:38 | disposition home or self-care (01) ==
PROVIDERS: Visit Provider Physician Assistant Surgical
DX: E66.812 Obesity, class 2 (principal); Z68.38 Body mass index [BMI] 38.0-38.9, adult; Z90.3 Acquired absence of stomach [part of]; Z98.84 Bariatric surgery status
CPT/HCPCS: 99024

== ENCOUNTER → 2024-11-27 11:45 | Outpatient (BNVA) | payer OTHER, SELFPAY | PROVIDERS: Visit Provider Physician Assistant Surgical | DX: E66.812 Obesity, class 2 (principal); E66.01 Morbid (severe) obesity due to excess calories; Z98.84 Bariatric surgery status; Z68.38 Body mass index [BMI] 38.0-38.9, adult | CPT/HCPCS: 99212 ==

== ENCOUNTER 2024-11-28 09:44 | Outpatient (AMB) | payer OTHER, SELFPAY ==
--- NOTE | 2024-11-28 09:45 | A.OFFWM_ITS ---
Intake Intake Visit Reasons: (TV) PO LSG 10/29/2024 Allergies No Known Allergies Allergy (Verified 11/27/24 11:58) PFSH Medical History H. pylori infection GERD (gastroesophageal reflux disease) Sickle cell trait Elevated cholesterol Back pain Depression Obstructive sleep apnea on CPAP Hypothyroidism BMI 38.0-38.9,adult Surgical History S/P laparoscopic sleeve gastrectomy Hx of section Family History Mother High cholesterol Father No problems noted. Social History Household Members: Children Housing: House Are you a primary memory care program resident to a significant other at home: No Do you presently have visiting nurse or other home services: No Alcohol intake: never Patient Tobacco Use Status: Never used Tobacco Second Hand Smoke Exposure: No service: No Behavioral Health Assessment Weight Management Therapy Therapy Notes Details Subjective: PT reports she is doing well, she has not been able to put the bike together. Mood is well and is doing well physically. Objective: The patient presents for a post-op f/up telehealth visit as check-in Post-op. Discussed functioning, progress and needs. Reflected on habit building for successful weight-loss journey and life changes after bariatric surgery. Also talked about supports. Assessment/Response: * Mental status: WNL. Good functioning. * Risk reported/identified: None. Food/Weight/Diet Expectations of change Start weight - 08/16/2024: 196Lbs Surgery day weight 10/29/2024: 190Lbs PO weight on 11/05/2024:178Lbs PO weight as of 11/19/24: 174Lbs. PO weight as of 11/27/2024: 170Lbs PT target's weight: 130 Lbs. . -Current meal plan: 3 shakes (each has 8 oz milk and 1 scoop protein), 1 bar and 20-30 oz. of additional fluids (water and Gatorade) - Pace of drinkin mL per minute, 1 oz/15 min. -Exercise plan: stationary Bicycle, her goal is to do 300 calories a day. Hasn't started. Assessment & Plan Assessment & Plan (1) Depression: Code(s): F32.A - Depression, unspecified (2) S/P laparoscopic sleeve gastrectomy: Code(s): Z98.84 - Bariatric surgery status Plan We will continue doing weekly check-ins for support after weight loss surgery NExt roberta: 12/06/2024 at 3:00pm (30 min) Telehealth Telehealth Telehealth Platform: Telephone Location of provider rendering services: other Location of patient: address on file Patient Identification confirmed using: Name, : Yes Telehealth method: voice only Patient verbally consented to treatment: Yes Patient verbally consented to billing insurance company: Yes Patient informed of any privacy concerns related to visit: Yes Minutes spent on Phone/Video with Pt.: 30 Coding Level of Care Code Established Pt Tele Psytx 30 mins (64158) Patient Type Established Diagnoses Depression F32.A S/P laparoscopic sleeve gastrectomy Z98.84 Time Spent (min) 30 Comment start time: 9:45am, End time: 10:15am
== END 2024-11-28 10:14 | disposition home or self-care (01) ==
LOC: HO.HBST 09:44
PROVIDERS: Visit Provider Counselor Mental Health
DX: F32.A Depression, unspecified (principal); Z98.84 Bariatric surgery status
CPT/HCPCS: 90832

== ENCOUNTER 2024-12-06 15:16 | Outpatient (AMB) | payer OTHER, SELFPAY ==
--- NOTE | 2024-12-06 15:00 | A.OFFWM_ITS ---
Intake Intake Visit Reasons: (TV) PO LSG 10/29/2024 *PO Check in* Allergies No Known Allergies Allergy (Verified 11/27/24 11:58) PFSH Medical History H. pylori infection GERD (gastroesophageal reflux disease) Sickle cell trait Elevated cholesterol Back pain Depression Obstructive sleep apnea on CPAP Hypothyroidism BMI 38.0-38.9,adult Surgical History S/P laparoscopic sleeve gastrectomy Hx of section Family History Mother High cholesterol Father No problems noted. Social History Household Members: Children Housing: House Are you a primary director career to a significant other at home: No Do you presently have visiting nurse or other home services: No Alcohol intake: never Patient Tobacco Use Status: Never used Tobacco Second Hand Smoke Exposure: No service: No Behavioral Health Assessment Weight Management Therapy Therapy Notes Details Subjective: PT reports she is doing well, but she has not been consistent with exercise as her bike is not ready, she is trying to do daily outdoor walks. On the other hand, she reports feeling well emotionally with good energy. Objective: The patient presents for a post-op f/up telehealth visit as check-in Post-op. Discussed functioning, progress and needs. Reflected on habit building for successful weight-loss journey and life changes after bariatric surgery. Used problem solving for need to increase physical activity. Assessment/Response: * Mental status: WNL. Good functioning. * Risk reported/identified: None. Food/Weight/Diet Expectations of change Start weight - 08/16/2024: 196Lbs Surgery day weight 10/29/2024: 190Lbs PO weight on 11/05/2024:178Lbs PO weight as of 11/19/24: 174Lbs. PO weight as of 11/27/2024: 170Lbs PO weight as of 12/04/2024: 168Lbs PT target's weight: 130 Lbs. . - Current meal plan: 3 shakes (each has 8oz milk and 1 scoop protein), 1 bar and 20-30 oz. of additional fluids (water and Gatorade) - Exercise plan: She has a stationary Bi cycle, her goal is to do 300 calories a day but Hasn't started. She has been trying to do outdoor walks. Assessment & Plan Assessment & Plan (1) Depression: Code(s): F32.A - Depression, unspecified (2) S/P laparoscopic sleeve gastrectomy: Code(s): Z98.84 - Bariatric surgery status Plan Follow up on 12/17 at 12pm phone call - 30 min PO check in Telehealth Telehealth Telehealth Platform: Telephone Location of provider rendering services: practice address Location of patient: address on file Patient Identification confirmed using: Name, : Yes Telehealth method: voice only Patient verbally consented to treatment: Yes Patient verbally consented to billing insurance company: Yes Patient informed of any privacy concerns related to visit: Yes Minutes spent on Phone/Video with Pt.: 25 Coding Level of Care Code Established Pt Tele Psytx 30 mins ([id number]) Patient Type Established Diagnoses Depression F32.A S/P laparoscopic sleeve gastrectomy Z98.84 Time Spent (min) 25
== END 2024-12-06 15:32 | disposition home or self-care (01) ==
LOC: HO.HBST 15:16
PROVIDERS: Visit Provider Counselor Mental Health
DX: F32.A Depression, unspecified (principal); Z98.84 Bariatric surgery status
CPT/HCPCS: 90832

== ENCOUNTER → 2024-12-06 15:16 | Outpatient (BNVA) | payer OTHER, SELFPAY | PROVIDERS: Visit Provider Counselor Mental Health ==

== ENCOUNTER → 2024-12-17 12:23 | Outpatient (BNVA) | payer OTHER, SELFPAY | PROVIDERS: Visit Provider Counselor Mental Health ==

== ENCOUNTER → 2024-12-17 12:23 | Outpatient (AMB) | payer OTHER, SELFPAY ==
--- NOTE | 2024-12-17 12:00 | MHC.WMTHER ---
Intake Intake Visit Reasons: (TV) PO LSG 10/29/2024 *PO Check in* Allergies No Known Allergies Allergy (Verified 11/27/24 11:58) PFSH Medical History H. pylori infection GERD (gastroesophageal reflux disease) Sickle cell trait Elevated cholesterol Back pain Depression Obstructive sleep apnea on CPAP Hypothyroidism BMI 38.0-38.9,adult Surgical History S/P laparoscopic sleeve gastrectomy Hx of section Family History Mother High cholesterol Father No problems noted. Social History Household Members: Children Housing: House Are you a primary special needs caregiver to a significant other at home: No Do you presently have visiting nurse or other home services: No Alcohol intake: never Patient Tobacco Use Status: Never used Tobacco Second Hand Smoke Exposure: No service: No Behavioral Health Assessment Weight Management Therapy Therapy Notes Details Subjective: PT reports she is doing well, has been doing outdoor walks when the weather allows (at least 4 days at week). On the other hand, she reports feeling well emotionally with good energy, however had some stress around family dynamics with her 32 y/o son who has autism. Objective: The patient presents for a post-op f/up telehealth visit as check-in Post-op. . Discussed functioning, progress and needs. Reflected on habit building for successful weight-loss journey and life changes after bariatric surgery. Used problem solving for addressing family issues, worked in communication, assertiveness and boundaries setting. Supported with guilty and ways to remain consistent w/ limits. Assessment/Response: Mental status: WNL. Good functioning. Risk reported/identified: None. Food/Weight/Diet Expectations of change Start weight - 08/16/2024: 196Lbs Surgery day weight 10/29/2024: 190Lbs PO weight on 11/05/2024:178Lbs PO weight as of 11/19/24: 174Lbs. PO weight as of 11/27/2024: 170Lbs PO weight as of 12/04/2024: 168Lbs PO weight as of 12/11/2024: 163Lbs PT target's weight: 130 Lbs. . - Current meal plan: 3 shakes (each has 8oz milk and 1 scoop protein), 1 bar, and 20-30 oz. of additional fluids (water and Gatorade) - Exercise plan: She has a stationary Bicycle, her goal is to do 300 calories a day, but she hasn't started. She has been trying to do outdoor walks. Assessment & Plan Assessment & Plan (1) Depression: Code(s): F32.A - Depression, unspecified (2) S/P laparoscopic sleeve gastrectomy: Code(s): Z98.84 - Bariatric surgery status Plan F/up in 2 weeks, we will have a regular length session. Next roberta: 12/30/24 at 12, Phone visit. Telehealth Telehealth Telehealth Platform: Telephone Location of provider rendering services: practice address Location of patient: address on file Patient Identification confirmed using: Name, : Yes Telehealth method: voice only Patient verbally consented to treatment: Yes Patient verbally consented to billing insurance company: Yes Patient informed of any privacy concerns related to visit: Yes Minutes spent on Phone/Video with Pt.: 30 Coding Level of Care Code Established Pt Tele Psytx 30 mins ([id number]) Patient Type Established Diagnoses Depression F32.A S/P laparoscopic sleeve gastrectomy Z98.84 Time Spent (min) 30
== END ==
PROVIDERS: Visit Provider Counselor Mental Health
DX: F32.A Depression, unspecified (principal); Z98.84 Bariatric surgery status
CPT/HCPCS: 90832

== ENCOUNTER → 2024-12-30 12:10 | Outpatient (BNVA) | payer OTHER, SELFPAY | PROVIDERS: Visit Provider Counselor Mental Health ==

== ENCOUNTER → 2024-12-30 12:10 | Outpatient (AMB) | payer OTHER, SELFPAY ==
--- NOTE | 2024-12-30 12:00 | A.OFFWM_ITS ---
Intake Intake Visit Reasons: (TV) PO LSG 10/29/2024 *PO Check in* Allergies No Known Allergies Allergy (Verified 11/27/24 11:58) PFSH Medical History H. pylori infection GERD (gastroesophageal reflux disease) Sickle cell trait Elevated cholesterol Back pain Depression Obstructive sleep apnea on CPAP Hypothyroidism BMI 38.0-38.9,adult Surgical History S/P laparoscopic sleeve gastrectomy Hx of section Family History Mother High cholesterol Father No problems noted. Social History Household Members: Children Housing: House Are you a primary child care supervisor to a significant other at home: No Do you presently have visiting nurse or other home services: No Alcohol intake: never Patient Tobacco Use Status: Never used Tobacco Second Hand Smoke Exposure: No service: No Behavioral Health Assessment Weight Management Therapy Therapy Notes Details Subjective The patient reports feeling stressed and frustrated due to ongoing family dynamics. She also notes a 1 lb weight gain and reports that she has not been engaging in regular exercise. Objective The patient attended a post-operative follow-up visit via telehealth for routine check-in. Discussion focused on current functioning, progress, and areas of need. Sources of stress were explored, and the patient was provided with supportive feedback regarding effective communication, setting healthy boundaries, practicing assertiveness, and prioritizing her own treatment goals and self- care. Barriers to physical activity were identified, and a collaborative plan was developed to help the patient incorporate movement into her routine at home. Assessment/Response * Mental status: Within normal limits; good overall functioning. * Risk: No risk concerns reported or observed. Food/Weight/Diet Expectations of change Start weight - 08/16/2024: 196Lbs Surgery day weight 10/29/2024: 190Lbs PO weight on 11/05/2024:178Lbs PO weight as of 11/19/24: 174Lbs. PO weight as of 11/27/2024: 170Lbs PO weight as of 12/04/2024: 168Lbs PO weight as of 12/11/2024: 163Lbs PT target's weight: 130 Lbs. . - Current meal plan: 3 shakes (each has 8oz milk and 1 scoop protein), 1 bar, and 20-30 oz. of additional fluids (water and Gatorade) - Exercise plan: She has a stationary Bi cycle, her goal is to do 300 calories a day, but she hasn't started. She has been trying to do outdoor walks. Assessment & Plan Assessment & Plan (1) Depression: Code(s): F32.A - Depression, unspecified (2) S/P laparoscopic sleeve gastrectomy: Code(s): Z98.84 - Bariatric surgery status Plan Continue monitoring progress and supporting coping strategies in future sessions. Encourage follow-through with home-based movement plan. Reinforce use of communication and boundary-setting tools. Next roberta: 01/15/25 at 9:30am, Phone visit. Telehealth Telehealth Telehealth Platform: Telephone Location of provider rendering services: other Location of patient: address on file Patient Identification confirmed using: Name, : Yes Telehealth method: voice only Patient verbally consented to treatment: Yes Patient verbally consented to billing insurance company: Yes Patient informed of any privacy concerns related to visit: Yes Minutes spent on Phone/Video with Pt.: 30 Coding Level of Care Code Established Pt Tele Psytx 30 mins (87030) Patient Type Established Diagnoses Depression F32.A S/P laparoscopic sleeve gastrectomy Z98.84 Time Spent (min) 30
== END ==
PROVIDERS: Visit Provider Counselor Mental Health
DX: F32.1 Major depressive disorder, single episode, moderate (principal); Z98.84 Bariatric surgery status
CPT/HCPCS: 90832

== ENCOUNTER 2025-01-03 13:43 | Outpatient (AMB) | payer OTHER, SELFPAY ==
--- NOTE | 2025-01-03 13:46 | A.OFFVIS_ITS ---
VS Expanded 01/03/25 14:17 BP 108/60 Blood Pressure Location Lt brachial Blood Pressure Position Sitting Pulse 104 H Pulse Source Pulse Oximeter Temp 97.0 F Temperature Source Temporal Artery Scan Pulse Oximetry 99 Oxygen Delivery Method Room Air Height 5 ft 1 in Weight 159 lb BMI 30.0 Body Fat % 43.8 Body Fat Mass 69.6 Fat Free Mass 89.2 Visceral Fat Rating 11.0 Body Water % 63.2 Body Water Mass 63.2 Muscle Mass/Score 84.6 Basal Metabolic Rate/Score 1,262 Intake Visit Reasons: (OV) PO LSG 10/29/2024 Allergies No Known Allergies Allergy (Verified 11/27/24 11:58) Medication List - Last Reconciled 01/03/25 by JESSE Le atorvastatin 40 mg PO DAILY bupropion HCl XL 150 mg PO DAILY calcium citrate-vitamin D3 315 mg-5 mcg (200 unit) 1 tab PO BID cholecalciferol (vitamin D3) 25 mcg PO DAILY docusate sodium (Colace) 100 mg PO BID docusate sodium (Colace) 100 mg PO DAILY fluoxetine 40 mg PO DAILY levothyroxine 300 mcg PO DAILY ondansetron 4 mg PO Q6H PRN pantoprazole 40 mg PO DAILY PRN sucralfate 10 mL PO BID HPI Comments Details: This?is a?59?yo female who is s/p LSG 10/29/2024. Presents for 2 month post op visit. Weight at last visit on 11/27/2024 was 170 pounds with a BMI of 32.1, weight today is 159 pounds, representing an 11 pound weight loss with a BMI today of 30.? No complaints of abdominal pain or reflux, or constipation. Occasional nausea when drinking too fast Present meal plan includes: 3 Premier shakes- 1 scoop each 1 protein bar switched to MVI capsule- Celebrate, tolerating better, also taking calcium Exercise routine includes: bought a machine for home but still hasn't put together walking outside, home videos [facility] Medical History H. pylori infection GERD (gastroesophageal reflux disease) Sickle cell trait Elevated cholesterol Back pain Depression Obstructive sleep apnea on CPAP Hypothyroidism BMI 38.0-38.9,adult Surgical History S/P laparoscopic sleeve gastrectomy Hx of section Family History Mother High cholesterol Father No problems noted. Social History Household Members: Children Housing: House Are you a primary daycare worker to a significant other at home: No Do you presently have visiting nurse or other home services: No Alcohol intake: never Patient Tobacco Use Status: Never used Tobacco Second Hand Smoke Exposure: No service: No Review of Systems Const Denies weakness ENT Denies dizziness Card Denies chest pain, Denies chest pain with activity, Denies syncope, Denies rapid heart rate, Denies pedal edema, Denies edema, Denies leg edema, Denies lightheadedness, Denies palpitations, Denies dyspnea, Denies dyspnea on exertion and Denies orthopnea Resp Denies cough, Denies dyspnea and Denies dyspnea on exertion GI Denies hematochezia and Denies change in stool character Musc Denies abnormal gait, Denies muscle cramps, Denies muscle weakness, Denies numbness, Denies radiating pain into limb and Denies tingling Neuro Denies abnormal gait, Denies dizziness, Denies syncope, Denies numbness, Denies tingling and Denies weakness Endo Denies palpitations Assessment & Plan Assessment & Plan (1) S/P laparoscopic sleeve gastrectomy: Code(s): Z98.84 - Bariatric surgery status Category: Surgical (2) Obesity: Code(s): E66.9 - Obesity, unspecified Category: Medical Qualifiers: Obesity type: due to excess calories Obesity classification: adult class 2 (BMI 35 - 39.9) Serious obesity comorbidity presence: with serious co morbidity Body mass index: BMI 38.0-38.9 Qualified Code(s): E66.812 - Obesity, class 2; E66.01 - Morbid (severe) obesity due to excess calories; Z68.38 - Body mass index [BMI] 38.0-38.9, adult Plan Continue to text with Dr Shah weekly and communicate weight measurements. Can discuss starting solid food with Dr Shah at next week's check in. Due to complete carafate and PPI. Discussed no activity restrictions. Ok for Biotin. Ok to travel to to visit her mom. RTC 1 month.
[2025-01-03 14:17] VITALS: BP 108/60; PULSE 104; TEMP 36.1; O2SAT 99
== END 2025-01-03 14:42 | disposition home or self-care (01) ==
LOC: HO.HBS 13:43
PROVIDERS: Visit Provider Physician Assistant Surgical
DX: E66.812 Obesity, class 2 (principal); Z68.38 Body mass index [BMI] 38.0-38.9, adult; Z90.3 Acquired absence of stomach [part of]; Z98.84 Bariatric surgery status
CPT/HCPCS: 99024

== ENCOUNTER → 2025-01-03 13:43 | Outpatient (BNVA) | payer OTHER, SELFPAY | PROVIDERS: Visit Provider Physician Assistant Surgical | DX: E66.812 Obesity, class 2 (principal); E66.01 Morbid (severe) obesity due to excess calories; Z98.84 Bariatric surgery status; Z68.38 Body mass index [BMI] 38.0-38.9, adult | CPT/HCPCS: 99212 ==

== ENCOUNTER 2025-01-15 12:55 | Outpatient (AMB) | payer OTHER, SELFPAY ==
--- NOTE | 2025-01-15 12:28 | A.OFFWM_ITS ---
Intake Intake Visit Reasons: (TV) PO LSG 10/29/2024 *PO Check in* Allergies No Known Allergies Allergy (Verified 11/27/24 11:58) PFSH Medical History H. pylori infection GERD (gastroesophageal reflux disease) Sickle cell trait Elevated cholesterol Back pain Depression Obstructive sleep apnea on CPAP Hypothyroidism BMI 38.0-38.9,adult Surgical History S/P laparoscopic sleeve gastrectomy Hx of section Family History Mother High cholesterol Father No problems noted. Social History Household Members: Children Housing: House Are you a primary health care / medical job titles to a significant other at home: No Do you presently have visiting nurse or other home services: No Alcohol intake: never Patient Tobacco Use Status: Never used Tobacco Second Hand Smoke Exposure: No service: No Behavioral Health Assessment Weight Management Therapy Therapy Notes Details PT initially scheduled for 9:30, but requested the roberta for after 12 due to phone issues. Subjective: Client reports feeling well overall following surgery. She acknowledged not being as consistent with physical activity as recommended by Dr. Shah but expressed a positive outlook and satisfaction with her current progress. Objective: Client attended a post-operative follow-up via Telehealth. Session focused on client?s functioning, adjustment to post-op lifestyle, and barriers to maintaining routine?particularly related to physical activity. Client was receptive to feedback and engaged in discussion around behavioral strategies for building consistency. Briefly reviewed relapse prevention and the importance of routine to support long-term outcomes. Used motivational interviewing to reinforce autonomy and self-efficacy. Psychoeducation provided around post-op behavioral goals, activity pacing, and managing potential lapses. Encouraged self-monitoring and use of internal motivators for accountability. Assessment/Response: * Mental status: Stable mood, euthymic affect, appropriate insight, and good overall functioning. * Risk reported/identified: None. Plan: PT declined further visits as she is doing well. She aknowledges the need to excercise. Stated she will reach out to this provider if in need for another visit. Food/Weight/Diet Expectations of change Start weight - 08/16/2024: 196 Lbs Surgery day weight 10/29/2024: 190 Lbs PO weight on 11/05/2024:178 Lbs PO weight as of 11/19/24: 174 Lbs. PO weight as of 11/27/2024: 170 Lbs PO weight as of 12/04/2024: 168 Lbs PO weight as of 12/11/2024: 163 Lbs PO weight as of 01/08/2025: 157 lbs PT target's weight: 130 Lbs. . - Current meal plan: 3 shakes (each has 8oz of milk and 1 scoop of protein), 1 bar, and 20-30 oz. of additional fluids (water and Gatorade) - Exercise plan: None. Assessment & Plan Assessment & Plan (1) Depression: Code(s): F32.A - Depression, unspecified (2) S/P laparoscopic sleeve gastrectomy: Code(s): Z98.84 - Bariatric surgery status Plan Client declined further behavioral health follow-ups at this time, reporting confidence in her current coping and adjustment. She acknowledged the ongoing need to increase physical activity and expressed willingness to resume sessions if needed. Next roberta: TBD - Client will reach out if further behavioral health support is needed. Telehealth Telehealth Telehealth Platform: [facility] Location of provider rendering services: other Location of patient: address on file Patient Identification confirmed using: Name, : Yes Telehealth method: voice only Patient verbally consented to treatment: Yes Patient verbally consented to billing insurance company: Yes Patient informed of any privacy concerns related to visit: Yes Minutes spent on Phone/Video with Pt.: 35 Coding Level of Care Code Established Pt Tele Psytx 30 mins (10008) Patient Type Established Diagnoses Depression F32.A S/P laparoscopic sleeve gastrectomy Z98.84 Time Spent (min) 35
== END 2025-01-15 13:05 | disposition home or self-care (01) ==
LOC: HO.HBST 12:55
PROVIDERS: Visit Provider Counselor Mental Health
DX: F32.A Depression, unspecified (principal); Z98.84 Bariatric surgery status
CPT/HCPCS: 90832

== ENCOUNTER → 2025-01-15 12:55 | Outpatient (BNVA) | payer OTHER, SELFPAY | PROVIDERS: Visit Provider Counselor Mental Health ==

== ENCOUNTER 2025-02-12 14:11 | Outpatient (AMB) | payer OTHER, SELFPAY ==
--- NOTE | 2025-02-12 13:55 | A.OFFVIS_ITS ---
VS Expanded 02/12/25 14:00 Height 5 ft 1 in Weight 154 lb BMI 29.1 Intake Visit Reasons: (TV) PO LSG 10/29/2024 Allergies No Known Allergies Allergy (Verified 11/27/24 11:58) Medication List - Last Reconciled 02/12/25 by JESSE Le atorvastatin 40 mg PO DAILY bupropion HCl XL 150 mg PO DAILY calcium citrate-vitamin D3 315 mg-5 mcg (200 unit) 1 tab PO BID cholecalciferol (vitamin D3) 25 mcg PO DAILY docusate sodium (Colace) 100 mg PO BID docusate sodium (Colace) 100 mg PO DAILY fluoxetine 40 mg PO DAILY inulin 2 grams PO DAILY levothyroxine 300 mcg PO DAILY ondansetron 4 mg PO Q6H PRN HPI Comments Details: This?is a?59?yo F who is s/p LSG 10/29/2024. Presents for 3.5 month post op visit. Weight at last visit on 01/03/2025 was 159 pounds with a BMI of 30, weight today is 154 pounds, representing a 5 pound weight loss with a BMI today of 29.1.? No complaints of nausea, emesis, abdominal pain or reflux. Reports constipation, uses Colace. Present meal plan includes: 3 Premier shakes- 1 scoop each 1 protein bar switched to MVI capsule- Celebrate, tolerating better, also taking calcium Exercise routine includes: bought a machine for home but still hasn't put together walking outside, home videos, goes to gym sometimes PFSH Medical History H. pylori infection GERD (gastroesophageal reflux disease) Sickle cell trait Elevated cholesterol Back pain Depression Obstructive sleep apnea on CPAP Hypothyroidism BMI 38.0-38.9,adult Surgical History S/P laparoscopic sleeve gastrectomy Hx of section Family History Mother High cholesterol Father No problems noted. Social History Household Members: Children Housing: House Are you a primary long term care pharmacist to a significant other at home: No Do you presently have visiting nurse or other home services: No Alcohol intake: never Patient Tobacco Use Status: Never used Tobacco Second Hand Smoke Exposure: No service: No Telehealth Telehealth Telehealth Platform: Telephone Location of provider rendering services: other Location of patient: address on file Patient Identification confirmed using: Name, : Yes Telehealth method: voice only Patient verbally consented to treatment: Yes Patient verbally consented to billing insurance company: Yes Patient informed of any privacy concerns related to visit: Yes Minutes spent on Phone/Video with Pt.: 16 Assessment & Plan Assessment & Plan (1) S/P laparoscopic sleeve gastrectomy: Code(s): Z98.84 - Bariatric surgery status Category: Surgical (2) Overweight: Code(s): E66.3 - Overweight Category: Medical Plan Continue weekly communication with Dr Bello Try to increase exercise. No reflux off PPI/carafate. Fiber tabs sent to pharmacy for constipation. Ok to use biotin. Encouraged pt to text me between visits with any questions or concerns, or if fiber is ineffective for relief of constipation. RTC 6-8w. Medications: New inulin 2 grams PO DAILY 90 tabs 3RF
[2025-02-12 14:00] VITALS: BMI 29.1
== END 2025-02-12 14:11 | disposition home or self-care (01) ==
LOC: HO.HBS 14:11
PROVIDERS: Visit Provider Physician Assistant Surgical
DX: E66.3 Overweight (principal); Z68.29 Body mass index [BMI] 29.0-29.9, adult; Z90.3 Acquired absence of stomach [part of]; Z98.84 Bariatric surgery status
CPT/HCPCS: 99214; G2211

== ENCOUNTER 2025-04-10 13:54 | Outpatient (AMB) | payer OTHER, SELFPAY ==
--- NOTE | 2025-04-10 14:15 | A.OFFVIS_ITS ---
VS Expanded 04/10/25 14:25 BP 101/53 L Blood Pressure Location Rt brachial Blood Pressure Position Sitting Pulse 66 Pulse Source Pulse Oximeter Temp 97.4 F Temperature Source Temporal Artery Scan Pulse Oximetry 100 Oxygen Delivery Method Room Air Height 5 ft 1 in Weight 146 lb 6.4 oz BMI 27.7 Body Fat % 38.4 Body Fat Mass 56.2 Fat Free Mass 90.2 Visceral Fat Rating 9.0 Body Water % 43.5 Body Water Mass 63.8 Muscle Mass/Score 85.6 Basal Metabolic Rate/Score 1,249 Intake Visit Reasons: OV PO LSG 10/29/24 Allergies No Known Allergies Allergy (Verified 11/27/24 11:58) Medication List - Last Reconciled 04/10/25 by JESSE Le atorvastatin 40 mg PO DAILY bupropion HCl XL 150 mg PO DAILY calcium citrate-vitamin D3 315 mg-5 mcg (200 unit) 1 tab PO BID cholecalciferol (vitamin D3) 25 mcg PO DAILY docusate sodium (Colace) 100 mg PO BID docusate sodium (Colace) 100 mg PO DAILY fluoxetine 40 mg PO DAILY inulin 2 grams PO DAILY levothyroxine 300 mcg PO DAILY HPI Comments Details: This?is a?59?yo F who is s/p LSG 10/29/2024. Presents for 5mo post op visit. Weight loss of 7.6lbs since last OV 2mo ago.? No complaints of nausea, emesis, abdominal pain or reflux. Continues to have constipation. Present meal plan includes: Premier shakes- 1 scoop each 1 protein bar has been taking in eggs, beans, soup, veg but according to pt was not cleared for a meal yet but Dr. Shah switched to MVI capsule- Celebrate, tolerating better, also taking calcium Exercise routine includes: bought a machine for home but still hasn't put together walking outside, home videos, goes to gym sometimes Have you been diagnosed with reflux (GERD)? Score 0-5: 0=no symptoms, 1=noticeable but not bothersome (slight or occasional), 2=noticeable, bothersome but not daily, 3=bothersome and daily, 4=affects daily activities, 5=incapacitating, unable to do daily activities How bad is the heartburn: 0 Heartburn when lying down: 0 Heartburn when standing up: 0 Heartburn after meals: 0 Does heartburn change your diet: 0 Does heartburn wake you up from sleep: 0 Do you have difficulty swallowin Do you have pain with swallowin If you take medication for reflux, does this affect your daily life: 0 Total score: 0 PFSH Medical History H. pylori infection GERD (gastroesophageal reflux disease) Sickle cell trait Elevated cholesterol Back pain Depression Obstructive sleep apnea on CPAP Hypothyroidism BMI 38.0-38.9,adult Surgical History S/P laparoscopic sleeve gastrectomy Hx of section Family History Mother High cholesterol Father No problems noted. Social History Household Members: Children Housing: House Are you a primary respiratory care instructor to a significant other at home: No Do you presently have visiting nurse or other home services: No Alcohol intake: never Patient Tobacco Use Status: Never used Tobacco Second Hand Smoke Exposure: No service: No Assessment & Plan Assessment & Plan (1) Overweight: Code(s): E66.3 - Overweight Category: Medical (2) S/P laparoscopic sleeve gastrectomy: Code(s): Z98.84 - Bariatric surgery status Category: Surgical Plan Gave case of Ensure shakes as pt reports finances are difficult. Gave handout on premade shakes available with food stamps. Will try to send rx for Ensure shakes per pt request although I am not sure they will be covered and made her aware of this. She will ask about starting solids at her next check-in with Dr Shah. Also gave healthy foods handout. Resent fiber rx as pt reports she did not receive it after last visit. Can also use MoM or Miralax for constipation. Labs ordered for 6mo visit. RTC 3mo. Orders: Orders Ferritin Today Z. - Bariatric surgery status TSH reflex Free T4 Today Z - Bariatric surgery status Vitamin B1 Today Z - Bariatric surgery status Comprehensive Met. Panel Today - Bariatric surgery status Lipid Panel Today - Bariatric surgery status IRON PROFILE Today - Bariatric surgery status Hemoglobin A1c Today Z98.84 - Bariatric surgery status Insulin Today Z98.84 - Bariatric surgery status Vitamin D 25-OH Total Today Z98.84 - Bariatric surgery status C Reactive Protein Today Z98.84 - Bariatric surgery status Vitamin A Today Z98.84 - Bariatric surgery status Zinc Today Z98.84 - Bariatric surgery status Vitamin B12 and Folate Today Z98.84 - Bariatric surgery status Complete Blood Count Auto Diff Today Z98. - Bariatric surgery status Medications: New simethicone (Gas Relief (simethicone)) 80 mg PO BID-QID PRN 60 tabs 1RF abdominal distention food supplemt, lactose-reduced Ensure Max Protein 1 ea PO BID 3,960 mL 3RF Refilled inulin 2 grams PO DAILY 90 tabs 3RF
--- NOTE | 2025-04-10 14:16 | A.OFFVIS_ITS ---
VS Expanded 04/10/25 14:25 BP 101/53 L Blood Pressure Location Rt brachial Blood Pressure Position Sitting Pulse 66 Pulse Source Pulse Oximeter Temp 97.4 F Temperature Source Temporal Artery Scan Pulse Oximetry 100 Oxygen Delivery Method Room Air Height 5 ft 1 in Weight 146 lb 6.4 oz BMI 27.7 Body Fat % 38.4 Body Fat Mass 56.2 Fat Free Mass 90.2 Visceral Fat Rating 9.0 Body Water % 43.5 Body Water Mass 63.8 Muscle Mass/Score 85.6 Basal Metabolic Rate/Score 1,249 Intake Visit Reasons: OV PO LSG 10/29/24 Allergies No Known Allergies Allergy (Verified 11/27/24 11:58) PFSH Medical History H. pylori infection GERD (gastroesophageal reflux disease) Sickle cell trait Elevated cholesterol Back pain Depression Obstructive sleep apnea on CPAP Hypothyroidism BMI 38.0-38.9,adult Surgical History S/P laparoscopic sleeve gastrectomy Hx of section Family History Mother High cholesterol Father No problems noted. Social History Household Members: Children Housing: House Are you a primary neonatal intensive care nurse to a significant other at home: No Do you presently have visiting nurse or other home services: No Alcohol intake: never Patient Tobacco Use Status: Never used Tobacco Second Hand Smoke Exposure: No service: No
[2025-04-10 14:25] VITALS: BP 101/53; PULSE 66; TEMP 36.3; O2SAT 100; BMI 27.7
== END 2025-04-10 15:06 | disposition home or self-care (01) ==
LOC: HO.HBS 13:54
PROVIDERS: Visit Provider Physician Assistant Surgical
DX: E66.3 Overweight (principal); Z68.27 Body mass index [BMI] 27.0-27.9, adult; Z90.3 Acquired absence of stomach [part of]; Z98.84 Bariatric surgery status
CPT/HCPCS: 99214; G2211

== ENCOUNTER → 2025-04-10 13:54 | Outpatient (BNVA) | payer OTHER, SELFPAY | PROVIDERS: Visit Provider Physician Assistant Surgical | DX: E66.3 Overweight (principal); Z98.84 Bariatric surgery status; Z68.27 Body mass index [BMI] 27.0-27.9, adult | CPT/HCPCS: 99212 ==

== ENCOUNTER 2025-04-29 08:41 | Outpatient (REF) | payer OTHER, SELFPAY ==
[2025-04-29 08:59] LABS: MANUAL DIFF FLAG NO
[2025-04-29 09:15] LABS: Hematocrit 28.0 % (37.0-47.0); Hemoglobin 9.4 g/dl (12.0-16.0); Imm Gran Abs Auto 0.01 X10*3/uL (0.00-0.03); Imm Gran Pct Auto 0.2 % (0.0-0.4); Lymphocytes Absolute Auto 2.3 X10*3/uL (1.2-4.9); Mean Corpuscular HGB Conc 33.6 g/dl (31.0-35.0); Mean Corpuscular Hemoglobin 30.8 pg (27.0-33.0); Mean Corpuscular Volume 91.8 fL (80.0-98.0); NRBC Abs Auto 0.000 X10*3/uL (0.0-0.012); NRBC Pct Auto 0.0 /100WBC (0.0-0.2); Platelet Count 209 X10*3/uL (160-400); Red Blood Count 3.05 X10*6/uL (4.20-5.50); White Blood Count 5.5 X10*3/uL (4.8-10.8)
[2025-04-29 09:23] LABS: Hemoglobin A1C 66.1894 umol/L; Total Hemoglobin (HGBA1C) 2592.3346 umol/L
[2025-04-29 09:42] LABS: Alanine Aminotransferase 24 U/L (0-31); Albumin Level 4.5 g/dL (3.5-5.0); Alkaline Phosphatase 61 U/L (39-117); Anion Gap 9 (12-20); Aspartate Amino Transferase 27 U/L (5-31); Blood Urea Nitrogen 15 mg/dL (9-16); Calcium 9.8 mg/dL (8.4-10.2); Carbon Dioxide 30 mmol/L (22-29); Chloride 109 mmol/L (96-108); Cholesterol 223 mg/dL (<200); Estimated Glomerular Filt Rate > 60; HDL Cholesterol 52 mg/dL (>40); Iron 80 mcg/dL (30-160); Percent Iron Saturation 29 % (15-50); Potassium 4.0 mmol/L (3.3-5.1); Sodium 144 mmol/L (135-145); Total Iron Binding Capacity 272 mcg/dL (228-428); Total Protein 7.2 g/dL (6.5-8.0); Triglycerides 95 mg/dL (<150); Unsaturated Iron Binding 192 ug/dL
[2025-04-29 10:07] LABS: Ferritin 274 ng/mL (10-250)
[2025-04-29 10:09] LABS: Folate 12.9 ng/mL (> or = 4.0); Vitamin B12 408 pg/mL (200-900)
[2025-04-29 11:26] LABS: Free T4 (Free Thyroxine) 0.73 ng/dL (0.71-1.85)
== END 2025-04-29 08:42 | disposition home or self-care (01) ==
LOC: HO.LAB 08:41
PROVIDERS: Visit Provider Physician Assistant Surgical
DX: Z98.84 Bariatric surgery status (principal)
CPT/HCPCS: 36415; 80053; 80061; 82306; 82607; 82728; 82746; 83036; 83525; 83540; 84425; 84439; 84443; 84590; 84630; 85025; 86140

== ENCOUNTER 2025-07-21 16:07 | Outpatient (AMB) | payer MEDICAID, SELFPAY ==
[2025-07-21 16:21] VITALS: BP 115/60; PULSE 71; TEMP 36.5; O2SAT 100; BMI 27.5
--- NOTE | 2025-07-21 16:21 | A.OFFVIS_ITS ---
VS Expanded 07/21/25 16:21 BP 115/60 Blood Pressure Location Lt brachial Blood Pressure Position Sitting Pulse 71 Pulse Source Pulse Oximeter Temp 97.7 F Temperature Source Temporal Artery Scan Pulse Oximetry 100 Oxygen Delivery Method Room Air Height 5 ft 1 in Weight 145 lb 12.8 oz BMI 27.5 Body Fat % 38.9 Body Fat Mass 56.6 Fat Free Mass 89 Visceral Fat Rating 9.0 Body Water % 43.3 Body Water Mass 63 Muscle Mass/Score 84.4 Basal Metabolic Rate/Score 1,236 Intake Visit Reasons: OV PO LSG 10/29/24 Community Support Associate Required: No Allergies No Known Allergies Allergy (Verified 07/21/25 16:25) Medication List - Last Reconciled 07/21/25 by JESSE Le atorvastatin 40 mg PO DAILY bupropion HCl XL 150 mg PO DAILY calcium citrate-vitamin D3 315 mg-5 mcg (200 unit) 1 tab PO BID cholecalciferol (vitamin D3) 50 mcg PO DAILY docusate sodium (Colace) 100 mg PO BID docusate sodium (Colace) 100 mg PO DAILY fluoxetine 40 mg PO DAILY food supplemt, lactose-reduced 1 ea PO BID inulin 2 grams PO DAILY iron,carbonyl-vitamin C 65 mg iron- 125 mg (Vitron-C) 1 tab PO BEDTIME levothyroxine 300 mcg PO DAILY simethicone (Gas Relief (simethicone)) 80 mg PO BID-QID PRN HPI Comments Details: This is a 59 yo F who is s/p LSG 10/29/2024. Presents for 8mo post op visit. Weight stable since last OV 3mo ago. No complaints of nausea, emesis, abdominal pain or reflux. Continues to have constipation. Present meal plan includes: Premier shakes- 1 scoop each 1 protein bar has been taking in eggs, beans, soup, veg but according to pt was not cleared for a meal yet but Dr. Shah she is inconsistent with her meal plan, hasn't spoken to Dr Shah switched to MVI capsule- Celebrate, tolerating better, also taking calcium Exercise routine includes: bought a machine for home but still hasn't put together walking outside but only 3-4 blocks, home videos, goes to gym sometimes PFSH Medical History H. pylori infection GERD (gastroesophageal reflux disease) Sickle cell trait Elevated cholesterol Back pain Depression Obstructive sleep apnea on CPAP Hypothyroidism BMI 38.0-38.9,adult Surgical History S/P laparoscopic sleeve gastrectomy Hx of section Family History Mother High cholesterol Father No problems noted. Social History Household Members: Children Housing: House Are you a primary skin care therapist to a significant other at home: No Do you presently have visiting nurse or other home services: No Alcohol intake: never Patient Tobacco Use Status: Never used Tobacco Second Hand Smoke Exposure: No service: No Physical Exam Vital Signs: Last Vital Signs Temp 97.7 F 07/21/25 16:21 Pulse 71 07/21/25 16:21 BP 115/60 07/21/25 16:21 Pulse Ox 100 07/21/25 16:21 Oxygen Delivery Method Room Air 07/21/25 16:21 BMI result Body Mass Index 27.5 Assessment & Plan Assessment & Plan (1) Overweight: Code(s): E66.3 - Overweight Category: Medical (2) S/P laparoscopic sleeve gastrectomy: Code(s): Z98.84 - Bariatric surgery status Category: Surgical Plan Pt is inconsistent with nutrition and exercise. I have asked her to focus on nutrition for now. 9-11am Premier shake 6oz mixed with 2oz UAM 12pm 2 eggs or 4ff meat, with up to 4ff veg/salad/fruit 2-4pm another shake as above 6-8pm Pure protein bar We reviewed her labs. Her vit D and H/H were low so I had ordered supplements previously for this and pt reports she is taking. She states she was unaware of her high TSH although I had asked my office to communicate to her that her level was high and to follow up with PCP. I wrote down her TSH level and asked her to call her PCP tmrw. RTC in Oct for annual.
== END 2025-07-21 16:57 | disposition home or self-care (01) ==
LOC: HO.HBS 16:07
PROVIDERS: Visit Provider Physician Assistant Surgical
DX: E66.3 Overweight (principal); Z98.84 Bariatric surgery status
CPT/HCPCS: 99214

== ENCOUNTER → 2025-07-21 16:07 | Outpatient (BNVA) | payer MEDICAID, SELFPAY | PROVIDERS: Visit Provider Physician Assistant Surgical | DX: Z98.84 Bariatric surgery status (principal); E66.3 Overweight | CPT/HCPCS: 99212 ==